=== PATIENT | female | born 1975 | race Hispanic/Latino ===

== ENCOUNTER 2020-04-20 00:37 | Emergency (ER) | payer SELFPAY ==
[2020-04-20] VITALS (13 sets, daily range): BP systolic 98–111; BP diastolic 51–75; PULSE 86–130; RESP 15–28; TEMP 38; O2SAT 98–100
--- NOTE | ~2020-04-20 | CT_ITS ---
EXAMINATION: CT abdomen pelvis wo con DATE: 04/20/2020 01:42 INDICATION: Lower abdomen pain TECHNIQUE: Computed tomography (CT) of the abdomen and pelvis was performed without intravenous contr ast. The dose-length product was 534.82 mGy-cm. Automated exposure control and iterative reconstructi on technique were employed. COMPARISON: None. FINDINGS: Bibasilar dependent atelectasis. Heart size normal. No significant pleural or pericardial e ffusion. No significant vascular abnormality. No lymphadenopathy. Mild left ureterectasis. No obstruc ting stone or mass identified. There are nonobstructing bilateral renal stones. The liver, spleen, pancreas, adrenal glands are unremarkable. Nonobstructive bowel gas pattern. No ac [place] osseous abnormality. No soft tissue abnormality. IMPRESSION: 1. Mild left ureterectasis which may be due to recently passed stone or ascending urinary tract infec tion. 2: Nonobstructing bilateral nephrolithiasis. Reviewed, dictated and finalized at location B. [employer] IMPRESSION: 1. Mild left ureterectasis which may be due to recently passed stone or ascendi ng urinary tract infection. 2: Nonobstructing bilateral nephrolithiasis.
--- NOTE | 2020-04-20 01:24 | ED.ABDPAIN ---
HPI - Abdominal Pain General Chief Complaint: Abdominal Pain Stated Complaint: abd pain, burning when urinating Time Seen by Provider: 04/20/20 01:08 Source: patient Mode of arrival: ambulatory Limitations: no limitations History of Present Illness HPI narrative: Patient is a 44-year-old female complaining of lower abdominal pain accompanied by burning on urination and fever that started today. Patient states that she had nausea earlier but now resolved. Patient denies any chest pain, cough, nasal congestion, shortness of breath, diarrhea or rash. Related Data Allergies Allergy/AdvReac Type Severity Reaction Status Date / Time No Known Allergies Allergy Unverified 10/17/17 15:17 Review of Systems Review of Systems: All systems reviewed & are unremarkable except as noted in HPI and below Constitutional: Constitutional: Denies body ache(s), Denies excessive sweating, Denies fatigue, Denies headache(s), Denies lethargy, Denies malaise, Denies weakness and Denies weight loss Eyes: Eyes: Denies blurry vision, Denies change in vision and Denies loss of vision ENT: Denies dizziness, Denies ear discharge, Denies headache(s), Denies lip swelling, Denies epistaxis, Denies nasal congestion, Denies neck pain, Denies throat swelling and Denies tongue swelling Cardiovascular: Cardiovascular: Denies chest pain, Denies chest pain at rest, Denies chest pain with activity, Denies diaphoresis, Denies rapid heart rate, Denies edema, Denies irregular heart rhythm, Denies lightheadedness, Denies palpitations, Denies dyspnea and Denies dyspnea on exertion Respiratory: Respiratory: Denies chest congestion, Denies cough, Denies hemoptysis, Denies dyspnea and Denies dyspnea on exertion Gastrointestinal: Gastrointestinal: Denies abdominal pain, Denies melena, Denies hematochezia, Denies diarrhea, Denies nausea, Denies vomiting and Denies hematemesis Musculoskeletal: Musculoskeletal: Denies abnormal gait, Denies deformity, Denies joint swelling, Denies limited range of motion, Denies neck pain and Denies numbness Neurologic: Denies Abnormal speech present, Denies abnormal gait, Denies confusion, Denies dizziness, Denies headache(s), Denies focal weakness, Denies loss of vision, Denies numbness, Denies Other visual disturbances, Denies Sensory deficit (Neuro) and Denies weakness Psychiatric: Psychiatric: Denies confusion, Denies depression, Denies auditory hallucinations, Denies homicidal ideation and Denies suicidal ideation Endocrine: Endocrine: Denies cold intolerance, Denies excessive sweating, Denies fatigue, Denies heat intolerance and Denies palpitations Hematologic/Lymphatic: Hematologic/Lymphatic: Denies easy bleeding and Denies easy bruising Allergic/Immunologic: Allergic/Immunologic: Denies lip swelling, Denies throat swelling and Denies tongue swelling Exam Const: General: cooperative, healthy appearing, comfortable, no acute distress, well developed, alert and awake; No confusion Orientation/consciousness: oriented to person, oriented to place, oriented to time, patient oriented x3 and No confusion Limitations: no limitations HENMT: Head: normal to inspection, normocephalic and atraumatic Ears: hearing grossly normal bilaterally, TM normal on the right and TM normal on the left General nose exam: Normal external nose present, Normal nares present and No nasal discharge present Face and sinus: normal facial exam Mouth: Yes Normal oral and palatal mucosa present, Yes lip normal, Yes tongue normal and Yes oropharynx normal Throat: posterior oropharynx normal, tonsils normal and uvula midline Eyes: General: appearance normal, both eyes and all related structures Pupils: Equal, round and reactive pupils present EOM: EOMs intact bilaterally Neck: Neck: normal visual inspection, full ROM, no lymphadenopathy and no meningeal signs Chest: Chest palpation & inspection: normal inspection of the chest Resp: Effort & Inspection: normal respiratory ef
[2020-04-20 01:31] LABS: Basophils Percent Auto 0.1 % (0.2-1.2); Eosinophils Percent Auto 0.1 % (0-4.4); Hematocrit 37.1 % (37.0-47.0); Immature Granulocyte Absolute 0.03 K/mm3 (0.00-0.031); Immature Granulocyte Percent A 0.3 % (0-0.5); Lymphocytes Absolute Auto 0.65 K/mm3 (0.9-3.2); Lymphocytes Percent Auto 7.4 % (18.3-44.2); Mean Corpuscular HGB Conc 32.3 g/dl (32-36); Mean Corpuscular Hemoglobin 28.7 pg (26-34); Mean Corpuscular Volume 88.8 fl (80-100); Mean Platelet Volume 10.8 fl (7.4-10.4); Monocytes Absolute Auto 0.7 K/mm3 (0.1-0.6); Monocytes Percent Auto 8.3 % (2.6-8.5); Neutrophils Absolute Auto 7.4 K/mm3 (1.3-6.7); Neutrophils Percent Auto 83.8 % (45.5-73.1); Platelet Count Result 193 k/mm3 (150-375); Red Blood Count 4.18 M/mm3 (4.2-5.4); Red Cell Distribution Width 19.4 % (11.5-14.5); White Blood Count 8.8 K/mm3 (4.5-10.0)
[2020-04-20 01:42] LABS: Anion Gap 6 mmol/L (8-16); Blood Urea Nitrogen 14 mg/dL (7-17); Calcium 8.7 mg/dL (8.4-10.2); Carbon Dioxide 26 mmol/L (22-30); Chloride 105 mmol/L (98-107); Estimated CRCL calculation 95 ml/min; Estimated Glomerular Filt Rate > 60; Glucose 130 mg/dL (65-105); Potassium 3.6 mmol/L (3.4-5.0); Sodium 137 mmol/L (137-145)
[2020-04-20 01:43] LABS: Add Urine Microscopic? YES; Appearance Urine Cloudy (Clear); Bacteria Urine Trace /hpf; Bilirubin Urine Negative (Negative); Blood Urine 1+ (Negative); Color Urine Yellow (Yellow); Glucose Urine UA Negative (Negative); Ketones Urine Negative (Negative); Leukocyte Esterase Ur 3+ LEU/UL (Negative); Mucus Urine Rare /lpf; Nitrate Urine Negative (Negative); Protein Urine 2+ mg/dL (Negative); RBC Urine 21-50 /hpf (0-2); Specific Grav Ur 1.017 (1.001-1.035); Squamous Epithelial Cell Urine Few /hpf (Few); Urobilinogen Urine Negative mg/dL (<2.0); WBC Urine >75 /hpf
[2020-04-20] MEDS: KETOROLAC 30 MG/ML VIAL (*BKC) IV PUSH (01:47)
[2020-04-20] MEDS: ACETAMINOPHEN 325 MG TABLET 650 MG PO (01:47)
[2020-04-20] MEDS: SODIUM CHLORIDE 0.9% IV 1,000 ML 999 ML IV CONT (01:47)
[2020-04-20] MEDS: ONDANSETRON INJ 4 MG/2 ML VIAL IV PUSH (01:47)
== END 2020-04-20 03:32 | disposition home or self-care (01) ==
PROVIDERS: Emergency Provider Emergency Medicine; PCP Nurse Practitioner Women's Health
DX: N10 Acute pyelonephritis (principal)
CPT/HCPCS: 36415; 74176; 80048; 81001; 81025; 85025; 87077; 87086; 87088; 87186; 96361; 96374; 96375; 99284; A9270; J0696; J1885; J2405; J7030

== ENCOUNTER 2020-10-22 21:11 | Emergency (ER) | payer MEDICAID, SELFPAY ==
--- NOTE | ~2020-10-22 | US_ITS ---
EXAMINATION: US OB <=14 wk fetus w TV DATE: 10/23/2020 01:01 INDICATION: Ectopic . Bleeding and cramping. TECHNIQUE: Real-time transabdominal and transvaginal obstetric ultrasound. FINDINGS: No prior studies for comparison. The uterus measures 11.1 x 6.8 cm. There is an intrauterine gestational sac, with pole identifi ed. The crown rump length measures 0.35 cm, which correlates with a estimated gestational age of 6 w eeks 0 days. No heart motions detected. Yolk sac is present. Ovaries are not visualized. There is a hypoechoic region along the inferior margin of the gestational sac, suspicious for small subchor ionic hemorrhage. IMPRESSION: 1. Intrauterine gestational sac containing a pole which corresponds to a 6 week 0 day gestation . No heart motions are detected which may be due to early gestational age. Recommend follow-up serial quantitative beta-hCG levels and ultrasound as clinically indicated. 2: Possible small subchorionic hemorrhage. Reviewed, dictated and finalized at location B. IMPRESSION: 1. Intrauterine gestational sac containing a pole which corresponds to a 6 week 0 day gestation. No heart motions are detected which may be due to early gestational age. Recommend follow-up serial quantitative beta-hCG levels and ultrasound as clinically indicated. 2: Possible small subchorionic hemorrhage.
[2020-10-22 21:29] VITALS: BP 113/65; PULSE 71; RESP 18; TEMP 36.6; O2SAT 99
[2020-10-22 21:43] LABS: Basophils Percent Auto 0.3 % (0.2-1.2); Eosinophils Absolute Auto 0.1 K/mm3 (0-0.3); Eosinophils Percent Auto 1.4 % (0-4.4); Hematocrit 38.1 % (37.0-47.0); Hemoglobin 12.3 g/dL (12.0-15.0); Immature Granulocyte Absolute 0.01 K/mm3 (0.00-0.031); Immature Granulocyte Percent A 0.2 % (0-0.5); Lymphocytes Absolute Auto 3.15 K/mm3 (0.9-3.2); Lymphocytes Percent Auto 48.5 % (18.3-44.2); Mean Corpuscular HGB Conc 32.3 g/dl (32-36); Mean Corpuscular Hemoglobin 30.4 pg (26-34); Mean Corpuscular Volume 94.1 fl (80-100); Mean Platelet Volume 10.7 fl (7.4-10.4); Monocytes Absolute Auto 0.4 K/mm3 (0.1-0.6); Monocytes Percent Auto 6.8 % (2.6-8.5); Neutrophils Absolute Auto 2.8 K/mm3 (1.3-6.7); Neutrophils Percent Auto 42.8 % (45.5-73.1); Platelet Count Result 210 k/mm3 (150-375); Red Blood Count 4.05 M/mm3 (4.2-5.4); Red Cell Distribution Width 14.2 % (11.5-14.5); White Blood Count 6.5 K/mm3 (4.5-10.0)
--- NOTE | 2020-10-22 23:38 | ED.FEMALEGU ---
HPI - Female Genitourinary General Chief complaint: Vaginal Bleeding <Marian Vargas MD - Last Filed: 10/22/20 23:51> Stated complaint: vaginal bleeding, 10 weeks <Marian Vargas MD - Last Filed: 10/22/20 23:51> Time Seen by Provider: 10/22/20 23:18 <Marian Vargas MD - Last Filed: 10/22/20 23:51> Source: patient and family <Marian Vargas MD - Last Filed: 10/22/20 23:51> Mode of arrival: ambulatory <Marian Vargas MD - Last Filed: 10/22/20 23:51> Limitations: no limitations <Marian Vargas MD - Last Filed: 10/22/20 23:51> History of Present Illness HPI Narrative: Patient is 45 years old female presents with vaginal bleeding that started 3 days ago. Initially was brown, today is fresh red bright blood. Associated with slight diffuse abdominal cramps. Patient is telling me that she is 10 weeks , does not remember her last menstrual period, did not have any pelvic ultrasound yet. Patient is 7, para 5, 1. Patient denies any fever, chills, nausea, vomiting, chest pain or shortness of breath. History of COVID-19 infection April 2020, did not get vaccinated yet. <Marian Vargas MD - Last Filed: 10/22/20 23:51> Related Data Home medications: Home Medications Medication Instructions Recorded Confirmed No Home Medications 10/22/20 10/22/20 <Marian Vargas MD - Last Filed: 10/22/20 23:51> Allergies/Adverse reactions: Allergies Allergy/AdvReac Type Severity Reaction Status Date / Time No Known Allergies Allergy Unverified 10/22/20 23:45 <Marian Vargas MD - Last Filed: 10/22/20 23:51> Review of Systems Review of Systems: Narrative: CONSTITUTIONAL: Denies fever, chills, or sweats. EYES: Denies visual changes, redness, or discharge. ENT: Denies rhinorrhea, congestion, sore throat, or otalgia. CARDIOVASCULAR: Denies chest pain, palpitations, or edema. RESPIRATORY: Denies cough or dyspnea. GASTROINTESTINAL: Denies abdominal pain, nausea, vomiting, or diarrhea. GENITOURINARY: Denies dysuria or hematuria. SKIN: Denies rash or itching. MUSCULOSKELETAL: Denies back pain, joint pain, or myalgia. NEUROLOGIC: Denies headache, numbness, or weakness. PSYCHIATRIC: Denies anxiety or depression. <Marian Vargas MD - Last Filed: 10/22/20 23:51> Exam Narrative: Exam Narrative: General appearance: Well-developed, well-nourished, anxious, in tears, at the bedside Skin: Normal color Chest and respiratory: Airway patent, no respiratory distress, no accessory muscle use Heart: Regular rate/rhythm Abdomen: Soft, nontender, no organomegaly, quiet bowel sounds <Marian Vargas MD - Last Filed: 10/22/20 23:51> : External Female Exam: normal external appearance and normal appearance of the urethra <Marian Vargas MD - Last Filed: 10/22/20 23:51> Speculum Exam - Vagina: normal appearance of the vagina and vaginal bleeding (Slight vaginal bleeding of fresh red bright blood) <Marian Vargas MD - Last Filed: 10/22/20 23:51> Speculum Exam - Cervix: normal appearance of the cervix and Cervical os closed <Marian Vargas MD - Last Filed: 10/22/20 23:51> Bimanual exam- vagina & uterus: normal bimanual exam and enlarged <Marian Vargas MD - Last Filed: 10/22/20 23:51> Course Course Emergency Course: Stable <Marian Vargas MD - Last Filed: 10/22/20 23:51> Care turned over to myself at shift change by Dr. Vargas. Patient seen and evaluated by myself. Agree with initial H&P Discussed with Dr. Alarcon for Dr. Epps presentation work-up agrees with plan for discharge follow-up as an outpatient Discussed with patient results of workup and diagnosis. Discussed need for follow-up with primary care, proper use of medication, and reasons to return to the emergency d
[2020-10-22 23:57] VITALS: BP 108/71; PULSE 61
[2020-10-22 23:59] VITALS: BP 108/71; BP 112/74; PULSE 64; O2SAT 97
[2020-10-23] VITALS: BP 112/74; O2SAT 100
--- NOTE | 2020-10-23 00:07 | PC.NURSE ---
Pt. was unable to complete the third set of orthostatic blood pressures due to fear from her bleeding.
[2020-10-23] MEDS: SODIUM CHLORIDE 0.9% IV 1,000 ML 999 ML IV CONT (00:10)
--- NOTE | 2020-10-23 00:35 | PC.NURSE ---
Pt to US at this time
[2020-10-23 01:05] VITALS: BP 118/72; PULSE 81; RESP 17; O2SAT 100
[2020-10-23 01:09] VITALS: BP 118/72; O2SAT 100
[2020-10-23 02:05] LABS: Basophils Percent Auto 0.3 % (0.2-1.2); Eosinophils Absolute Auto 0.1 K/mm3 (0-0.3); Eosinophils Percent Auto 1.2 % (0-4.4); Hematocrit 34.4 % (37.0-47.0); Hemoglobin 11.3 g/dL (12.0-15.0); Immature Granulocyte Absolute 0.02 K/mm3 (0.00-0.031); Immature Granulocyte Percent A 0.3 % (0-0.5); Lymphocytes Absolute Auto 2.88 K/mm3 (0.9-3.2); Lymphocytes Percent Auto 44.1 % (18.3-44.2); Mean Corpuscular HGB Conc 32.8 g/dl (32-36); Mean Corpuscular Hemoglobin 30.7 pg (26-34); Mean Corpuscular Volume 93.5 fl (80-100); Mean Platelet Volume 10.6 fl (7.4-10.4); Monocytes Absolute Auto 0.5 K/mm3 (0.1-0.6); Monocytes Percent Auto 7.5 % (2.6-8.5); Neutrophils Percent Auto 46.6 % (45.5-73.1); Platelet Count Result 181 k/mm3 (150-375); Red Blood Count 3.68 M/mm3 (4.2-5.4); Red Cell Distribution Width 14.2 % (11.5-14.5); White Blood Count 6.5 K/mm3 (4.5-10.0)
--- NOTE | 2020-10-23 02:23 | PC.NURSE ---
Lab called about delay in blood work, lab states they will get it done shortly.
[2020-10-23 02:27] VITALS: BP 97/67; PULSE 73; RESP 18; O2SAT 100
[2020-10-23 02:29] VITALS: BP 114/82
[2020-10-23 03:34] VITALS: BP 104/64; PULSE 65; RESP 18; O2SAT 99
== END 2020-10-23 03:16 | disposition home or self-care (01) ==
PROVIDERS: Emergency Medicine; Emergency Provider Emergency Medicine; PCP Nurse Practitioner Women's Health
DX: O20.0 Threatened abortion (principal); O09.521 Supervision of elderly multigravida, first trimester; Z86.16 Personal history of COVID-19; Z3A.01 Less than 8 weeks gestation of pregnancy
CPT/HCPCS: 36415; 76801; 76817; 84702; 85025; 85461; 96360; 99284; J7030

== ENCOUNTER 2023-07-16 17:20 | Emergency (ER) | payer BC, SELFPAY ==
[2023-07-16 17:40] VITALS: BP 112/53; PULSE 70; RESP 16; TEMP 36.2; O2SAT 100
[2023-07-16 19:35] VITALS: BP 107/63; PULSE 68; RESP 16; TEMP 36.6; O2SAT 100
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
[2023-07-16] MEDS: ACETAMINOPHEN 500 MG TABLET 1000 MG PO (19:54)
[2023-07-16] MEDS: KETOROLAC 15 MG/ML VIAL (*BKC) IV PUSH (19:56)
[2023-07-16] MEDS: PROCHLORPERAZINE EDISYLATE 10 MG/2 ML VIAL IV PUSH (19:57)
[2023-07-16 20:41] LABS: Influenza A QL RT-PCR Negative (Negative); Influenza B QL RT-PCR Negative (Negative); RSV RNA, RT-PCR Negative (Negative); SARS-CoV-2 RNA PCR Negative (Negative)
[2023-07-16 20:57] VITALS: BP 117/83; PULSE 67; RESP 16; TEMP 36.6; O2SAT 99
== END 2023-07-16 21:01 | disposition home or self-care (01) ==
PROVIDERS: Emergency Provider Student in an Organized Health Care Education/Training Program
DX: R51.9 Headache, unspecified (principal); Z20.822 Contact with and (suspected) exposure to COVID-19
CPT/HCPCS: 87637; 96374; 96375; 99284; A9270; J0780; J1885; J7050

== ENCOUNTER 2023-09-19 17:43 | Emergency (ER) | payer SELFPAY ==
[2023-09-19 17:48] VITALS: BP 111/67; PULSE 77; RESP 20; TEMP 36.5; O2SAT 100
--- NOTE | 2023-09-19 21:09 | ED.GENADULT ---
[facility] - General Adult General Chief complaint: Headache Stated complaint: headache x5 days Time Seen by Provider: 09/19/23 20:48 Source: patient Mode of arrival: ambulatory Limitations: no limitations History of Present Illness [facility] narrative: This is a 48-year-old female who presents to the ED with chief complaint of 5 days of headache. Reports it is worse on the right side. She reports the headache radiates from right temporal scalp lesion down to the right side the neck and shoulder. Reports she has had migraines in the past but never 1 that lasted this long. Reports some intermittent tingling to her extremities but that has since resolved. Reports a little bit of sinus congestion but has not feeling ill otherwise. She has been taking Tylenol 1 g for pain relief with minimal improvement. Endorses nausea but no vomiting. Denies neck stiffness, fevers, chills, chest pain, shortness of breath, focal weakness, speech difficulty, vision change, abdominal pain. Related Data Allergies Allergy/AdvReac Type Severity Reaction Status Date / Time No Known Allergies Allergy Verified 09/19/23 21:13 Review of Systems Review of Systems: All systems as dictated in [facility] Social History Social History (Updated 07/18/23 @ 00:14 by Carin Quach MD) Living arrangements: with family Additional living arrangements comments: and kids Exam Narrative: GENERAL: Well-appearing, well-nourished, and in no acute distress. HEAD: Normocephalic, atraumatic. EYES: PERRLA and EOMI. ENT: Nares clear, no rhinorrhea or epistaxis. Mucous membranes moist. Oropharynx without tonsillar hypertrophy exudate or other lesions. NECK: Supple. No adenopathy or masses. No meningeal signs CHEST: No respiratory distress. Clear to auscultation. No wheezes rales or rhonchi HEART: Regular rate and rhythm. No murmur heard. Normal peripheral pulses. ABDOMEN: Soft, nontender, nondistended, normal active bowel sounds. MSK: Normal range of motion. No edema. SKIN: Warm, dry, no rash. NEURO: Alert and oriented x4. No focal deficits. Cranial nerves 2-12 intact. 5/5 strength and sensation in the upper and lower extremities. Ambulatory without difficulty. Negative pronator drift. Coordination intact. PSYCH: Normal mood and affect. Course Reevaluation(s) Reevaluation #1: Patient is feeling much improved overall after migraine cocktail. She feels ready to go home. Date: 09/19/23 Time: 22:34 Vital Signs Vital signs: Vital Signs Temperature 97.7 F 09/19/23 17:48 Pulse Rate 77 09/19/23 17:48 Respiratory Rate 20 09/19/23 17:48 Blood Pressure 111/67 09/19/23 17:48 Pulse Oximetry 100 09/19/23 17:48 Temperature 97.7 F 09/19/23 17:48 Pulse Rate 69 09/19/23 23:15 Respiratory Rate 18 09/19/23 23:15 Blood Pressure 107/65 09/19/23 23:15 Pulse Oximetry 100 09/19/23 23:15 Medical Decision Making MDM Narrative Medical decision making narrative: This is a 48-year-old female who presents to the ED with chief complaint of migraine headache for the past 5 days. Vitals are normal. Exam is benign. No meningeal signs. Neurologic exam is fully intact. Lab work is unremarkable. She improved greatly with headache cocktail. She feels ready to go home. Symptoms and presentation consistent with migraine. Pt will be discharged in stable condition. Return precautions given and supportive measures discussed. Pt is understanding and agreeable with plan for discharge and follow-up with PCP. Vital Signs Vital Signs: Vital Signs Temperature 97.7 F 09/19/23 17:48 Pulse Rate 77 09/19/23 17:48 Respiratory Rate 20 09/19/23 17:48 Blood Pressure 111/67 09/19/23 17:48 Pulse Oximetry 100 09/19/23 17:48 Temperature 97.7 F 09/19/23 17:48 Pulse Rate 69 09/19/23 23:15 Respiratory Rate 18 09/19/23 23:15 Blood Pressure 107/65 09/19/23 23:15 Pulse Oximetry 100 09/19/23 23:15 Lab Da
[2023-09-19] MEDS: diphenhydrAMINE HCl INJ 50 MG/ML VIAL 25 MG IV PUSH (21:19)
[2023-09-19] MEDS: PROCHLORPERAZINE EDISYLATE 10 MG/2 ML VIAL IV PUSH (21:21)
[2023-09-19] MEDS: KETOROLAC 15 MG/ML VIAL (*BKC) IV PUSH (21:22)
[2023-09-19] MEDS: SODIUM CHLORIDE 0.9% IV 1,000 ML 999 ML IV CONT (21:27)
[2023-09-19 21:30] LABS: Basophils Percent Auto 0.1 % (0.2-1.2); Eosinophils Absolute Auto 0.1 K/mm3 (0-0.3); Eosinophils Percent Auto 1.5 % (0-4.4); Hematocrit 34.5 % (37.0-47.0); Hemoglobin 10.9 g/dL (12.0-15.0); Immature Granulocyte Absolute 0.01 K/mm3 (0.00-0.031); Immature Granulocyte Percent A 0.1 % (0-0.5); Lymphocytes Percent Auto 44.3 % (18.3-44.2); Mean Corpuscular HGB Conc 31.6 g/dl (32-36); Mean Corpuscular Hemoglobin 28.7 pg (26-34); Mean Corpuscular Volume 90.8 fl (80-100); Mean Platelet Volume 10.8 fl (7.4-10.4); Monocytes Absolute Auto 0.5 K/mm3 (0.1-0.6); Monocytes Percent Auto 6.2 % (2.6-8.5); Neutrophils Absolute Auto 3.5 K/mm3 (1.3-6.7); Neutrophils Percent Auto 47.8 % (45.5-73.1); Platelet Count Result 213 k/mm3 (150-375); Red Cell Distribution Width 13.6 % (11.5-14.5); White Blood Count 7.2 K/mm3 (4.5-10.0)
[2023-09-19 21:40] LABS: Alanine Aminotransferase 16 U/L (6-35); Albumin Level 4.2 g/dL (3.5-5.1); Alkaline Phosphatase 67 U/L (38-126); Anion Gap 4 mmol/L (4-12); Aspartate Amino Transferase 24 U/L (14-36); Bilirubin,Total 0.4 mg/dL (0.2-1.3); Blood Urea Nitrogen 16 mg/dL (7-17); Calcium 8.9 mg/dL (8.4-10.2); Carbon Dioxide 25 mmol/L (22-30); Chloride 107 mmol/L (98-107); Estimated CRCL calculation 126 ml/min; Estimated Glomerular Filt Rate > 60; Glucose 97 mg/dL (65-110); Potassium 3.6 mmol/L (3.4-5.0); Sodium 136 mmol/L (137-145)
[2023-09-19 23:15] VITALS: BP 107/65; PULSE 69; RESP 18; O2SAT 100
== END 2023-09-19 23:15 | disposition home or self-care (01) ==
PROVIDERS: Emergency Provider Physician Assistant
DX: G43.909 Migraine, unspecified, not intractable, without status migrainosus (principal)
CPT/HCPCS: 36415; 80053; 85025; 96361; 96374; 96375; 99284; J0780; J1200; J1885; J7030

== ENCOUNTER 2024-07-27 11:42 | Emergency (ER) | payer OTHER, SELFPAY ==
--- NOTE | ~2024-07-27 | CT_ITS ---
CT brain wo con Ordering provider: Jeane Darling PA-C History: 49 years Female with . headache, dizziness . Comparison: None. Technique: CT of the head without contrast. Radiation reduction technique utilized.The dose-length pr oduct was 681 mGy-cm. FINDINGS: BRAIN PARENCHYMA AND CSF SPACES: No midline shift, mass effect or hemorrhage. The brain parenchyma a nd CSF spaces are otherwise normal. VISUALIZED PARANASAL SINUSES: Well aerated. MASTOIDS: Well aerated. BONES: The bones appear intact. SOFT TISSUES: Visualized nasopharynx is normal. Superficial soft tissues are normal. IMPRESSION: No acute intracranial findings. Reviewed, dictated and finalized at location A.
[2024-07-27 11:50] VITALS: BP 105/64; PULSE 65; RESP 16; TEMP 36.6; O2SAT 100
--- NOTE | 2024-07-27 13:08 | ED_ITS ---
HPI - Headache General Chief Complaint: Headache <Jeane Darling PA-C - Last Filed: 07/30/24 10:15> Stated Complaint: headache <Jeane Darling PA-C - Last Filed: 07/30/24 10:15> Time Seen by Provider: 07/27/24 13:08 <Jeane Darling PA-C - Last Filed: 07/30/24 10:15> Focused HPI: This is a 49 year old female that presents to the ER for a headache. Ongoing over the last 2 days. Reports Tylenol does help, but it comes back. Reports today she feels like she can't focus and she feels unsteady on her feet. Reports nausea, vomiting. Reports a fever. Reports migraine history, but she does not take any prescribed medication for this. GENERAL: Well-appearing, well-nourished, and in no acute distress. HEAD: Normocephalic, atraumatic. CHEST: Clear to auscultation. ?No respiratory distress. HEART: Regular rate and rhythm.? NEURO: ?Alert and oriented x3. Patient screened in triage and initial orders placed.? ?Additional care and disposition to be based upon?diagnostic testing and treatment. <Jeane Darling PA-C - Last Filed: 07/30/24 10:15> History of Present Illness HPI Narrative: Agree with the HPI above. Patient states this feels similar to her previous migraines and responds well to IV migraine cocktail. Has not been evaluated for migraines outpatient or seen a neurologist. No trauma or injury. No fever, chills, meningismus symptoms. <Misael Quinones MD - Last Filed: 07/27/24 17:42> Related Data Allergies/Adverse Reactions: Allergies Allergy/AdvReac Type Severity Reaction Status Date / Time No Known Allergies Allergy Verified 07/27/24 14:55 <Jeane Darling PA-C - Last Filed: 07/30/24 10:15> Review of Systems 2 Review of Systems: As reviewed above in HPI <Misael Quinones MD - Last Filed: 07/27/24 17:42> PMFSH Social History Social History: Social History Living arrangements: with family Additional living arrangements comments: and kids <Jeane Darling PA-C - Last Filed: 07/30/24 10:15> Exam 2 Narrative: GENERAL: [Well-appearing, well-nourished, and in no acute distress.] HEAD: [Normocephalic, atraumatic.] EYES: [PERRLA and EOMI.] ENT: Nares clear, no rhinorrhea or epistaxis. Mucous membranes moist. NECK: Supple. CHEST: [Clear to auscultation. No respiratory distress.] HEART: [Regular rate and rhythm]. No murmur heard. [Normal peripheral pulses.] ABDOMEN: [Soft, nondistended], [nontender], [No rigidity or guarding] EXTREMITIES: Normal range of motion. [No edema.] SKIN: Warm, dry, no rash. NEURO: [No focal deficits]. Alert and oriented [x3.] PSYCH: [Normal mood and affect.] <Misael Quinones MD - Last Filed: 07/27/24 17:42> Course Vital Signs Vital signs: Vital Signs Temperature 97.9 F 07/27/24 11:50 Pulse Rate 65 07/27/24 11:50 Respiratory Rate 16 07/27/24 11:50 Blood Pressure 105/64 07/27/24 11:50 Pulse Oximetry 100 07/27/24 11:50 Temperature 97.9 F 07/27/24 11:50 Pulse Rate 82 07/27/24 17:57 Respiratory Rate 18 07/27/24 17:57 Blood Pressure 114/65 07/27/24 17:57 Pulse Oximetry 99 07/27/24 17:57 <Jeane Darling PA-C - Last Filed: 07/30/24 10:15> Vital Signs Temperature 97.9 F 07/27/24 11:50 Pulse Rate 65 07/27/24 11:50 Respiratory Rate 16 07/27/24 11:50 Blood Pressure 105/64 07/27/24 11:50 Pulse Oximetry 100 07/27/24 11:50 Temperature 97.9 F 07/27/24 11:50 Pulse Rate 82 07/27/24 17:57 Respiratory Rate 18 07/27/24 17:57 Blood Pressure 114/65 03/11/25 17:57 Pulse Oximetry 99 07/27/24 17:57 <Misael Quinones MD - Last Filed: 07/27/24 17:42> MDM - Headache MDM Narrative Medical decision making narrative: 49-year-old female with history of migraine headaches presenting for an intermittent migraine for last 10 days. Associated some nausea without vomiting. She states she feels somewhat dizzy but no falls. Has tried Tylenol at home with some mild relief and then her headache rebounds. Has not been evaluated for migraines outside the hospital. Has not seen a neurologist. She has an unremarkable physical examination, normal neurological assessment awake alert oriented with normal vital signs. Presently differential includes migraine headache, tension headache, cluster headache, cephalgia other cause. Low suspicion meningismus given her lack of fever or meningitis type symptoms. Workup ordered including a CBC, CMP, CT of the head and she was given a migraine cocktail including Compazine, diphenhydramine, Decadron, normal saline bolus. Patient frequent re-evaluated and improved after treatment. Workup shows no leukocytosis, anemia that appears around her baseline compared to previous labs. Normal platelet count. Electrolytes within normal limits, normal renal and hepatic function panel. Head CT without any remarkable findings. Patient re-evaluated with improvement her headache. She is stable and safe for discharge home at this time and given Neurology follow-up for her migraines. <Misael Quinones MD - Last Filed: 07/27/24 17:42> Medical Records Attestation: I reviewed the patient's medical records. <Misael Quinones MD - Last Filed: 07/27/24 17:42> Lab Data Attestation: I reviewed the patient's lab results. <Misael Quinones MD - Last Filed: 07/27/24 17:42> Result diagrams: 07/27/24 15:50 07/27/24 15:50 <Jeane Darling PA-C - Last Filed: 07/30/24 10:15> Labs: Lab Results 07/27/24 Range/Units 15:50 WBC 6.3 (4.5-10.0) K/mm3 RBC 4.19 L (4.2-5.4) M/mm3 Hgb 9.5 L (12.0-15.0) g/dL Hct 31.4 L (37.0-47.0) % MCV 74.9 L (80-100) fl MCH 22.7 L (26-34) pg MCHC 30.3 L (32-36) g/dl RDW 18.6 H (11.5-14.5) % Plt Count 332 D (150-375) k/mm3 MPV 10.4 (7.4-10.4) fl Immature Gran % (Auto) 0.2 (0-0.5) % Neut % (Auto) 42.1 L (45.5-73.1) % Lymph % (Auto) 50.0 H (18.3-44.2) % [place] % (Auto) 5.8 (2.6-8.5) % Eos % (Auto) 1.4 (0-4.4) % Baso % (Auto) 0.5 (0.2-1.2) % Lymph # (Auto) 3.13 (0.9-3.2) K/mm3 [place] # (Auto) 0.4 (0.1-0.6) K/mm3 Eos # (Auto) 0.1 (0-0.3) K/mm3 Baso # (Auto) 0.0 (0.0-0.1) K/mm3 Abs Immat Gran (auto) 0.01 (0.00-0.031) K/mm3 Absolute Neuts (auto) 2.6 (1.3-6.7) K/mm3 Absolute Nucleated RBC 0.000 (0.0-0.012) K/mm3 Band Neutrophils % Not Reportable Nucleated RBC % 0.0 (0.0-0.2) % Platelet Estimate Adequate (Adequate) Ovalocytes 1+ Schistocytes None seen Sodium 137 (137-145) mmol/L Potassium 3.8 (3.4-5.0) mmol/L Chloride 104 (98-107) mmol/L Carbon Dioxide 24 (22-30) mmol/L Anion Gap 9 (4-12) mmol/L BUN 15 (7-17) mg/dL Creatinine 0.53 L (0.7-1.0) mg/dL Estim Creat Clear Calc 116 ml/min Estimated GFR > 60 (59 - ) Glucose 101 (65-110) mg/dL Calcium 9.4 (8.4-10.2) mg/dL Total Bilirubin 0.4 (0.2-1.3) mg/dL AST 26 (14-36) U/L ALT 23 (6-35) U/L Alkaline Phosphatase 74 (38-126) U/L Total Protein 8.0 (6.3-8.2) g/dL Albumin 4.7 (3.5-5.1) g/dL Influenza A (RT-PCR) Negative (Negative) Influenza B (RT-PCR) Negative (Negative) RSV (RT-PCR) Negative (Negative) SARS-CoV-2 RNA (RT-PCR) Negative (Negative) <Jeane Darling PA-C - Last Filed: 07/30/24 10:15> Lab Results 07/27/24 Range/Units 15:50 WBC 6.3 (4.5-10.0) K/mm3 RBC 4.19 L (4.2-5.4) M/mm3 Hgb 9.5 L (12.0-15.0) g/dL Hct 31.4 L (37.0-47.0) % MCV 74.9 L (80-100) fl MCH 22.7 L (26-34) pg MCHC 30.3 L (32-36) g/dl RDW 18.6 H (11.5-14.5) % Plt Count 332 D (150-375) k/mm3 MPV 10.4 (7.4-10.4) fl Immature Gran % (Auto) 0.2 (0-0.5) % Neut % (Auto) 42.1 L (45.5-73.1) % Lymph % (Auto) 50.0 H (18.3-44.2) % [place] % (Auto) 5.8 (2.6-8.5) % Eos % (Auto) 1.4 (0-4.4) % Baso % (Auto) 0.5 (0.2-1.2) % Lymph # (Auto) 3.13 (0.9-3.2) K/mm3 [place] # (Auto) 0.4 (0.1-0.6) K/mm3 Eos # (Auto) 0.1 (0-0.3) K/mm3 Baso # (Auto) 0.0 (0.0-0.1) K/mm3 Abs Immat Gran (auto) 0.01 (0.00-0.031) K/mm3 Absolute Neuts (auto) 2.6 (1.3-6.7) K/mm3 Absolute Nucleated RBC 0.000 (0.0-0.012) K/mm3 Band Neutrophils % Not Reportable Nucleated RBC % 0.0 (0.0-0.2) % Platelet Estimate Adequate (Adequate) Ovalocytes 1+ Schistocytes None seen Sodium 137 (137-145) mmol/L Potassium 3.8 (3.4-5.0) mmol/L Chloride 104 (98-107) mmol/L Carbon Dioxide 24 (22-30) mmol/L Anion Gap 9 (4-12) mmol/L BUN 15 (7-17) mg/dL Creatinine 0.53 L (0.7-1.0) mg/dL Estim Creat Clear Calc 116 ml/min Estimated GFR > 60 (59 - ) Glucose 101 (65-110) mg/dL Calcium 9.4 (8.4-10.2) mg/dL Total Bilirubin 0.4 (0.2-1.3) mg/dL AST 26 (14-36) U/L ALT 23 (6-35) U/L Alkaline Phosphatase 74 (38-126) U/L Total Protein 8.0 (6.3-8.2) g/dL Albumin 4.7 (3.5-5.1) g/dL Influenza A (RT-PCR) Negative (Negative) Influenza B (RT-PCR) Negative (Negative) RSV (RT-PCR) Negative (Negative) SARS-CoV-2 RNA (RT-PCR) Negative (Negative) <Misael Quinones MD - Last Filed: 07/27/24 17:42> Imaging Data Attestation: I personally reviewed and interpreted this imaging study as follows: < Misael Quinones MD - Last Filed: 07/27/24 17:42> My impression: Impressions Head CT 07/27/24 13:23 IMPRESSION: No acute intracranial findings. <Misael Quinones MD - Last Filed: 07/27/24 17:42> Critical Care Time Critical Care Time Critical Care Time: No <Jeane Darling PA-C - Last Filed: 07/30/24 10:15> Discharge Plan Discharge Clinical Impression: Migraine Qualifiers: Migraine type: unspecified Status migrainosus presence: without status migrainosus Intractability: not intractable Qualified Code(s): G43.909 - Migraine, unspecified, not intractable, without status migrainosus <Jeane Darling PA-C - Last Filed: 07/30/24 10:15> Patient Disposition: Home, Self-Care <Jeane Darling PA-C - Last Filed: 07/30/24 10:15> Condition: Stable <Jeane Darling PA-C - Last Filed: 07/30/24 10:15> Instructions: Antibiotic Form, Migraine Headache (ED), Acute Headache (ED) <Jeane Darling PA-C - Last Filed: 07/30/24 10:15> Additional Instructions: Your workup is reassuring, head CT normal. Follow-up with regular doctor and will provide you a neurologist you can contact for outpatient follow-up and evaluation. Return with any new or worsening concerns. <Jeane Darling PA-C - Last Filed: 07/30/24 10:15> Patient Language: Korean <Jeane Darling PA-C - Last Filed: 07/30/24 10:15> Prescriptions: No Action acetaminophen 500 mg capsule 1,000 mg PO Q6H PRN (Reason: pain) Qty: 30 0RF ibuprofen 200 mg tablet 600 mg PO Q6H PRN (Reason: pain) Qty: 30 0RF <Jeane Darling PA-C - Last Filed: 07/30/24 10:15> Follow-up/Referrals: Raymond Villanueva MD [Physician] - 1 Week (Recurrent migraines) UNKNOWN,DOCTOR [Primary Care Provider] - <Jeane Darling PA-C - Last Filed: 07/30/24 10:15> Time of Disposition: 17:41 <Jeane Darling PA-C - Last Filed: 07/30/24 10:15> 17:41 <Misael Quinones MD - Last Filed: 03/11/25 17:42>
--- OUTSIDE RECORDS SUMMARY | 2024-07-27 13:19 | XMS_ITS | Data Portability ---
Author Organization [place] [facility], Main Office Address [address] [place] [address] Care Team Providers Care Consultants Intern Name Role Phone AJIT NIXON Primary Care Provider AJIT NIXON Referring Provider Assessment Encounter Date Assessment Date Assessment LastModified by Organization Details LastModified Time 12/03/2022 12/03/2022 This note is dictated and transcribed by [employer]. Tactical/Mobile Watch Officer variances may occur. Despite proofreading, typographical errors may occur. Not available 12/03/2022 09:12:42 03/11/2023 03/11/2023 This note is dictated and transcribed by [employer]. Tactical/Mobile Watch Officer variances may occur. Despite proofreading, typographical errors may occur. Not available 03/12/2023 12:00:50 Plan of Treatment Reminders Order Date Submit Date Provider Last Modified By Organization Details Last Modified Time Details Appointments None recorde d. Lab None recorde d. Referral None recorde d. Procedures None recorde d. Surgeries None recorde d. Imaging US, ankle 023 12/04/19 23 [facility] ([facility]), [address] [place], [address], 14:39:42 Medication Orders None recorde d. Patient TargetsNo targets recorded. Patient InstructionsNo instructions recorded. Reason for Referral None Reported. Results Created Date Observation Date Name Description Value Unit Range Abnormal Flag Note LastModifiedBy Organization Detail LastModifiedTime 07/24/19 22 07/23/2021 CBC W/O DIFFE RENTI AL white blood cells 6.7 x10'3 /uL 4.2-10 .8 Not Available [facility] (Lab) [address] [place], [address], 07/23/2021 18:04:32 07/24/19 22 07/23/2021 CBC W/O DIFFE RENTI AL red blood cells 4.14 x10'6 /uL 3.80-5 .20 Not Available [facility] (Lab) [address] [place], [address], 07/23/2021 18:04:32 07/24/19 22 07/23/2021 CBC W/O DIFFE RENTI AL hemoglobin 11.5 g/dL 12.0-1 5.6 low Not Available [facility] (Lab) [address] [place], [address], 07/23/2021 18:04:32 07/24/19 22 07/23/2021 CBC W/O DIFFE RENTI AL hematocrit 36.8 % 35.7-4 5.7 Not Available [facility] (Lab) [address] [place], [address], 07/23/2021 18:04:32 07/24/19 22 07/23/2021 CBC W/O DIFFE RENTI AL mean red cell volume 88.9 fL 82.0-9 9.0 Not Available [facility] (Lab) [address] [place], [address], 07/23/2021 18:04:32 07/24/19 22 07/23/2021 CBC W/O DIFFE RENTI AL mean red cell hemoglobin 27.8 pg 27.0-3 3.0 Not Available [facility] (Lab) [address] [place], [address], 07/23/2021 18:04:32 07/24/19 22 07/23/2021 CBC W/O DIFFE RENTI AL mean RBC HGB concentratio n 31.3 g/dL 31.0-3 6.0 Not Available [facility] (Lab) [address] [place], [address], 07/23/2021 18:04:32 07/24/19 22 07/23/2021 CBC W/O DIFFE RENTI AL red cell distribution width 14.9 % 11.8-1 5.5 Not Available [facility] (Lab) [address] [place], [address], 07/23/2021 18:04:32 07/24/19 22 07/23/2021 CBC W/O DIFFE RENTI AL platelets 245 x10'3 /uL 150-40 0 Not Available [facility] (Lab) [address] [place], [address], 07/23/2021 18:04:32 07/24/19 22 07/23/2021 CBC W/O DIFFE RENTI AL mean platelet volume 11.0 fL 9.0-12 .4 Not Available [facility] (Lab) [address] [place], [address], 07/23/2021 18:04:32 07/24/19 22 07/23/2021 APTT APTT 27.5 secon ds 22.2-3 1.5 Not Available [facility] (Lab) [address] [place], [address], 07/23/2021 17:57:10 07/24/19 22 07/23/2021 PROTI ME W/INR protime 10.6 secon ds 9.5-11 .5 Not Available [facility] (Lab) [address] [place], [address], 07/23/2021 17:57:05 07/24/19 22 07/23/2021 PROTI ME W/INR INR 1.0 INR INDIC ATION S 2.0 - 3.0 PROPH YLAXI S: VENOU S THROM BOSIS (HIGH RISK SURGE RY) AND SYSTE JADEN EMBOL ISM (TISS UE HEART VALVE S, AMI VALVU LAR HEART DISEA SE AND ATRIA L FIBRI LLATI ON). TREAT MENT: VENOU S THROM BOSIS AND PULMO NARY EMBOL ISM BILEA FLET MECHA NICAL VALVE S IN AORTI C POSIT ION. 2.5 - 3.5 MECHA NICAL PROST HETIC HEART VALVE S (TILT ING DISK VALVE S AND BILEA FLET MECHA NICAL VALVE S IN ADRIANA L POSIT ION). PREVE NTION OF RECUR RENT MYOCA RDIAL INFAR CTION . ANTIP HOSPH OLIPI D SYNDR OME. Not Available [facility] ([facility]) [address] [place], [address], 07/23/2021 17:57:05 07/05/19 22 07/03/2021 imagi ng/di agnos tic resul t No observ ation record ed. [id number] Not Available 07/18/2022 00:42:47 07/05/19 22 07/02/2021 imagi ng/di agnos tic resul t No observ ation record ed. [id number] Not Available 07/18/2022 00:42:47 07/05/19 22 07/03/2021 imagi ng/di agnos tic resul t No observ ation record ed. [id number] Not Available 07/18/2022 00:42:47 07/25/19 22 07/24/2021 , francisca mac, limit ed [facility] [address] [place], [place] [id number] Patien t Name: AILEEN LIN JAZZ Access ion #: [id number] Sex: F : 1974 4 Locati on: RAD Attend ing Physic judson: KISHORE CATHERINE Orderwanda ng Physic judson: KISHORE CATHERINE Exam Date: 07/25/19 22 8:33 AM Exam Name: US BREAST LIMITE D RT Admitt ing Diagno sis(es ): RADIOL OGY REPORT - FINAL EXAM: US BREAST LIMITE D RT HISTOR Y: right breast prebio psy check 46-yea r-old female with right breast nodule . COMPAR TANJA: Mammog sheryl dated 2021, 2021, 2020; right breast ultras ound dated 2021 TECHNI QUE: Focuse d ultras ound evalua tion of the right outer breast was perfor med. FINDIN GS: There is a backgr ound parenc hymal patter n of fibroc ystic change . There is a solid nodule in the right outer breast 9 o'cloc k locati on 4 cm from the nipple measur ing up to 4.[address] dimens ion, circum scribe d margin s, wider than tall on all images , with echoge popeye notch consis tent with intram ammary lymph node. Size of this nodule is stable versus prior Page 1 of 2 [facility] Name: JAZZ MYLES ion #: [id number] Sex: F : 1974 4 Exam Date: 07/25/19 8:33 AM Exam Name: US BREAST LIMITE D RT Admitt ing Diagno sis(es ): ultras ound examin ation. IMPRES KIMBERLEY: BIRADS 3: Assess ment comple te. Probab ly benign findin gs. Short interv al follow -up sugges cierra. Recomm end short interv al follow -up right breast ultras ound in December 2021, which will be 6 months follow ing the ultras ound examin ation perfor med on 2021. I person ally discus sed these findin gs and recomm endati ons with the patien t immedi ately follow ing the examin ation. Create d and electr onical ly signed by: Mart brady MD Signed Date: 07/25/19 2:11 PM (CT) Dictat ed by: Mart brady MD (CT) (CT) Page 2 of 2 [id number] [facility] (Imaging) [address] [place], [address], 07/18/2022 00:42:47 07/25/19 22 07/24/2021 imagi ng/di jereos tic resul t No observ ation record ed. [id number] [facility] [address], [place], [address], 07/18/2022 00:42:47 12/24/19 23 12/19/2022 [facility] [address] [facility] [address], [place] [address] [phone] Patien t Name: JAZZ MYLES Access ion #: [id number] Sex: F : 1974 8 Locati on: RAD Attend ing Physic judson: JUICE SANON Orderi mono Physic judson: JUICE SANON Exam Date: 12/20/19 11:47 AM Exam Name: US ANKLE LT COMPLE TE Admitt ing Diagno sis(es ): RADIOL OGY REPORT - FINAL EXAM: US ANKLE LT COMPLE TE HISTOR Y: left ankle sprain 47-yea r-old female with left ankle sprain 1 month ago, pain latera lly. COMPAR TANJA: Radiog raphs of the foot and ankle dated 2022. TECHNI QUE: Ultras ound evalua tion of the left ankle was perfor med. FINDIN GS: Tendon s: The tibial is anteri or, extens or halluc is longus , perone us longus , and perone us brevis tendon s are intact . There is a small amount of fluid surrou nding the extens or digito rum longus tendon , which is otherw ise intact . The Achill es tendon demons trates normal morpho logy, thickn ess, and echoge nicity . Page 1 of 2 [facility] Patiheraclio t Name: JAZZ MYLES Access ion #: [id number] Sex: F : 1974 8 Exam Date: 12/20/19 11:47 AM Exam Name: US ANKLE LT COMPLE TE Admitt ing Diagno sis(es ): Ligame nts: The anteri or talofi bular ligame nt is mildly thicke gabo and hetero geneou s, and otherw ise intact . The calcan eofibu lar ligame nt is not visual ized sonogr aphica lly. The anteri or tibiof ibular ligame nt is intact . Joint effusi on is visual ized deep to the extens or digito rum longus tendon . IMPRES KIMBERLEY: 1. Chroni c partia l tear of the anteri or talofi bular ligame nt. The calcan eofibu lar ligame nt could not be visual ized sonogr aphica lly and may be chroni andree torn. 2. Mild tenosy noviti s of the extens or digito rum longus tendon . The perone al tendon s appear normal sonogr aphica lly. 3. Ankle effusi on visual ized. Create d and electr onical ly signed by: Mart brady MD Signed Date: 12/24/19 11:10 AM (CT) Dictat ed by: Mart brady MD (CT) (CT) Page 2 of 2 [email or web address] [facility] (Imaging) [address] [place], [address], 12/23/2022 14:43:19 Result Notes None recorded. Problems Name Problem SNOMED Code Status Onset Date Resolution Date Notes Provider Name and Address Organization Details Recorded Time Arthritis 2498948 Active 2022 Linda borrero, [employer] [facility] [employer] 3 08:50:05 Pain in left foot 8629886154448 07 Active 2022 Juice Rodriguez DPM [address] [address], [place], [address] , [facility] [employer] 3 09:10:04 Strain of peroneal tendon 711332757 Active 2022 Juice Rodriguez DPM [address] [address], [place], [address] , [facility] [employer] 3 09:10:22 Sprain of left ankle 7791012711271 9105 Active 2022 Juice Rodriguez DPM [address] [facility], [facility] [[email or web address] [address], [place], [address] , [facility] [employer] 3 09:10:48 Notes:VARICOSITIES Problem Notes None recorded. Procedures Surgical History Date Name Laterality Status Provider Name and Address Organization Details Recorded Time 05/06/2023 Joint Injection-P odiatry completed Juice Rodriguez DPM [address] [facility], [facility] [[email or web address] [address], [place], [address], [facility] [employer] [facility] 05/07/2023 10:00:13 Imaging Results Imaging Date Name Status LastModified by Organiz ation Details LastModified Time 07/03/2021 imaging/diag nostic result completed [id number] Information not available 07/18/2022 00:42:47 07/02/2021 imaging/diag nostic result completed [id number] Information not available 07/18/2022 00:42:47 07/03/2021 imaging/diag nostic result completed [id number] Information not available 07/18/2022 00:42:47 07/24/2021 US, breast, limited completed [id number] [facility] (Imaging) [address] [place], [address], 07/18/2022 00:42:47 07/24/2021 imaging/diag nostic result completed [id number] [facility] [address] [place], [address], 07/18/2022 00:42:47 12/19/2022 US, ankle completed [email or web address] [facility] (Imaging) [address] [place], [address], 12/23/2022 14:43:19 Procedure Notes None recorded. Medical Equipment None Reported. Allergies No known drug allergies Medications Name Sig Start Date Stop Date Status Note LastModified by Organization Details LastModified Time cyclobenzap rine 10 mg tablet TAKE 1 TABLET BY MOUTH EVERY DAY AT BEDTIME FOR 14 DAYS 12/03 completed Not Available Not Available Not Available prednisone 10 mg tablet 12/03 completed Not Available Not Available Not Available cetirizine 10 mg tablet TAKE 1 TABLET BY MOUTH EVERY DAY FOR 14 DAYS NEEDED 12/03 completed Not Available Not Available Not Available ibuprofen 800 mg tablet TAKE 1 TABLET BY MOUTH EVERY DAY WITH FOOD NEEDED FOR HEADACHE 12/03 completed Not Available Not Available Not Available hydrocodone 5 mg-acetamin ophen 325 mg tablet TAKE 1 TABLET BY MOUTH EVERY 6 HOURS NEEDED 12/03 completed Not Available Not Available Not Available meloxicam 15 mg tablet TAKE 1 TABLET BY MOUTH EVERY DAY WITH MEALS FOR 14 DAYS 12/03 completed Not Available Not Available Not Available sumatriptan 50 mg tablet TAKE 1 TABLET BY MOUTH EVERY DAY NEEDED 12/03 completed Not Available Not Available Not Available omeprazole 40 mg capsule,del ayed release TAKE 1 CAPSULE BY MOUTH EVERY DAY DIRECTED active Not Available Not Available No t Available ketorolac 10 mg tablet TAKE 1 TABLET BY MOUTH FOUR TIMES DAILY NEEDED FOR PAIN. active Not Available Not Available No t Available meloxicam 7.5 mg tablet TAKE 1 TABLET BY MOUTH EVERY DAY NEEDED 01/22 completed Not Available Not Available Not Available famotidine 20 mg tablet TAKE 1 TABLET BY MOUTH TWICE DAILY FOR 14 DAYS DIRECTED 12/03 completed Not Available Not Available Not Available erythromyci n 5 mg/gram (0.5 %) eye ointment 12/03 completed Not Available Not Available Not Available orphenadrin e citrate ER 100 mg tablet,exte nded release TAKE 1 TABLET BY MOUTH TWICE DAILY NEEDED FOR PAIN. 01/22 completed Not Available Not Available Not Available progesteron e micronized 200 mg capsule TAKE 1 CAPSULE BY MOUTH TWICE DAILY 12/03 completed Not Available Not Available Not Available diclofenac sodium 75 mg tablet,ludmila yed release TAKE 1 TABLET BY MOUTH TWICE DAILY active Not Available Not Available No t Available bisacodyl 5 mg tablet,ludmila yed release TAKE ALL 6 TABLETS AT 8AM ON 03/06. active Not Available Not Available No t Available ergocalcife rol (vitamin D2) 1,250 mcg (50,000 unit) capsule TAKE 1 CAPSULE BY MOUTH EVERY WEEK DIRECTED 12/03 completed Not Available Not Available Not Available methylpredn isolone 4 mg tablets in a dose pack FOLLOW PACKAGE DIRECTION S 12/03 completed Not Available Not Available Not Available albuterol sulfate HFA 90 mcg/actuati on aerosol inhaler INHALE 2 PUFFS BY MOUTH EVERY 4 HOURS NEEDED 12/03 completed Not Available Not Available Not Available ketoconazol e 2 % topical cream APPLY TOPICALLY TO THE AFFECTED AREA EVERY DAY FOR 6 WEEKS 12/03 completed Not Available Not Available Not Available naproxen 500 mg tablet TAKE 1 TABLET BY MOUTH TWICE DAILY WITH MEALS. 01/22 completed Not Available Not Available Not Available amoxicillin 875 mg-potassiu m clavulanate 125 mg tablet TAKE 1 TABLET BY MOUTH EVERY 12 HOURS FOR 7 DAYS DIRECTED 12/03 completed Not Available Not Available Not Available escitalopra m 10 mg tablet TAKE 1 TABLET BY MOUTH EVERY DAY 12/03 completed Not Available Not Available Not Available nitrofurant oin monohydrate /macrocryst als 100 mg capsule TAKE 1 CAPSULE BY MOUTH EVERY 12 HOURS FOR 5 DAYS DIRECTED 12/03 completed Not Available Not Available Not Available calcium 600 mg (as carbonate)- vitamin D3 10 mcg (400 unit) tablet TAKE 1 TABLET BY MOUTH TWICE DAILY 12/03 completed Not Available Not Available Not Available peg 3350-electr olytes 236 gram-22.74 gram-6.74 gram-5.86 gram solution MIX AND DRINK 1/2 OF IT AT 5PM ON 03/06 AND THE OTHER 1/2 AT 5AM ON 03/07. active Not Available Not Available No t Available FeroSul 325 mg (65 mg iron) tablet TAKE 1 TABLET BY MOUTH TWICE DAILY DIRECTED active Not Available Not Available No t Available Vitals Date Recorded Body mass index (BMI) Body height Heart rate Respiratory rate Body temperature Body weight Systolic blood pressure Diastolic blood pressure Provider Name and Address Organization Details Last Updated DateTime 2 28.1 kg/m2 167.64 cm 88 /min 14 /min 97.3 [degF] 50191.0 7 g 120 mm[Hg] 76 mm[Hg] Not Available [facility] [employer] 3 00:37:17 Date Recorded Body height Body mass index (BMI) Body weight Provider Name and Address Organization Details Last Updated DateTime 12/03/2022 167.64 cm 28.4 kg/m2 14464.26 g Linda Sterling [facility] [employer] [facility] 12/03/2022 08:47:20 Date Recorded Heart rate Respiratory rate Oxygen saturation Oxygen saturation in Arterial blood by Pulse oximetry Systolic blood pressure Diastolic blood pressure Provider Name and Address Organization Details Last Updated DateTime 3 76 /min 14 /min 99 % 99 % 112 mm[Hg] 75 mm[Hg] Ajit Kelley [facility] [employer] [facility] 3 08:54:17 Date Recorded Body height Body mass index (BMI) Body weight Body temperature Heart rate Respiratory rate Oxygen saturation Oxygen saturation in Arterial blood by Pulse oximetry Systolic blood pressure Diastolic blood pressure Provider Name and Address Organization Details Last Updated DateTime 3 167.64 cm 28.4 kg/m2 40940.2 6 g 97.3 [degF] 67 /min 14 /min 99 % 99 % 112 mm[Hg] 80 mm[Hg] So Aaron NE [employer] [facility] [employer] [facility] 3 17:22:58 Date Recorded Body height Body mass index (BMI) Body weight Heart rate Respiratory rate Oxygen saturation Oxygen saturation in Arterial blood by Pulse oximetry Systolic blood pressure Diastolic blood pressure Provider Name and Address Organization Details Last Updated DateTime 3 167.64 cm 28.4 kg/m2 57658.2 6 g 71 /min 14 /min 99 % 99 % 116 mm[Hg] 75 mm[Hg] Ajit Kelley [employer] [facility] [employer] [facility] 3 17:23:50 Date Recorded Body height Heart rate Respiratory rate Oxygen saturation Oxygen saturation in Arterial blood by Pulse oximetry Systolic blood pressure Diastolic blood pressure Provider Name and Address Organization Details Last Updated DateTime 3 167.64 cm 77 /min 14 /min 99 % 99 % 97 mm[Hg] 67 mm[Hg] Ajit Kelley [employer] [facility] [employer] [facility] 3 17:35:22 Social History Question Answer Notes LastModified by Organizat ion Details LastModified Time Tobacco Smoking Status Never Smoker Not Available [facility] 07/18/2022 00:35:06 What Is Your Level Of Alcohol Consumption? None Information not available 12/03/2022 Have You Recently Traveled Abroad? No [id number] Information not available 07/18/2022 Sex: Unknown Functional Status None recorded. Mental Status None recorded. Family History Relationship Description Onset Age of this Age Resolved Age Notes LastModified by Organization Details LastModified Time Father No current problems or disability [id number] Not available 07/18/2022 00:35:41 Mother No current problems or disability [id number] Not available 07/18/2022 00:35:41 Unspecified Relation Diabetes mellitus [employer] Not available 12/03/2022 08:52:37 Unspecified Relation Arthritis UNCLES [email or web address] Not available 023 08:52:50 Medical History Condition Response BLINDNESS N BLADDER PROBLEMS N KIDNEY STONES N MRSA N SLEEP APNEA N ALLERGIES/HAYFEVER N OTHER # 1 N LUNG DISEASE/DISORDER N HISTORY OF DRUG ABUSE N INSOMNIA N RADIATION / CHEMOTHERAPY N COPD N HIGH CHOLESTEROL / HYPERLIPIDEMIA N Other # 2 N EDEMA N CAROTID BLOCKAGE N SHINGLES N DEPRESSION (INCLUDING POST ) N BACK / NECK PROBLEMS N BOWEL PROBLEMS N HAVE YOU BEEN HOSPITALIZED OR SEEN IN [facility] IN THE PAST YEAR ? N MIGRAINES N STROKE/TIA N THYROID DISEASE N BENIGN PROSTATIC HYPERPLASIA N HYPOTENSION N PARAPELGIA N OBESITY N GERD/NAUSEA N HISTORY WITH COMPLICATIONS WITH ANESTHES IA ? N ANEURYSM N FIBROMYALGIA N OSTEOPOROSIS N URINARY/BLADDER/KIDNEY PROBLEMS N CORONARY ARTERY DISEASE (CAD) N Do you have Advance directive? N ARTHRITIS Y Do you have a healthcare POA? N USE OF BLOOD THINNERS N NO SIGNIFICANT PAST MEDICAL HISTORY N DIABETES, TYPE N HEARTBURN / REFLUX N Do you have a living will? N BLOOD CLOTS N ASTHMA N HEPATITIS / LIVER DISEASE N PULMONARY DISEASE N USE OF NSAIDS N GOUT N ALZHEIMER'S DISEASE N HERPES N DEMENTIA N HEADACHES/MIGRAINES N SEIZURES/EPILEPSY N CHF N VASCULAR DISEASE N PACEMAKER N Blood Disorder N DIZZINESS N HEART DISEASE/HEART PROBLEMS N NEUROPATHY N AIDS/HIV N KIDNEY DISEASE N CHEMOTHERAPY / RADIATION N LIVER DISEASE N MENTAL DISORDER/ILLNESS N HYPERTENSION N CARDIAC ARRHYTHMIA N CANCER: SPECIFY N TOURETTE'S N ANXIETY DISORDER N BLOOD TRANSFUSION N ANEMIA/BLOOD DISORDER N AUTOIMMUNE DISEASE N DEAF/HEARING IMPAIRED N TUBERCULOSIS N GLAUCOMA N Gynecological HistoryNo gynecological history recorded. Obstetrics History GPAL:G 0 P 0 0 0 0 Past Encounters Encounter ID Performer Location Encounter Start Date Encounter Closed Date Diagnosis/Indication Diagnosis SNOMED-CT Code Diagnosis ICD10 Code Diagnosis Note [id number] [facility] General Surgery [address] [place] [address] 07/12/2021 00:00:00 07/12/2021 12:11:49 [id number] Juice Rodriguez DPM [facility] Podiat[place] [address] [facility], [facility] [[email or web address] [address] [place] [address] 12/03/2022 08:44:35 12/03/2022 09:18:53 Sprain of left ankle 4673276942 9233555 S93.402A as above Strain of peroneal tendon 612121051 S86.312A rice therapyobt ain ultrasound for possible tear of tendonno strenuous activities Rx Cam bootfollow -up 1 month Pain in left foot 361678 8986 24709 M79.672 x-rays reviewed negativeco ntinue supportive shoe gearrice therapyfol low-up in 1 month [id number] Juice Rodriguez DPM [facility] Podiatry [place] [address] [facility], [facility] [[email or web address] [address] [place] [address] 01/23/2023 17:19:13 01/27/2023 14:28:52 Sprain of left ankle 7485230322 6578425 S93.402A as above Strain of peroneal tendon 792979435 S86.312A rice therapyRx physical therapyobt ain ultrasound for possible tear of tendonno strenuous activities Rx Cam boot- Continuefo llow-up after physical therapy [id number] Juice Rodriguez DPM [facility] Podiat[facility] [place] [address] [facility], [address] [address] 03/11/2023 17:21:13 03/12/2023 13:53:41 Strain of peroneal tendon 298528404 S86.312A rice therapyRx physical therapy finishobta in ultrasound for possible tear of tendonno strenuous activities Rx Cam boot- Continuefo llow-up after physical therapy Sprain of left ankle 566 9662332 5742744 S93.402A as above [id number] Juice Rodriguez DPM [facility] [place] [address] [facility], [address] [place] [address] 05/06/2023 17:33:35 05/07/2023 11:54:36 Strain of peroneal tendon 187363273 S86.312A ResolvedCo ntinue supportive shoe gear and stretching to prevent recurrence Sprain of left ankle 773 4683175 8576559 S93.402A ATFL painSteroi d injection todayRecom mend over-the-c ounter soft ankle brace with activities Follow-up in 1 month if continues to be problemati cMonitor for signs of infection at present seek medical attention immediatel y Health Concerns Section Related Observation LastModified by Organization Detai ls LastModified Time None Recorded Concern Status LastModified by Organization Details LastModified Time None Recorded Advance Directives Directive None Recorded Payers Encounter Date Sequence Insurance Name Policy Number Policy Fournier Covered Member ID Fournier Member ID Guarantor Name 12/03/2022 1 [facility] (MEDICAID REPLACEMENT - HMO) [id number] Jazz Price [id number] Jazz Albert 01/23/2023 1 [facility] (MEDICAID REPLACEMENT - HMO) [id number] Jazz Price [id number] Jazz Albert 03/11/2023 1 [facility] (MEDICAID REPLACEMENT - HMO) [id number] Jazz Price [id number] Jazz Albert 05/06/2023 1 [facility] (MEDICAID REPLACEMENT - HMO) [id number] Jazz Albert [id number] Jazz Francequez Notes Date Note Type Note Provider Name and Address Organization Details Recorded Time 12/03/2022 text/html . Patient is a 47-year-old female who presents to the office with complaints of left ankle pain. Patient states that 2 weeks ago she injured her left foot and ankle when she fell down stairs. Patient states the injury occurred on 08/17/2022. Patient states that she had bruising along the lateral aspect of her ankle and she has had some tenderness with weight-bearing. Patient denies any clicking or popping of the ankle with weight-bearing. Patient states she can comfortably walk 2-4 blocks. Patient states that her pain level is a 5/10 and constant nature. Patient has been taking anti-inflammatorie s which has helped as well as resting. Patient denies any other pedal complaints. X-rays at [facility] were negative for any acute fractures on . Juice Rodriguez DPM [address], [address], [place], [address], [employer] 12/03/2022 09:14:02 01/23/2023 text/html . Patient is a 47-year-old female who returns the office for follow-up on left ankle sprain and tendinitis. Patient states that she is doing better. Patient states she is still having some discomfort. Patient states the discomfort is mostly when she is walking standing. Patient was given a Cam boot which she does not present in today and is in normal shoe gear. Patient denies any other pedal complaints. Juice Rodriguez DPM [address], [place], [address], [employer] 01/27/2023 09:07:28 03/11/2023 text/html . Patient is a 47-year-old female who returns the office for follow-up on tendinitis of the left foot. Patient states she has been in physical therapy for few visits and states that she is overall 50% improved. Patient states she is no longer having any significant pain with weight-bearing. Patient states she will finish physical therapy. Patient was urged to continue no strenuous activities and wear supportive shoe gear. [address], [place], [address], [employer] 03/12/2023 12:01:01 05/06/2023 text/html . Patient is a 48-year-old female who returns the office after undergoing physical therapy. Patient states she is no longer have any pain along her peroneal tendon. Patient states that she only has mild tenderness at the ATFL area. Patient denies any ankle weakness with walking. Patient denies any other complaints. Juice Rodriguez DPM [address] [facility] [[email or web address] [address], [place], [address], [place] [facility] 05/07/2023 10:01:26 OBGyn Episode No OBEpisode recorded.
--- OUTSIDE RECORDS SUMMARY | 2024-07-27 13:19 | XMS_ITS | Clinical Summary ---
Author Organization [facility] Address [address] [place] [id number] Care Team Providers Care Substitute School Nurse Name Role Phone Rusty Garcia MD Unavailable Sherri Jane PA-C Primary Care Provider + Allergies No known active allergies Medications No known medications Active Problems Problem Noted Date Diagnosed Date Varicose veins of both lower extremities with pa in 01/30/2017 Social History Tobacco Use Types Packs/Day Years Used Date Smoking Tobacco: Never Smokeless Tobacco: Never Tobacco Cessation:Counseling Given: Not Answered Alcohol Use Standard Drinks/Week Comments No 0 (1 standard drink = 0.6 oz pur e alcohol) Comments No Sex and Gender Information Value Date Recorded Sex Assigned at Not on file Legal Sex Female 4:11 PM CDT Gender Identity Not on file Sexual Orientation Not on file Last Filed Vital Signs Vital Sign Reading Time Taken Comments Blood Pressure 121/61 04/13/2023 9:25 PM IMPORT MANAGER Pulse 70 04/13/2023 9:25 PM IMPORT MANAGER Temperature 36.3 C (97.4 F) 04/13/2023 9:25 PM IMPORT MANAGER Respiratory Rate 16 04/13/2023 9:25 PM IMPORT MANAGER Oxygen Saturation 98% 04/13/2023 9:25 PM IMPORT MANAGER Inhaled Oxygen Concentration - - Weight 79.8 kg (176 lb) 04/13/2023 9:25 PM IMPORT MANAGER Height 167.6 cm (5' 6 ) 04/13/2023 9:25 PM IMPORT MANAGER Body Mass Index 28.41 04/13/2023 9:25 PM IMPORT MANAGER Plan of Treatment Health Maintenance Due Date Last Done Comments Cervical Cancer Screening Pa p Smear (Age 30 to 64) Every 3 Years 1976 Colorectal Cancer Screening Colonoscopy (10 Years) 1976 Annual Physical 1979 Hepatitis C 1994 DTaP, Tdap and Td Vaccines ( 1 - Tdap) 1995 Hepatitis B Vaccines (1 of 3 - 19+ 3-dose series) 1995 Cervical Cancer Screening Pa p with HPV Testing (Age 30 to 64) Every 5 Years 2006 Cervical Cancer Screening with HPV 2006 Mammogram Screening 2016 COVID-19 Vaccine ( - 2023-2 5 season) 2024 Influenza Adult (#1) 2024 Meningococcal B Vaccine Aged Out No l onger eligible based on patient's age to complete this topic Meningococcal Vaccine Aged Out No hafsa sondra eligible based on patient's age to complete this topic Pneumococcal Vaccine: Pediat rics (0 to 5 Years) and At-Risk Patients (6 to 64 Years) Aged Out No longer eligible b ased on patient's age to complete this topic RSV Immunizations Under 20 Months Aged Out No longer eligible based on patient's age to complete this topic Insurance [employer] [facility] C/O PROVIDER SERVICES AILYN MARSH [id number] Care Teams Substitute School Nurse Relationship Specialty Start Date End Date Sherri Jane PA-C [address] [place] [phone] PCP - General PHYSICIAN TARPER 04/13/23 Rusty Garcia MD [address] [address] Referring Physician VASCULAR SURGERY 12/17/16
--- OUTSIDE RECORDS SUMMARY | 2024-07-27 13:20 | XMS_ITS | Referral Summary ---
Author Organization [facility] Address [address] [place] [address] Care Team Providers Care Seed Collector Name Role Phone Sherri Jane PA-C Primary Care Provider + Sherri Jane PA-C Unavailable [phone] Source Comments [facility],non-owned Affiliates and Associated Physician Practices is amultiple site organization consisting of ambulatory clinics and hospital sitesin [place], [place], [place] and [place]. This disclosure is being madepursuant to the Care Everywhere program and may not contain all information available regarding this patient. Last updated 18.[facility] Allergies No known active allergies Medications * Be aware that medications may not be up to date on this document. Alwaysverify current medications with the patient. Medication Sig Dispensed Refills Start Date End Date Status vitamin D, ergocalciferol, (DRISDOL) 1.25 MG (94433 UT) capsule Take 50,000 Units by mouth every 30 days Active Support HoseIndications:Stevenson s insufficiency Pharmacy to measure patient for correct size. Compression Pressure: 20-30mmHg knee high graduated(1 pair) 1 Each 6 12/01/2020 Active Active Problems Patient Care Coordination No te Formatting of this note migh t be different from the original. 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 09/11/2020 Symptomatic varicose veins of both lower extremi ties 01/30/2017 Advanced maternal age in multigravida 05/28/2016 Resolved Problems Problem Noted Date Diagnosed Date Resolved Date Encounter for anatomic survey 05/28/2016 10/27/2020 Elderly multigravida with an tepartum condition or complication 11/26/2013 10/27/2020 Social History Tobacco Use Types Packs/Day Years Used Date Smoking Tobacco: Never Smokeless Tobacco: Never Sex and Gender Information Value Date Recorded Sex Assigned at Not on file Gender Identity Not on file Sexual Orientation Not on file Last Filed Vital Signs Vital Sign Reading Time Taken Comments Blood Pressure 102/67 09/11/2020 2:04 PM CDT Pulse 80 09/11/2020 2:04 PM CDT Temperature 36.6 C (97.9 F) 09/11/2020 2:04 PM CDT Respiratory Rate 16 09/11/2020 2:04 PM CDT Oxygen Saturation - - Inhaled Oxygen Concentration - - Weight 78.5 kg (173 lb) 09/11/2020 2:04 PM CDT Height 167.6 cm (5' 6 ) 09/11/2020 2:04 PM CDT Body Mass Index 27.92 09/11/2020 2:04 PM CDT Plan of Treatment Not on file Care Teams Seed Collector Relationship Specialty Start Date End Date Sherri Jane PA-C [address] [place] [phone] PCP - General 11/28/20 Sherri Jane PA-C [address] [place] [phone] 11/28/20
--- OUTSIDE RECORDS SUMMARY | 2024-07-27 13:20 | XMS_ITS | Patient Health Summary ---
Author Organization [facility] Address [address] [place] [address] Care Team Providers Care Co Pilot Name Role Phone Sherri Jane PA-C Primary Care Provider + Sherri Jane PA-C Unavailable [phone] Note from [facility],non-owned Affiliates and Associated Physician Practices is amultiple site organization consisting of ambulatory clinics and hospital sitesin [place], [place], [place] and [place]. This disclosure is being madepursuant to the Care Everywhere program and may not contain all information available regarding this patient. Last updated 18.[facility] Allergies No known active allergies Medications * Be aware that medications may not be up to date on this document. Alwaysverify current medications with the patient. * vitamin D, ergocalciferol, (DRISDOL) 1.25 MG (76559 UT) capsule Take 50,000 Units by mouth every 30 days * Support Hose(Started 12/01/2020) Pharmacy to measure patient for correct size. Compression Pressure: 20-30mmHg knee high graduated(1pair) 6 refills by 12/01/2021 Active Problems Problem Noted Date Diagnosed Date Prediabetes 10/27/2020 [...] Mass Index 27.92 09/11/2020 2:04 PM CDT Procedures * VAS BILATERAL VENOUS REFLUX(Performed 11/27/2020) Performed for Symptomatic varicose veins of both lower extremities, Uninsured * SONOGRAM - COMPLETE(Performed 08/21/2016) * SONOGRAM - COMPLETE(Performed 07/09/2016) * SONOGRAM - COMPLETE(Performed 05/28/2016) * ANEUPLOIDY SCREENING(Performed 05/28/2016) * IMAGING/RADIOLOGY/XRAY RESULTS ORDER(Performed 09/14/2014) * SONOGRAM - COMPLETE(Performed 11/26/2013) Results * VAS BILATERAL VENOUS REFLUX (11/27/2020 1:44 PM CDT) Anatomical Region Laterality Modality Upper Extremity, Lower Extremity Intravascular Ultrasound 11/27/2020 1:18 PM CDT Narrative Procedure Note Faraz Santoyo MD - 11/28/2020 Eliza Morales Franck NINFA-AUTOMOBILE UPHOLSTERER VASCULAR LAB OR DERABLES * SONOGRAM - COMPLETE (08/21/2016 1:59 PM CDT) Only the most recent of4 resultswithin the time period is included. Anatomical Region Laterality Modality Other 08/21/2016 1:59 PM CDT Narrative 08/21/2016 11:18 PM CDT [facility] PHONE: FAX: Pat. Name: JAZZ RAGLAND. No: [id number] Study Date: 08/21/2016 1:59pm , Age: 13 1975, 41 Pregnancies: 5, Para 4 Height: 67 in Weight: 154 lb LMP: Unknown GA by 1st: 26w1d GA by US: 27w1d GA Selected: 26w1d (From First S) ALESIA: 11/26/2016 Referring MD: Gio Epps MD Political Consultant: Rachel Fitzpatrick RDMS/LANDON BMI: 24.12 Hist/Ind: Complete anatomic survey AMA History of macrosomia Low Risk NIPT MEASUREMENTS & AGE GROWTH EVALUATION Measurement GA Range Srce %for GA Ratios ----- ---- ------- BPD 6.7 cm 27w0d ([id number]) Hadl BPD 68% FL/BPD 0.78 (0.71 - 0.87) HC 24.9 cm 27w1d (84n2v-26q4k) Hadl HC 70% FL/AC 0.23 (0.20 - 0.24) AC 22.4 cm 26w6d (73v9x-72t6w) Hadl AC 63% HC/AC 1.11 (1.00 - 1.19) FL 5.2 cm 27w6d (39g1n-16i4s) Hadl FL 86% CI 0.76 (0.70 - 0.86) HL 4.6 cm 27w0d (99l3r-20e3r) Mikael HL 65% GA for sonogram 27w1d (43n5j-20z7w) Weight Estimate: based on (BPD,HC,AC,FL) Avg Weight: 1040 gm (888-1192) Hadloc : 2lbs, 4oz Normal: 933 gm (775-1092) Hadlock Wt% 77% for 26w1d Heart Rate: 138 bpm Amniotic Fluid Index: 17.0cm (09.7-22.3) Q1: 6.6cm Q2: 0.7cm Q3: 2.0cm Q4: 7.8cm CLINICAL SUMMARY Study Number: 2 A single fetus is identified in cephalic presentation. The measurements today are consistent with appropriate growth for the ALESIA provided. The ALESIA selected is based on a prior ultrasound examination. The amniotic fluid volume is within normal limits. The placenta is anterior. No major malformations are seen. The patient was advised that ultrasound does not allow detection of all structural or chromosomal abnormalities. IMPRESSION: Single live IUP at 26w1d Appropriate growth Normal AFV No malformations are seen within the limitations of ultrasound RECOMMEND: Follow up ultrasound as clinically indicated Thank you for allowing us the opportunity to care for your patient Chip Marino MD <Electronic Signature> 08/21/2016 11:18pm Alan Epps MD [facility] ORDERABLES * PANORAMA TEST (PO REF LAB) (05/28/2016) Comment Genetics normal female NIPT BLOOD SPECIMEN / Unknown Historical Provider LAB - CHEMISTRY O RDERABLES * IMAGING/RADIOLOGY/XRAY RESULTS ORDER (09/14/2014 10:03 PM CDT) Anatomical Region Laterality Modality Other Narrative 09/14/2014 10:03 PM CDT Ordered by an unspecified provider. Scanned Document IMAGING Care Teams Co Pilot Relationship Specialty Start Date End Date Sherri Jane PA-C [address] [place] [address] PCP - General 11/28/20 Sherri Jane PA-C [address] [place] [address] 11/28/20
--- OUTSIDE RECORDS SUMMARY | 2024-07-27 13:20 | XMS_ITS | Clinical Summary ---
Author Organization [facility] Address [address] [place] [address] Care Team Providers Care Supervisor Fertilizer Name Role Phone Sherri Jane PA-C Primary Care Provider + Sherri Jane PA-C Unavailable [phone] Source Comments [facility],non-owned Affiliates and Associated Physician Practices is amultiple site organization consisting of ambulatory clinics and hospital sitesin [place], [place], [place] and [place]. This disclosure is being madepursuant to the Care Everywhere program and may not contain all information available regarding this patient. Last updated 18.[facility] Allergies No known active allergies Medications * Be aware that medications may not be up to date on this document. Alwaysverify current medications with the patient. Medication Sig Dispensed Refills Start Date End Date Status vitamin D, ergocalciferol, (DRISDOL) 1.25 MG (71629 UT) capsule Take 50,000 Units by mouth every 30 days Active Support HoseIndications:Stevenson s insufficiency Pharmacy to measure patient for correct size. Compression Pressure: 20-30mmHg knee high graduated(1 pair) 1 Each 6 12/01/2020 Active Active Problems Patient Care Coordination No te Formatting of this note migh t be different from the original. [facility] 05/2016 Problem Noted Date Diagnosed Date Prediabetes [...] an tepartum condition or complication 11/26/2013 10/27/2020 Family History Medical History Relation Name Comments None Known Father None Known Mother Relation Name Status Comments Father Mother Social History Tobacco Use Types Packs/Day Years [...] 09/11/2020 2:04 PM CDT Plan of Treatment Health Maintenance Due Date Last Done Comments COLOGUARD (AGES 45-75) - COL ON CA SCREENING 1976 COLON MONITORING 1976 COLONOSCOPY - COLON CA SCREENING 1976 CT COLONOGRAPHY - COLON CA SCREENING 1976 Colorectal Cancer Screening 1976 FIT - COLON CA SCREENING 1976 FLEX SIG - COLON CA SCREENING 1976 LIPID TESTING 1976 MAMMOGRAM 1976 PAP SMEAR 1976 HIV SCREENING 1991 HEPATITIS C SCREENING 04/25/1994 DTAP/TDAP/TD VACCINES (1 - Tdap) 1995 HEPATITIS B VACCINE (1 of 3 - 19+ 3-dose series) 1995 SCREENING FOR DIABETES 09/11/2020 COVID-19 VACCINE (1 - 2023-2 5 season) 2024 INFLUENZA VACCINE (#1) 2024 DEPRESSION SCREENING 05/19/2024 ZOSTER VACCINE (1 of 2) 2026 HIB VACCINE Aged Out No longer eligi ble based on patient's age to complete this topic HPV VACCINE Aged Out No longer eligi ble based on patient's age to complete this topic MENINGOCOCCAL (Group B) VACCINE Aged Out No longer eligible based on patient's age to complete this topic MENINGOCOCCAL VACCINE Aged Out No hafsa sondra eligible based on patient's age to complete this topic PNEUMOCOCCAL VACCINE Aged Out No long er eligible based on patient's age to complete this topic Care Teams Supervisor Fertilizer Relationship Specialty Start Date End Date Sherri Jane PA-C [address] [place] [address] PCP - General 11/28/20 Sherri Jane PA-C [address] [place] [phone] 11/28/20
--- OUTSIDE RECORDS SUMMARY | 2024-07-27 13:20 | XMS_ITS | Data Portability ---
Author Organization [facility] MOYTereso Johnson Address [address] [place] [address] Care Team Providers Care Payroll Administrator Name Role Phone AJIT NIXON Primary Care Provider MAX EDWARDS Ball Assembler [phone] Assessment Encounter Date Assessment Date Assessment LastModified by Organization Details LastModified Time 05/31/2024 05/31/[address] Willett. Was told to follow up in seven years. I will get results. [email or web address] Not available 05/31/2024 17:49:33 Plan of Treatment Reminders Order Date Submit Date Provider Last Modified By Organization Details Last Modified Time Details Appointments ANY 30 2024 09:30A Norma Dexter MD Not available Not available Not available Lab lipid panel, serum 2024 025 [facility], [address] [place] [address], [address], [place], [address], 06/02/2024 06:20:14 influenza virus A + B + SARS-CoV- 2 (COVID19) Ag panel, rapid IA, upper respirato ry specimen 2023 024 [facility] In-Office Order, Internal Use Only DO Not Attach Compendium DO Not Attach Compendium, Do Not Delete/merge, [id number] 03/24/2024 18:50:15 EDUARDO (antinucl ear antibodie s) screen, ifa, serum 2023 024 [facility], [address] [facility], [address], [place], [address], 11/27/2023 19:08:56 ESR (erythroc yte sedimenta tion rate), blood 2023 024 [facility], [address] [facility] [address], [address], [place], [address], 11/27/2023 19:08:57 rf (rheumato id factor), serum 2023 024 [facility], [address] [facility] [address], [address], [place], [address], 11/27/2023 19:08:58 Referral physical therapist referral - [facility] 2024 025 [facility], [address] [place], [address], 07/12/2024 04:27:00 physical therapist referral - neck pain, pain radiating into scalp, evaluate and treat 2023 024 [facility], [address] [place], [address], 12/11/2023 09:06:05 Procedures None recorded. Surgeries None recorded. Imaging XR, thoracic spine 2023 024 [facility] (Radiology), [address] [place], [address], 02/24/2024 13:44:19 XR, ankle [address] [facility], [address] [place] [address] [place] [address], [address], 11/10/2023 20:39:57 XR, hand - Pain middle finger [address] [facility], [address] [place] [address] [address], [place], [address], 11/10/2023 20:39:38 US, pelvis, transabdo kim + transvagi nal - may do vaginally if necessary , follow up of left ovarian ultrasoun d 2023 024 [facility], [facility] [address], [place], [address], 07/06/2024 11:17:38 Medication Orders methocarb christine 500 mg tablet [address] [id number], [address], [place], [place], [id number], 05/31/2024 17:50:39 erythromy bri 5 mg/gram (0.5 %) eye ointment 2023 024 [id number], [address], [place], [place], [id number], 05/31/2024 19:20:13 tramadol 50 mg tablet 2023 025 [id number], [address], [place], [place], [id number], 05/31/2024 19:20:51 Naprosyn 500 mg tablet 2023 024 [facility] #[id number], [address], [place], [place], [id number], 05/31/2024 19:20:26 Patient TargetsNo targets recorded. Patient InstructionsNo instructions recorded. Reason for Referral Physical Therapist Referral for Headache neck pain, pain radiating into scalp, evaluate and treat Referring Physician: [facility], Encounter Date: 11/10/2023 Physical Therapist Referral for Chronic back pain greater than three months duration [facility] Referring Physician: Family Sobeida Lynch, Encounter Date: 05/31/2024 Results Created Date Observation Date Name Description Value Unit Range Abnormal Flag Note LastModifiedBy Organization Detail LastModifiedTime 10/15/19 24 10/16/2023 TSH RFX ON ABNOR MAL TO FREE T4 TSH 0.977 uIU/m L 0.450- 4.500 Not Available [facility] ([facility]) [address] [facility], [place], [address], 10/16/2023 13:12:46 11/26/19 24 11/27/2023 URINA LYSIS , ROUTI NE specific gravity 1.020 1.005- 1.030 Not Available [facility] ([facility]) [address] [facility], [place], [address], 11/27/2023 06:20:21 11/26/19 24 11/27/2023 URINA LYSIS , ROUTI NE pH 8.0 5.0-7. 5 above high normal Not Available [facility] ([facility]) [address] [place], [address], 11/27/2023 06:20:21 11/26/19 24 11/27/2023 URINA LYSIS , ROUTI NE urine-color YELLOW yellow Not Available [facility] ([facility]) [address] [place], [address], 11/27/2023 06:20:21 11/26/19 24 11/27/2023 URINA LYSIS , ROUTI NE appearance CLEAR clear Not Available [facility] ([facility]) [address] [place], [address], 11/27/2023 06:20:21 11/26/19 24 11/27/2023 URINA LYSIS , ROUTI NE WBC esterase NEGATI VE negati ve Not Available [facility] ([facility]) [address] [place], [address], 11/27/2023 06:20:21 11/26/19 24 11/27/2023 URINA LYSIS , ROUTI NE protein NEGATI VE negati ve/tra ce Not Available [facility] ([facility]) [address] [place], [address], 11/27/2023 06:20:21 11/26/19 24 11/27/2023 URINA LYSIS , ROUTI NE glucose NEGATI VE negati ve Not Available [facility] ([facility]) [address] [facility], [place], [address], 11/27/2023 06:20:21 11/26/19 24 11/27/2023 URINA LYSIS , ROUTI NE ketones NEGATI VE negati ve Not Available [facility] ([facility]) [address] [place], [address], 11/27/2023 06:20:21 11/26/19 24 11/27/2023 URINA LYSIS , ROUTI NE occult blood NEGATI VE negati ve Not Available [facility] ([facility]) [address] [place], [address], 11/27/2023 06:20:21 11/26/19 24 11/27/2023 URINA LYSIS , ROUTI NE bilirubin NEGATI VE negati ve Not Available [facility] ([facility]) [address] [place], [address], 11/27/2023 06:20:21 11/26/19 24 11/27/2023 URINA LYSIS , ROUTI NE urobilinogen ,semi-qn 0.2 mg/dL 0.2-1. 0 Not Available [facility] ([facility]) [address] [place], [address], 11/27/2023 06:20:21 11/26/19 24 11/27/2023 URINA LYSIS , ROUTI NE nitrite, urine NEGATI VE negati ve Not Available [facility] ([facility]) [address] [place], [address], 11/27/2023 06:20:21 11/26/19 24 11/27/2023 URINA LYSIS , ROUTI NE microscopic examination COMMEN T Micro scopi c not indic ated and not perfo rmed. Not Available [facility] ([facility]) [address] [facility], [place], [address], 11/27/2023 06:20:21 11/26/19 24 11/27/2023 EDUARDO BY IFA RFX TITER /SURAJ LISA EDUARDO by ifa rfx titer/patter n NEGATI VE Negat son <1:80 Borde rline 1:80 Posit son >1:80 ICAP nomen clatu re: AC-0 For more infor carlos n about Hep-2 cell patte rns use ANApa ttern s.org , the offic ial hillary te for the Inter natio nal Conse nsus on Antin uclea r Antib clark (EDUARDO) Patte rns ([facility] ). Not Available [facility] ([facility]) [address] [facility], [place], [address], 11/27/2023 19:08:56 11/26/19 24 11/27/2023 SEDIM ENTAT ION RATE- WESTE RGREN sedimentatio n rate-westerg nataly 6 mm/HR 0-32 Not Available [facility] ([facility]) [address] [facility], [place], [address], 11/27/2023 19:08:57 11/26/19 24 11/27/2023 RHEUM ATOID FACTO R (RF) rheumatoid factor (rf) <10.0 IU/mL <14.0 Not Available [facility] ([facility]) [address] [facility], [place], [address], 11/27/2023 19:08:58 11/26/19 24 11/28/2023 URINE CULTU REKAJAL urine culture, routine FINAL REPORT abnormal Not Available [facility] ([facility]) [address] [facility], [place], [address], 11/29/2023 06:22:30 11/26/19 24 11/28/2023 URINE CULTU RE, ROUTI NE result 1 KLEBSI GRAY PNEUMO NIAE abnormal 50,00 0-100 ,000 colon y formi ng units per mL Cefaz jaycee <=4 ug/mL Cefaz jaycee with an JADEN <=16 predi cts susce ptibi lity to the oral agent s cefac lyndsay, cefdi dianelys, cefpo doxim e, cefpr ozil, cefur oxime , cepha lexin , and lorac arbef when used for thera py of uncom plica cierra urina ry tract infec tions due to E. coli, Klebs iella pneum oniae , and Prote us mirab ilis. Not Available [facility] ([facility]) [address] [facility], [place], [address], 11/29/2023 06:22:30 11/26/19 24 11/28/2023 URINE CULTU RE, ROUTI NE antimicrobia l susceptibili ty COMMEN T S = Susce ptibl e; I = Inter media te; R = Resis tant P = Posit son; N = Negat son MICS are expre ssed in micro grams per mL Antib iotic RSLT# 1 RSLT# 2 RSLT# 3 RSLT# 4 Amoxi cilli n/Cla vulan ic Acid S Ampic illin R Cefep adelso S Ceftr iaxon e S Cefur oxime S Cipro floxa bri S Ertap enem S Genta micin S Imipe nem S Levof loxac in S Merop enem S Nitro furan toin S Piper acill in/Ta zobac erazo S Tetra cycli ne S Tobra mycin S Trime thopr im/Wyman lfa S Not Available [facility] ([facility]) [address] [facility], [place], [address], 11/29/2023 06:22:30 03/24/20 24 03/24/2024 influ shen virus A + B + SARS- CoV-2 (COVI D19) Ag panel , rapid IA, upper respi rator y speci men Flu A negati ve Not Available In-Office Order Internal Use Only DO Not Attach Compendium DO Not Attach Compendium, Do Not Delete/merge, [id number] 03/24/2024 17:07:53 03/24/20 24 03/24/2024 influ shen virus A + B + SARS- CoV-2 (COVI D19) Ag panel , rapid IA, upper respi rator y speci men Flu B negati ve Not Available In-Office Order Internal Use Only DO Not Attach Compendium DO Not Attach Compendium, Do Not Delete/merge, [id number] 03/24/2024 17:07:53 03/24/20 24 03/24/2024 influ shen virus A + B + SARS- CoV-2 (COVI D19) Ag panel , rapid IA, upper respi rator y speci men Rapid SARS CoV 2 Ag, QL IA, respiratory specimen negati ve Not Available In-Office Order Internal Use Only DO Not Attach Compendium DO Not Attach Compendium, Do Not Delete/merge, [id number] 03/24/2024 17:07:53 06/01/19 25 06/02/2024 LIPID PANEL cholesterol, total 158 mg/dL 100-19 9 Not Available [facility] ([facility]) [address] [facility], [place], [address], 06/02/2024 06:20:14 06/01/19 25 06/02/2024 LIPID PANEL triglyceride s 56 mg/dL 0-149 Not Available [facility] ([facility]) [address] [facility], [place], [address], 06/02/2024 06:20:14 06/01/19 25 06/02/2024 LIPID PANEL HDL cholesterol 60 mg/dL >39 Not Available [facility] ([facility]) [address] [place], [address], 06/02/2024 06:20:14 06/01/19 25 06/02/2024 LIPID PANEL VLDL cholesterol christos 11 mg/dL 5-40 Not Available [facility] ([facility]) [address] [facility], [place], [address], 06/02/2024 06:20:14 06/01/19 25 06/02/2024 LIPID PANEL LDL chol calc ([facility]) 87 mg/dL 0-99 Not Available [facility] ([facility]) [address], [place], [address], 06/02/2024 06:20:14 11/07/19 24 11/07/2023 US, pelvi s, compl ete No observ ation record ed. [facility] [address] [place], [address], 12/18/2023 10:31:16 11/07/19 24 11/07/2023 XR, lumbo sacra l spine No observ ation record ed. [facility] [address], [place], [address], 12/01/2023 14:24:45 11/10/19 24 11/10/2023 XR, hand No observ ation record ed. [facility] [address] [place], [address], 12/01/2023 14:24:22 11/10/19 24 11/10/2023 XR, ankle No observ ation record ed. [facility] [address] [place], [address], 01/23/2024 13:32:21 01/21/20 24 01/21/2024 CT, cervi christos spine , w/o contr ast No observ ation record ed. [facility] [address] [place], [address], 01/21/2024 14:45:16 01/21/20 24 01/21/2024 CT, cervi christos spine , w/o contr ast No observ ation record ed. [facility] [address] [place], [address], 01/21/2024 14:44:55 02/24/20 24 02/24/2024 XR, thora cic spine No observ ation record ed. [facility] [address], [place], [address], 03/10/2024 12:49:31 Result Notes None recorded. 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 Not Available [facility] 3 05:57:49 Helicoba cter pylori gastroin testinal tract infectio n 289359684 Active 2019 Not Available [facility] 3 05:57:48 Microcyt ic anemia 449661583 Completed 201901/27/2020 AILYN CASTANON Attn: Accounting ,[address] [place], [address] , [facility] - [facility] 0 12:32:33 Iron deficien cy anemia 48973460 Active 2019 Not Available [facility] 3 05:57:49 SARS-CoV -2 Active 2020 + 04/2020 Not Available [facility] 3 05:57:49 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 2020 Thoracic and lumbar spine Not Available [facility] 3 05:57:49 Vitamin D deficien cy 30145640 Active 2020 Not Available [facility] 3 05:57:48 Abnormal progeste meghna 630969613 Active 2020 Not Available [facility] 3 05:57:48 Advanced maternal age 004343489 Active 2020 Not Available [facility] 3 05:57:49 Pregnanc y 99240745 Completed 202011/03/2020 Alan Epps [place] [facility] 1 11:50:33 Advanced maternal age 362104880 Completed 2020 Deanna PrestonOSEI [place] [facility] 3 09:54:13 Abnormal progeste meghna 406072845 Completed 2020 Deanna Preston [place] [facility] 3 09:54:13 SARS-CoV -2 Completed 2020 + 04/2020 Deanna PrestonOSEI [place] [facility] 3 09:54:12 Prediabe ruben 650639444 Completed 2019 [place] [facility] 3 09:54:12 HPV - Human papillom avirus test positive Completed Deanna Mohan OSEI [place] - [facility] 3 09:54:12 Iron deficien cy anemia 14146655 Completed 2019 Deanna [place]OSEI [place] [facility] 3 09:54:13 Helicoba cter pylori gastroin testinal tract infectio n 204184679 Completed 2019 Deanna PrestonOSEI [place] [facility] 3 09:54:12 Degenera tion of interver tebral disc 01394626 Completed 2020 Thoracic and lumbar spine Deanna PrestonOSEI [place] [facility] 3 09:54:13 Past pregnanc y history of miscarri age 499311632 Completed 2020 Deanna PrestonOSEI [place] [facility] 3 09:54:13 Past pregnanc y history of miscarri age 551590018 Active 2020 Not Available [facility] 3 05:57:48 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 short interval f/u R breast US 12/2021 Not Available [facility] 3 05:57:48 Acquired pes planus 369447638 Active 2022 Not Available [facility] 3 05:57:48 Fibrocys tic disease of breast 48237132 Active Not Available [facility] 3 05:57:48 Pregnanc y 62631073 Completed 201501/07/2017 Alan ArnoldSupriya [place] [facility] 1 11:50:33 Advanced maternal age 066952389 Completed Deanna Preston [place] [facility] 7 13:13:06 Abnormal cervical Papanico laou smear 674193939 Completed Deanna [place] [facility] 7 13:13:06 HPV - Human papillom avirus test positive Completed Deanna Preston [place] [facility] 7 13:13:06 Advanced maternal age 899789337 Completed 07/11/2020 Alan ArnoldSupriya [place] [facility] 1 13:15:40 HPV - Human papillom avirus test positive Active Not Available [facility] 3 05:57:48 Varicose veins of lower extremit y 24784698 Active 2016 Not Available [facility] 3 05:57:49 Problem Notes None recorded. Procedures Surgical History Date Name Laterality Status Provider Name and Address Organization Details Recorded Time 04/21/20 23 Right Arthrocentesis Major Joint completed Rusty Aguilera MD [address] [facility], [place], [address], [place] - [facility] 04/21/2023 15:29:50 06/18/19 23 Date of Last Pap Smear completed Deanna Preston MA [place] - [facility] 06/17/2022 13:01:16 07/03/19 22 Date of Last Mammogram completed Deanna Preston MA [place] - [facility] 06/17/2022 13:01:11 11/08/19 18 Cryosurgery Warts/Skin Tags completed PRETTY EMERSON Attn: Accounting,[address] [facility], [place], [address], [place] - [facility] 11/07/2017 14:26:10 03/04/20 17 IUD Removal completed Alan Epps [facility] 03/04/2017 15:25:11 01/08/20 17 IUD Insertion completed Alan [facility] 01/07/2017 13:54:55 Imaging Results Imaging Date Name Status LastModified by Organiz ation Details LastModified Time 11/07/2023 US, pelvis, complete completed [facility] [address] [place], [address], 12/18/2023 10:31:16 11/07/2023 XR, lumbosacral spine completed [facility] [address], [place], [address], 12/01/2023 14:24:45 11/10/2023 XR, hand completed [facility] [address] [place], [address], 12/01/2023 14:24:22 11/10/2023 XR, ankle completed [facility] [address] [place], [address], 01/23/2024 13:32:21 01/21/2024 CT, cervical spine, w/o contrast completed [facility] [address] [place], [address], 01/21/2024 14:45:16 01/21/2024 CT, cervical spine, w/o contrast completed [facility] [address] [place], [address], 01/21/2024 14:44:55 02/24/2024 XR, thoracic spine completed [facility] [address] [place], [address], 03/10/2024 12:49:31 Procedure Notes None recorded. Medical Equipment None Reported. Allergies No known drug allergies Medications Name Sig Start Date Stop Date Status Note LastModified by Organization Details LastModified Time multivita min tablet Take 1 tablet every day by oral route. 08/03 completed Not Available Not Available Not Available cyclobenz aprine 10 mg tablet Take 1 tablet every day by oral route at bedtime for 14 days. 09/27 completed Not Available Not Available Not Available methocarb christine 500 mg tablet TAKE 1 TABLET BY MOUTH AT BEDTIME NEEDED active Not Available Not Available No t Available metformin 500 mg tablet Take 1 tablet every day by oral route. 11/04 completed Not Available Not Available Not Available bupropion HCl SR 150 mg tablet,12 hr sustained -release TAKE ONE TABLET BY MOUTH TWICE DAILY 07/24 completed Not Available Not Available Not Available prednison e 10 mg tablet Take 4 tablets by mouth x 3 days, take 3 tablets by x 3 days, take 2 tablets by mouth x 3 days, take 1 tablet by mouth x 3 days 03/05 completed Not Available Not Available Not Available diphenhyd ramine 50 mg capsule Take 1 capsule every day by oral route at bedtime. 02/06 completed Not Available Not Available Not Available evening primrose oil 500 mg capsule active Not Available Not Available Not Available Prenatabs Rx 29 mg iron-1 mg tablet TAKE ONE TABLET BY MOUTH ONCE DAILY 02/06 completed Not Available Not Available Not Available cetirizin e 10 mg tablet TAKE 1 TABLET BY MOUTH EVERY DAY FOR 14 DAYS NEEDED 03/06 completed Not Available Not Available Not Available ibuprofen 800 mg tablet TAKE 1 TABLET BY MOUTH EVERY DAY WITH FOOD NEEDED FOR HEADACHE 06/04 completed Not Available Not Available Not Available ofloxacin 0.3 % eye drops 05/31 completed Not Available Not Available Not Available fluconazo le 150 mg tablet TAKE 1 TABLET BY MOUTH EVERY 72 HOURS FOR 6 DAYS DIRECTED 05/24 completed Not Available Not Available Not Available clarithro mycin 500 mg tablet Take 1 tablet every 12 hours by oral route as directed for 14 days. 03/09 completed Not Available Not Available Not Available hydrocodo ne 5 mg-acetam inophen 325 mg tablet TAKE 1 TABLET BY MOUTH EVERY 6 HOURS NEEDED 11/23 completed Not Available Not Available Not Available Celestone Soluspan 6 mg/mL suspensio n for injection Take 3 mL by injectio n route. 05/31 completed Not Available Not Available Not Available meloxicam 15 mg tablet TAKE 1 TABLET BY MOUTH EVERY DAY WITH MEALS FOR 14 DAYS 06/07 completed Not Available Not Available Not Available Prometriu m 100 mg capsule Take 1 capsule twice a day by oral route. 07/24 completed Not Available Not Available Not Available Anucort-H C 25 mg supposito ry UNWRAP AND INSERT 1 SUPPOSIT ORY RECTALLY TWICE DAILY FOR 7 DAYS NEEDED 05/31 completed Not Available Not Available Not Available sumatript an 50 mg tablet TAKE 1 TABLET BY MOUTH EVERY DAY NEEDED 10/25 completed Not Available Not Available Not Available Lucie Low Dose Aspirin 81 mg tablet,de layed release Take 1 tablet twice a day by oral route. 11/23 completed Not Available Not Available Not Available Loprox (as olamine) 0.77 % topical cream APPLY TO THE AFFECTED AND SURROUND ING AREAS OF SKIN BY TOPICAL ROUTE 2 TIMES PER DAY IN THE MORNING AND EVENING 09/15 completed Not Available Not Available Not Available ciproflox acin 500 mg tablet TK 1 T PO Q 12 H FOR 7 DAYS UTD 05/24 completed Not Available Not Available Not Available omeprazol e 40 mg capsule,d elayed release TAKE 1 CAPSULE BY MOUTH EVERY DAY DIRECTED 08/11 completed Not Available Not Available Not Available tramadol 50 mg tablet TAKE 1 TABLET BY MOUTH THREE TIMES DAILY NEEDED FOR PAIN 05/31 completed Not Available Not Available Not Available acetamino phen 500 mg tablet TAKE 2 TABLET BY MOUTH EVERY 6 HOURS NEEDED FOR PAIN 05/31 completed Not Available Not Available Not Available zolmitrip su 5 mg tablet Take 1 tablet by oral route as needed. 08/03 completed Not Available Not Available Not Available amoxicill in 500 mg tablet Take 2 tablets twice a day by oral route as directed for 14 days. 03/09 completed Not Available Not Available Not Available ketorolac 10 mg tablet TAKE 1 TABLET BY MOUTH FOUR TIMES DAILY NEEDED FOR PAIN. 08/11 completed Not Available Not Available Not Available Vitamin tablet Take 1 tablet every day by oral route as directed for 90 days. 11/23 completed Not Available Not Available Not Available ciclopiro x 8 % topical solution APPLY TO THE AFFECTED AREA(S) BY TOPICAL ROUTE ONCE DAILY PREFERAB LY AT BEDTIME OR 8 HOURS BEFORE WASHING 03/18 completed Not Available Not Available Not Available meloxicam 7.5 mg tablet TAKE 1 TABLET BY MOUTH EVERY DAY NEEDED active Not Available Not Available No t Available oxycodone -acetamin ophen 5 mg-325 mg tablet 02/06 completed Not Available Not Available Not Available famotidin e 20 mg tablet TAKE 1 TABLET BY MOUTH DAILY 05/31 completed Not Available Not Available Not Available dicyclomi ne 20 mg tablet TAKE 1 TABLET BY MOUTH THREE TIMES DAILY 05/31 completed Not Available Not Available Not Available cephalexi n 500 mg capsule TAKE 1 CAPSULE BY MOUTH FOUR TIMES DAILY 03/24 completed Not Available Not Available Not Available erythromy bri 5 mg/gram (0.5 %) eye ointment apply ribbon of ointment to lower lid three times a day for one week and gently massage 05/31 completed Not Available Not Available Not Available cyanocoba elie (vit B-12) 1,000 mcg/mL injection solution Inject 1 mL every month by subcutan eous route. 11/23 completed Not Available Not Available Not Available nitrofura ntoin macrocrys tyler 100 mg capsule TAKE 1 CAPSULE BY MOUTH TWICE DAILY 02/23 completed Not Available Not Available Not Available nystatin 100,000 unit/gram topical cream APPLY EXTERNAL LY TO THE AFFECTED AREA TWICE DAILY FOR 7 DAYS 05/24 completed Not Available Not Available Not Available misoprost ol 200 mcg tablet Take 4 tablets by oral route. 11/23 completed Not Available Not Available Not Available ibuprofen 400 mg tablet Take 1 tablet every 4-6 hours by oral route. 09/15 completed for headache s with food Not Available Not Available Not Available orphenadr ine citrate ER 100 mg tablet,ex tended release TAKE 1 TABLET BY MOUTH TWICE DAILY NEEDED FOR PAIN. 12/03 completed Not Available Not Available Not Available progester one micronize d 200 mg capsule Take 1 capsule twice a day by oral route. 11/02 completed Not Available Not Available Not Available docusate sodium 100 mg capsule TAKE 1 CAPSULE BY MOUTH TWICE DAILY NEEDED 05/31 completed Not Available Not Available Not Available omeprazol e 20 mg capsule,d elayed release Take 1 capsule twice a day by oral route as directed for 14 days. 03/10 completed Not Available Not Available Not Available diclofena c sodium 75 mg tablet,de layed release TAKE 1 TABLET BY MOUTH TWICE DAILY 10/14 completed Not Available Not Available Not Available folic acid 1 mg tablet Take 2 tablets twice a day by oral route as directed . 06/07 completed Not Available Not Available Not Available bisacodyl 5 mg tablet,de layed release TAKE 6 TABLETS BY MOUTH AT 8 AM ON 01/26 completed Not Available Not Available Not Available ergocalci ferol (vitamin D2) 1,250 mcg (50,000 unit) capsule TAKE 1 CAPSULE BY MOUTH EVERY WEEK DIRECTED 03/26 completed Not Available Not Available Not Available Imitrex 100 mg tablet Take 1 tablet by oral route as needed. 08/03 completed Not Available Not Available Not Available hydrocort isone 0.5 % topical ointment APPLY A THIN LAYER TO THE AFFECTED AREA(S) BY TOPICAL ROUTE 2 TIMES PER DAY 10/01 completed Not Available Not Available Not Available ibuprofen 600 mg tablet TAKE 1 TABLET BY MOUTH EVERY 8 HOURS FOR 7 DAYS NEEDED FOR PAIN 05/31 completed Not Available Not Available Not Available methylpre dnisolone 4 mg tablets in a dose pack FOLLOW PACKAGE DIRECTIO NS 02/16 completed Not Available Not Available Not Available albuterol sulfate HFA 90 mcg/actua tion aerosol inhaler INHALE 2 PUFFS BY MOUTH EVERY 4 HOURS NEEDED 10/25 completed Not Available Not Available Not Available ketoconaz ole 2 % topical cream APPLY TOPICALL Y TO THE AFFECTED AREA EVERY DAY FOR 6 WEEKS 08/11 completed Not Available Not Available Not Available ondansetr on 4 mg disintegr ating tablet DISSOLVE 1 TABLET ON THE TONGUE EVERY 8 HOURS FOR 7 DAYS NEEDED FOR NAUSEA OR VOMITING 05/31 completed Not Available Not Available Not Available clotrimaz ole 1 % topical cream APPLY TO THE AFFECTED AREA ON HEEL TWICE DAILY 05/31 completed Not Available Not Available Not Available ParaGard T 380A 380 square mm intrauter ine device Take 1 device by intraute rine route. 09/15 completed Not Available Not Available Not Available naproxen 500 mg tablet TAKE 1 TABLET BY MOUTH TWICE DAILY WITH FOOD 05/31 completed Not Available Not Available Not Available amoxicill in 875 mg-potass ium clavulana te 125 mg tablet TAKE 1 TABLET BY MOUTH EVERY 12 HOURS FOR 7 DAYS DIRECTED 03/05 completed Not Available Not Available Not Available Bactrim DS 800 mg-160 mg tablet Take 1 tablet every 12 hours by oral route as directed for 7 days. 04/21 completed Not Available Not Available Not Available escitalop imelda 10 mg tablet TAKE 1 TABLET BY MOUTH EVERY DAY 06/07 completed Not Available Not Available Not Available cyclobenz aprine 5 mg tablet TAKE 1 TO 2 TABLETS BY MOUTH AT BEDTIME FOR 10 DAYS 05/31 completed Not Available Not Available Not Available OraMagicR x mouthwash Take 15 mL as needed by mucous route. 10/01 completed Not Available Not Available Not Available nitrofura ntoin monohydra te/macroc rystals 100 mg capsule TAKE 1 CAPSULE BY MOUTH EVERY 12 HOURS FOR 5 DAYS DIRECTED 03/26 completed Not Available Not Available Not Available 07/24 completed Not Available Not Available Not Available Seasoniqu e 0.15 mg-30 mcg (84)/10 mcg(7) tablets,3 month dose pack Take 1 tablet every day by oral route. 09/15 completed Not Available Not Available Not Available calcium 600 mg (as carbonate )-vitamin D3 10 mcg (400 unit) tablet TAKE 1 TABLET BY MOUTH TWICE DAILY 05/31 completed Not Available Not Available Not Available [place] Oil 1,000 mg capsule Take 1 capsule every day by oral route at bedtime for 90 days. 05/31 completed Not Available Not Available Not Available peg 3350-elec trolytes 236 gram-22.7 4 gram-6.74 gram-5.86 gram solution MIX AND DRINK 1/2 OF IT AT 5PM ON 03/06 AND THE OTHER 1/2 AT 5AM ON 03/07. 05/31 completed Not Available Not Available Not Available FeroSul 325 mg (65 mg iron) tablet TAKE 1 TABLET BY MOUTH TWICE DAILY DIRECTED 05/31 completed Not Available Not Available Not Available Calcium with Vitamin D3 600 mg (carbonat e)-10 mcg (400 unit) capsule Take 1 capsule twice a day by oral route. 11/23 completed Not Available Not Available Not Available vitamin E (dl, acetate) 180 mg (400 unit) capsule Take 1 capsule twice a day by oral route as directed for 90 days. 05/31 completed Not Available Not Available Not Available cholecalc iferol (vitamin D3) 10 mcg/mL (400 unit/mL) oral drops 02/06 completed Not Available Not Available Not Available Gavilyte- C 240 gram-22.7 2 gram-6.72 gram-5.84 gram oral solution MIX AND DRINK 1/2 BY MOUTH AT 5 PM AND DRINK OTHER 1/2 AT 5 AM 05/31 completed Not Available Not Available Not Available Viibryd 20 mg tablet Take 1 tablet every day by oral route. 02/07/ 2017 03/08 /2017 completed Not Available Not Available Not Available calcium 600 mg (as carbonate )-vitamin D3 20 mcg (800 unit) tablet Take 1 tablet twice a day by oral route for 30 days. 02/06 completed Not Available Not Available Not Available Classic 28 mg iron-800 mcg tablet 02/06 completed Not Available Not Available Not Available Flonase Allergy Relief 50 mcg/actua tion nasal spray,fredi pension [place] 1 spray every day by intranas al route as directed for 7 days. 10/25 completed Not Available Not Available Not Available Vol-Plus 27 mg iron-1 mg tablet 03/18 completed Not Available Not Available Not Available Vitals Date Recorded Body height Body mass index (BMI) Body weight Oxygen saturation Oxygen saturation in Arterial blood by Pulse oximetry Heart rate Body temperature Systolic blood pressure Diastolic blood pressure Provider Name and Address Organization Details Last Updated DateTime 4 167.64 cm 29.4 kg/m2 80375.8 1 g 98 % 98 % 79 /min 93.8 [degF] 104 mm[Hg] 64 mm[Hg] Amanda Nieves [facility] 4 14:33:58 Date Recorded Body height Body mass index (BMI) Body weight Oxygen saturation Oxygen saturation in Arterial blood by Pulse oximetry Heart rate Systolic blood pressure Diastolic blood pressure Provider Name and Address Organization Details Last Updated DateTime 4 167.64 cm 29.4 kg/m2 49422.8 1 g 99 % 99 % 75 /min 120 mm[Hg] 78 mm[Hg] Khushboo Suarez MA [facility] - [facility] 4 12:01:21 Date Recorded Body height Body mass index (BMI) Body weight Oxygen saturation Oxygen saturation in Arterial blood by Pulse oximetry Heart rate Systolic blood pressure Diastolic blood pressure Provider Name and Address Organization Details Last Updated DateTime 4 167.64 cm 29.1 kg/m2 37600.6 3 g 100 % 100 % 71 /min 118 mm[Hg] 70 mm[Hg] Khushboo Suarez MA [place] - [facility] 4 16:28:49 Date Recorded Body height Body mass index (BMI) Body weight Oxygen saturation Oxygen saturation in Arterial blood by Pulse oximetry Heart rate Systolic blood pressure Diastolic blood pressure Provider Name and Address Organization Details Last Updated DateTime 4 167.64 cm 29.2 kg/m2 34154.2 2 g 98 % 98 % 73 /min 120 mm[Hg] 70 mm[Hg] Khushboo Suarez MA [facility] 4 09:30:01 Date Recorded Body height Body mass index (BMI) Body weight Oxygen saturation Oxygen saturation in Arterial blood by Pulse oximetry Heart rate Systolic blood pressure Diastolic blood pressure Provider Name and Address Organization Details Last Updated DateTime 5 167.64 cm 28.6 kg/m2 45060.8 5 g 98 % 98 % 73 /min 118 mm[Hg] 70 mm[Hg] Khushboo Suarez MA [facility] 5 16:57:38 Social History Question Answer Notes LastModified by Organizat ion Details LastModified Time Tobacco Smoking Status Never Smoker Deanna Preston MA null, [facility] 04/11/2014 15:13:11 Do You Have An Advance Directive? Yes Information not available 02/19/2016 What Is Your Level Of Alcohol Consumption? None Information not available 02/19/2016 If You Are , What Was Your Level Of Alcohol Consumption Prior To ? None [email or web address] Information not available 04/16/2016 Is Anesthesia Consult Planned? No [email or web address] Information not available 04/16/2016 Plan No [email or web address] Information no t available 04/16/2016 Is Blood Transfusion Acceptable In An Emergency? Yes Information not available 02/19/2016 What Is Your Level Of Caffeine Consumption? Moderate Information not available 02/19/2016 Live With Cats/exposure To Cat Litter No [email or web address] Information not available 04/16/2016 How Much Tobacco Do You Chew? None Information not available 02/19/2016 In The 14 Days Before Symptom Onset, Have You Had Close Contact With A Laboratory-confir med COVID-19 While That Case Was Ill? No Information not available 03/26/2021 In The 14 Days Before Symptom Onset, Have You Had Close Contact With A Person Who Is Under Investigation For COVID-19 While That Person Was Ill? No Information not available 03/26/2021 Have You Been To An Area Known To Be High Risk For COVID-19? No Information not available 03/26/2021 Are You Currently Employed? Yes Information not available 02/19/2016 What Type Of Diet Are You Following? REGULAR Information not available 02/19/2016 Do You Or Have You Ever Used E-cigarettes Or Vape? Never Used Electronic Cigarettes Information not available 06/15/2019 Education 12 GED [email or web address] Information no t available 02/06/2017 What Is The Highest Grade Or Level Of School You Have Completed Or The Highest Degree You Have Received? 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 No [email or web address] Information no t available 04/16/2016 Frequent Air Travel No [email or web address] Information not available 04/16/2016 Live Alone Or With Others? With Others Information not available 02/19/2016 Marital Status Single [email or web address] Informatio n not available 04/16/2016 What Was The Date Of Your Most Recent Tobacco Screening? 05/31/2024 Information not available 05/31/2024 How Many Children Do You Have? 5 Information not available 02/06/2017 Are There Any Occupational Health Risks Where You Work? None Information not available 04/16/2016 Performs Monthly Self-breast Exam? Yes Information no t available 02/19/2016 Do You Have Any Pets? No Information not available 09/26/2020 Do You Use Protection During Sex? Always Information not available 02/19/2016 What Is Your Relationship Status? Information not available 02/19/2016 Do You Use Your Seat Belt Or Car Seat Routinely? Yes Information not available 09/26/2020 Seat Belts Used Routinely Yes Information not available 02/19/2016 Are You Sexually Active? No Information not available 02/19/2016 Do You Have Smoke And Carbon Monoxide Detectors In Your Home? Yes [email or web address] Information not available 04/16/2016 Are You Passively Exposed To Smoke? No [email or web address] Information no t available 04/16/2016 Do You Or Have You Ever Used Smokeless Tobacco? Never Used Smokeless Tobacco Information not available 06/15/2019 How Much Tobacco Do You Smoke? No Information not available 02/19/2016 Smoking Pre- No [email or web address] Information not available 04/16/2016 General Stress Level Medium Information not available 02/19/2016 Do You Use Any Illicit Or Recreational Drugs? No Information not available 09/26/2020 Do You Use Sunscreen Routinely? Yes Information not available 02/19/2016 Supplements None [email or web address] Information n ot available 04/16/2016 Has Tobacco Cessation Counseling Been Provided? Yes [email or web address] Information not available 2023 On What Date Was Tobacco Cessation Counseling Provided? 05/31/2024 Information not available 05/31/2024 How Many Years Have You Smoked Tobacco? 0 Information not available 02/19/2016 Do You Or Have You Ever Used Any Other Forms Of Tobacco Or Nicotine? No Information not available 01/29/2022 Sex: Female Functional Status Question Answer Note LastModified by Organization D etails LastModified Time What is your exercise level? Moderate Information not available 02/19/2016 Mental Status None recorded. Family History Nothing Reported. Medical History Condition Response Heart Problems N Other N Breast Cancer N Thyroid Problems N Kidney or Bladder Problems N GI Problems N Lung Disease N Depression N Acne N Breast Problem N Eating Disorder N Anemia N Anesthesia Complications N Headaches/Migraines Y Anxiety Disorder N Diabetes N Ovarian Cancer N Blood Transfusions N Arthritis N Polyps N Infertility N Acid Reflux (GERD) N Cancer N Stroke N Abuse/Domestic Violence N Asthma N Endometriosis N High Cholesterol N Hepatitis N Heart Disease N Fibromyalgia N Pre-Eclampsia N Hypertension N Osteoporosis N Kidney Disease N Gynecological History Statement/Question Response Abnormal Pap Y Date of Last Mammogram 07/03/2021 Date of LMP 04/06/2023 On BCP's at Conception? N STIs/STDs N HPV Vaccine N Duration of Flow (days) 3 Age at Menarche 15 Current Control Method None Age at First Child 21 Frequency of Cycle (Q days) 30 Sexually Active? Y Menses Monthly Y Date of Last Pap Smear 06/18/2022 Sexual Problems? N LMP Approximate Desired Control Method Unknown Obstetrics History GPAL:G 7 P 5 0 2 5 Type Value Multiple Births 0 Full Term 5 Induced 0 Spontaneous 2 Premature 0 Living 5 Ectopics 0 Total 7 Immunizations Vaccine Type Date Status Note Provider Nam e and Address Organization Details Recorded Time Tdap 7 completed Not Available [facility] 06/05/2019 02:40:22 Influenza, split virus, quadrivalent, preservative 7 completed Not Available [facility] 06/05/2019 02:34:24 Past Encounters Encounter ID Performer Location Encounter Start Date Encounter Closed Date Diagnosis/Indication Diagnosis SNOMED-CT Code Diagnosis ICD10 Code Diagnosis Note [id number] Alan Perez HC (AERIAL TRAM OPERATOR) [address] [place] [address] 75717-430 0 04/11/2014 14:34:07 04/11/2014 15:45:03 - on history [id number] OSEI Umana (AERIAL TRAM OPERATOR) [address] [place] [address] 98023-668 0 04/20/2014 09:59:29 04/20/2014 13:43:58 - on history [id number] Alan Perez (AERIAL TRAM OPERATOR) [address] [place] [address] 52131-132 0 04/27/2014 12:17:41 04/27/2014 13:14:09 Normal [id number] Chris (AERIAL TRAM OPERATOR) [address] [place] [address] 76152-403 0 07/04/2014 15:57:59 07/04/2014 17:23:10 care [id number] OSEI Umana (AERIAL TRAM OPERATOR) [address] [place] [address] [id number] 0 02/19/2016 15:14:56 02/20/2016 10:29:29 Gynecologic examination 56666684 Z01.420 [id number] Alan Perez (AERIAL TRAM OPERATOR) [address] [place] [address] [id number] 0 04/16/2016 10:16:07 04/17/2016 15:22:32 Routine care 581534062 Z34.91 Advanced m aternal age 357661360 O09.521 Threatened miscarriage in first trimester 22237041 O20.0 [id number] NISHI Ho (AERIAL TRAM OPERATOR) [address] [place] [address] [id number] 0 05/03/2016 15:32:13 05/03/2016 16:33:48 26139845 Z33.1 [id number] Alan Perez (AERIAL TRAM OPERATOR) [address] [place] [address] [id number] 0 05/28/2016 10:22:54 05/30/2016 13:12:17 Routine care 443213854 Z34.91 Advanced m aternal age 260440775 O09.521 Pt offered genetic amniocente sis/counse ling at [facility] has US today 05/28/16 [id number] Alan Perez (AERIAL TRAM OPERATOR) [address] [place] [address] 72543-781 0 06/25/2016 16:36:42 06/25/2016 17:44:43 Routine care 876530841 Z34.91 Depressive disorder 3548 9007 F32.9 [id number] Alan Perez (AERIAL TRAM OPERATOR) [address] [place] [address] [id number] 0 07/24/2016 16:13:41 07/25/2016 15:46:11 Routine care 958996271 Z34.91 Advanced m aternal age 875179337 O09.521 Pt offered genetic amniocente sis/counse ling at [facility] has US today 05/28/16 HPV - Fannie n papillomavirus test positive 785445917 R87.619 Eruption 101972535 R21 Oral lesion 0656634239 107 K13.70 [id number] Alan Perez (AERIAL TRAM OPERATOR) [address] [place] [address] [id number] 0 08/21/2016 12:02:55 08/23/2016 14:23:29 Routine care 854841478 Z34.91 Diabetes m ellitus screening 858693904 Z13.1 Z13.9 Advanced m aternal age 436835760 O09.521 Ultrasound today at [facility] [id number] Alan Perez (AERIAL TRAM OPERATOR) [address] [place] [address] [id number] 0 09/18/2016 16:19:40 09/18/2016 17:30:39 Routine care 936681074 Z34.91 Advanced m aternal age 487540910 O09.521 Ultrasound today at [facility] HPV - Fannie n papillomavirus test positive 980030384 R87.074 [id number] Alan Perez HC (AERIAL TRAM OPERATOR) [address] [place] [address] [id number] 0 10/01/2016 16:25:12 10/02/2016 15:00:15 Routine care 542855385 Z34.91 Advanced m aternal age 146425766 O09.521 Ultrasound today at [facility] HPV - Fannie n papillomavirus test positive 324182484 R87.833 [id number] Alan Perez (AERIAL TRAM OPERATOR) [address] [place] [address] [id number] 0 10/15/2016 16:37:23 10/15/2016 17:14:30 Routine care 894767175 Z34.91 Advanced m aternal age 556838118 O09.521 Ultrasound today at [facility] Family zachary nning surveillance 686387316 Z30.09 [id number] Alan Perez (AERIAL TRAM OPERATOR) [address] [place] [address] [id number] 0 11/04/2016 12:17:38 11/04/2016 16:20:14 Routine care 077869378 Z34.91 Advanced m aternal age 447960905 O09.521 Ultrasound today at [facility] [id number] Alan Perez (AERIAL TRAM OPERATOR) [address] [place] [address] [id number] 0 11/11/2016 15:49:47 11/12/2016 16:14:09 Routine care 786653154 Z34.91 Advanced m aternal age 411932205 O09.521 HPV - Fannie n papillomavirus test positive 672830794 R87.619 Varicose v eins of lower extremity 29972819 I83.069 [id number] Alan Perez (AERIAL TRAM OPERATOR) [address] [place] [address] [id number] 0 11/18/2016 15:48:50 11/18/2016 16:51:00 Routine care 082179579 Z34.91 Advanced m aternal age 433152616 O09.083 [id number] OSEI Miguel (AERIAL TRAM OPERATOR) [address] [place] [address] [id number] 0 11/25/2016 15:49:47 11/25/2016 17:20:04 HPV - Human papillomavirus test positive 156437556 R87.619 safe sex counsellin g Advanced m aternal age 135581570 O09.523 Secondary to advanced maternal age, Morrow score of 7 and 39 w 6 days - counselled patient regarding IOL and risks of prolonging above 39th week like risk of still --etc . Patient verbalized understand ing. Patient for Induction of labor this evening. Advised nothing to eat or drink for 8 hours before induction. Routine an tenatal care 748519040 Z34.93 [id number] Alan Perez (AERIAL TRAM OPERATOR) [address] [place] [address] [id number] 0 01/07/2017 11:33:11 01/07/2017 14:00:21 care 173879455 Z39.2 Exposure t o sexually transmissible disorder 743414582 Z20.2 Varicose v eins of lower extremity 17318723 I83.893 Sciatica 79572274 M54.30 Insertion of intrauterine contraceptive device 62640507 Z30.430 Screening mammography 24 577545 Z12.31 [id number] OSEI Umana (AERIAL TRAM OPERATOR) [address] [place] [address] [id number] 0 01/13/2017 11:40:29 01/13/2017 13:53:56 Family planning surveillance 667951674 Z30.09 Surveillan ce of intrauterine device contraception done 4940811043 20486 Z30.40 Confirmed presence of ParaGard IUD intrauteri ne. [id number] [facility] [address] [address] 02/06/2017 15:16:46 02/10/2017 21:29:45 Tinea pedis 9856078 B35.3 Pain in left knee 545616 3754 35957 M25.562 get physical therapy as ordered by OB--since no medical card now will have to pay out of pocket--[facility] to find out cost os take order to another PT facility Obesity 883834338 E66.9 weight loss recommende d daily exercise diet management [id number] Alan Perez HC (AERIAL TRAM OPERATOR) [address] [place] [address] [id number] 0 03/04/2017 11:34:40 03/05/2017 17:56:10 Family planning surveillance 756596494 Z30.09 Administra tion of influenza vaccine 73586712 Z23 Removal of intrauterine device 20919355 Z30.356 [id number] Alan Perez (AERIAL TRAM OPERATOR) [address] [place] [address] [id number] 0 09/15/2017 10:28:31 09/15/2017 12:26:39 Routine care 111271371 Z34.91 Advanced m aternal age 575687702 O09.113 [id number] Alan Perez (AERIAL TRAM OPERATOR) [address] [place] [address] [id number] 0 10/15/2017 11:37:05 10/16/2017 12:46:33 Complete miscarriage 306358129 O03.9 [id number] PRETTY EMERSON [facility] [address] [place] [address] [id number] 4 11/07/2017 11:16:29 11/11/2017 13:11:42 Onychomycosis 156956809 B35.1 try ciclopirox dailydiscu ssed must use for 2-3 monthsuse clotrimazo le cream BID x 10 daysf/u prn Verruca plantaris 022814 08 B07.0 cryotherap y performed on 3 warts on R handpt tolerated welldiscus sed otc wart treatments if does not workf/u 2 weeks if they do not fall off [id number] Alan Perez (AERIAL TRAM OPERATOR) [address] [place] [address] [id number] 0 03/18/2018 12:21:45 03/18/2018 14:19:52 Gynecologic examination 16110209 Z01.419 Exposure t o sexually transmissible disorder 055108916 Z20.2 [facility] 366455264 Z30.09 Irritable bowel syndrome 67758843 K58.9 [id number] Alan Perez (AERIAL TRAM OPERATOR) [address] [place] [address] 66329-916 0 08/18/2018 14:42:29 08/19/2018 14:54:04 Fibrocystic disease of breast 29863100 N60.19 Screening mammography 24 686091 Z12.31 HPV - Fannie n papillomavirus test positive 220041867 R87.619 Rheumatoid arthritis 698 57540 M06.9 [id number] Alan Perez (AERIAL TRAM OPERATOR) [address] [place] [address] [id number] 0 06/15/2019 13:55:18 06/16/2019 12:46:52 Migraine 63796352 G43.909 Hormone abnormality 8445 2003 R89.1 [id number] AILYN CASTANON (Adult Med) [address] [place] [address] 73171-527 0 08/04/2019 08:22:53 08/05/2019 09:07:40 Prediabetes 358085865 R73.03 HgbA1c 5.7 on 06/15/19- Discussed risks/bene fits of continuing metformin vs. starting lifestyle modificati ons. Pt elects to stop Metformin at this time. - Patient advised to try lifestyle changes at home for the next 3-6 months including cutting out sugary foods/carb ohydrates/ sugary drinks, increase exercise, and weight loss. Will continue to monitor, if number continues to rise, patient will be started on oral antiglycem ic agents.- RTC in 3 months to recheck HgbA1c- Handouts provided for further care instructjamie lehman. Migraine 36141329 G43.90 9 Hx of migraines once per month.- Will rx ibuprofen to be taken as needed when pain occurs.- As pt only has one migraine per month, will not start prophylact ic medication at this time. However, advised pt to let us know if her migraines increase in frequency. - Also recommende d OTC Excedrin to try when headaches occur (but advised not to take this medication with the ibuprofen) . Loss of hair 240698781 L 65.9 Reports more hair loss in shower drain than normal x 3 months.No areas of alopecia noted on exam.Admit s to still having regular menstrual cyclesTSH normal 05/2019- Provided pt recommenda tions including Biotin, Viviscal, and Rogaine for women, which she can seed cone picker OTC. [id number] AILYN CASTANON (Adult Med) [address] [place] [address] [id number] 0 11/05/2019 08:56:16 11/08/2019 12:48:46 Prediabetes 972989546 R73.03 HgbA1c 5.7 on 06/15/19At last visit, discussed risks/bene fits of continuing metformin vs. starting lifestyle modificati ons. Pt wanted to stop Metformin at that time and try lifestyle modificati onsShe wants to get HgbA1c test repeated - order sent to lab, come to office for testing Loss of hair [id number] L 65.9 Reports more hair loss in shower drain than normal x 3 months.No areas of alopecia noted on exam.Admit s to still having regular menstrual cyclesTS normal 05/2019- Provided pt recommenda tions including Biotin, Viviscal, and Rogaine for women, which she can seed cone picker OTC. Low back pain [id number] M54.5 Complainin g of my entire spine hurts x 1 month.The pain and stiffness is worse in the morning. Admits to getting a new tempur-ped ic bed about 1 month ago. Pain improves with heating pad and warm shower.No prior imaging of back. Denies prior back pain. Denies strenuous job, unusual activity, or heavy lifting. - encouraged her to try a different bed in the house for at least 3-4 days in a row and see if her back pain improves, may be due to the new mattress- advised her to take ibuprofen for pain and stiffness, continue with the heat and stretching - will order xray of thoracic and lumbar spine to look for other causes such as arthritis [id number] AILYN CASTANON (Adult Med) [address] [place] [address] 01/19/2020 09:47:03 01/19/2020 10:36:18 [id number] AILYN CASTANON (Adult Med) [address] [place] [address]49[address] 0 01/20/2020 09:05:00 01/27/2020 09:59:42 Gastroesophageal reflux disease without esophagitis [id number] K21.9 Complainin g of left sided chest pain, throat pain, and burning sensation in her chest after she eats food x 3 weeks.The pain in her chest is sharp and will last 3-4 hours at a time, the pain usually resolves on its own, has not tried anything to help with the pain. Admits to history of acid reflux 2-3 years ago, states these current symptoms feel a bit different. Denies chest pain with exertion. Denies URI symptoms including odynophagi a, nasal congestion , rhinorrhea , and cough. Denies SOB, CENTENO, and heart palpitatio ns.- will order CBC and CMP to rule out infection and liver/GB issues- will start short course of PPI to see if this helps her symptoms- provided her with supportive care regarding GERD- return to office in 1 month if symptoms continue Blurring o f visual image [id number] H53.8 Complainin g of intermitte nt blurry vision x 2 months ago.She has glasses, used to never wear them, admits she has been wearing them more because they help with the blurry vision. There is no pattern the vision changes though, will sometimes have blurry vision while wearing the glasses.Hx of prediabete s.Denies pain and floaters in her vision.- will send referral to ophthalmnemesio schmitt for eye exam Varicose v eins of lower extremity 33123683 I83.893 Hx of varicose veins in bilateral legs, they are causing her pain and making her legs feel heavy- will place order for referral for vascular surgery [id number] AILYN CASTANON (Adult Med) [address] [place] [address] 03/09/2020 07:49:13 03/10/2020 09:09:24 Fibrocystic disease of breast 17875513 N60.19 Patient has a history of fibrocysti c breasts. She reports right breast pain for the past two weeks with associated nipple tenderness and arm pain.Sympt oms worsen with menses.US on 11/04 showed cystic lesion of right breast with suspicion for abscess.Sh caitlyn denies skin changes.- Advised her to keep taking Ibuprofen as needed and to apply warm compresses - Educated patient to avoid caffeine as this can worsen symptoms - Educated on signs of infection such as fever, chills, erythema. If patient notices these symptoms she will call back for further treatment, including antibiotic s. Helicobact er pylori gastrointestinal tract infection 135123198 B96.81 + Hpylori breath test on 01/21/20. Patient treated with clarithrom ycin triple antibiotic therapy.No longer taking omeprazole .Denies abdominal pain today.- Will place order for repeat breath test to ensure successful treatment Iron defic iency anemia 20388752 D50.9 Patient has a history of iron deficiency anemia. Labs were last obtained on 01/25/20. She is still taking an iron supplement . She is due for repeat labs.- Will obtain labs to recheck for anemia and iron deficiency Screening for malignant neoplasm of breast 351745010 Z12.39 Patient presents with right breast pain for two weeks and also reports some left breast discomfort as well. She has a history of fibrocysti c breasts. Last mammogram on 09/01/18 was normal.- Will place order for mammogram screening as patient is due. She will schedule an appointmen t when it is convenient for her. [facility] 013745822 Z00.00 Patient presents with right breast pain. She is due for mammogram. - PHQ 06/27 was negative today (0 out of 27) - Order placed for mammogram [id number] AILYN CASTANON (Adult Med) [address] [place] [address] 04/21/2020 08:08:42 04/24/2020 10:58:31 Acute pyelonephritis 71066703 N10 She developed left middle back pain with radiation to left upper quadrant abdominal pain located underneath the ribs 2 days ago, her pain was accompanie d by fatigue, headache, weakness, fever, dysuria, and urinary frequency. [facility] showed left ureterecta sis and bilateral non-obstru cting kidney stonesUA showed evidence of UTI, culture showed growth of E.Coli which is resistant to Bactrim yet patient was discharged home on Bactrim for UTIShe started taking the bactrim yesterday and has seen no improvemen t since taking medication . She is still having all of her symptoms including high fever (Max 104 deg F), severe back pain, dysuria, urinary frequency, and malaise.- will switch medication to Cipro 500 mg BID x 7 days, urine culture showed E.Coli was susceptibl e to Cipro. Stop the Bactrim.- take tylenol PRN to help reduce fever- encouraged her to drink lots of water and use heating pad to help with pain- if symptoms do not improve over the weekend or they get worse, return to the ED Kidney stone 67779872 N2 0.0 CT of the abdomen in the ER showed left ureterecta sis and bilateral non-obstru cting kidney stones- discussed diagnosed of nephrolith iasis with patient since she was unaware- encouraged her to push the fluids including water to help pass the stones- advised her to watch for decreased urinary output, hesitancy, hematuria, and worsening back pain [id number] AILYN CASTANON (Adult Med) [address] [place] [address] 06/16/2020 08:59:09 06/20/2020 07:15:57 Low back pain 967008602 M54.5 Hx of low back pain, admits to worsening symptoms now with R leg paresthesi as x 1 monthThe pain and stiffness is worse in the morning. Admits to getting a new tempur-ped bed 6 months ago. Pain improves with heating pad and warm shower.Nev er completed imaging ordered at visit 6-7 months agoDenies prior back pain. Denies strenuous job, unusual activity, or heavy lifting. - encouraged her to get xrays completed- will start on meloxicam to help with possible arthritis pain plus short course of steroids to decrease possible inflammati on causing nerve pain- continue with the heat and stretching Pain of ri ght temporomandibular joint [id number] 1885127 M26.621 Complainin g of intermitte nt R TMJ pain over the past few months.She is unsure if she grinds her teeth at night or clenches them during the day. Notes more pain with colder weather. Has not tried anything for the pain.Denie s pain with chewing. Denies injury.- discussed possible disorder of TMJ, will start steroids and anti-infla mmatory to see if this helps- consider wearing nightguard while sleeping Abdominal pain 09108377 R10.9 Complainin g of bilateral lower abdominal painStates If I sleep more than 6 hours, my abdominal pain will wake me up from sleep and will not go away until I stand for about 10 minutes and I feel like I have a big rock in my stomach .T his abdominal pain occurs every morning.De nies urinary frequency, dysuria, abnormal vaginal discharge, constipati on, and diarrhea.- due to patient being somewhat of a poor historian and unable to evaluate symptoms, I encouraged her to make a f/u visit with me in the office so I can examine her- consider interstiti al cystitis, discuss urinary symptoms more at f/u Sciatica [id number] M54.31 Complainin g of intermitte nt episodes of R posterior leg (mostly R calf) numbness and tingling x 1 month. Accompanie d by worsening low back pain.The symptoms used to only occur at night when she would get home from work but now the episodes are occuring throughout the entire day. Episodes of numbness and tingling will last x 3-5 minutes at a time and occur multiple times per day, usually more so when standing but can occur while sitting.Ad mits to bilateral LE swelling which usually occurs after a long day of work.Denie s injury or trauma to the back, R knee, and R leg.Denies R calf swelling, pain, and erythema to the skin.- encouraged her to get xrays completed - will start on meloxicam to help with possible arthritis pain plus short course of steroids to decrease possible inflammati on causing nerve pain - continue with the heat and stretching [id number] AILYN CASTANON (Adult Med) [address] [place] [address] 07/17/2020 14:52:39 07/18/2020 09:55:42 Degeneration of intervertebral disc 80557266 M51.9 Xrays showed scattered DDD to the thoracic and lumbar spine from last visitNow complainin g of similar neck pain with what sounds like tension-he adachesOn PE: cervical spine TTP- discussed likely DDD to cervical spine since scattered DDD noted in thoracic and lumbar spine- continue with tylenol arthritis PRN for pain, avoid meloxicam due to SE in the past- will send referral for PT to help with neck pain and muscle stiffness Tension-type headache 39 4253265 G44.209 Complainin g of continued back pain throughout her entire spine from her neck to her lower back.Admit s to tight neck muscles and a new pressure in her head which feels like a rubber band around her head. Admits to numbness/t ingling to her eyebrows bilaterall y.Admits to change in vision, having issues reading and seeing things at a distant but states she saw ophthalmol oskar last month and all was normal.On PE: trapezius muscles stiff and TTP bilaterall y- start muscle relaxer at night x 14 days, aware of SE of drowsiness - provided her with supportive care informatio n and exercises to start at home- PT referral sent for neck pain and stiffness Loss of hair 547433130 L 65.9 Complainin g of increased fatigue and hair loss since COVID 04/2020.Co mplained of more hair loss at prior visitNo areas of alopecia noted on exam.Admit s to still having regular menstrual cyclesTSH normal 05/2019- Provided pt recommenda tions including Biotin, Viviscal, and Rogaine for women, which she can seed cone picker OTC.- will recheck thyroid levels, may be SE from COVID Generalize d aches and pains 60634977 R52 At last few visits, complainin g of multiple type of new bone and muscle pain throughout her body including neck, middle back, lower back, headaches, jaw pain, shoulder pain so can't carry purse, and sciaticaDe nies recent increase in stress, depression and anxiety- will order some labs to ensure no underlying issue, if normal, consider fibromyalg ia diagnosis and treatment 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85 Rheumatoid arthritis 698 22798 M06.9 Advanced m aternal age 321178280 O09.519 Past pregn darwin history of miscarriage 685926524 Z87.59 [id number] AILYN KOHLER (AERIAL TRAM OPERATOR) [address] [place] [address] 0 10/10/2020 08:25:07 10/14/2020 19:33:35 Routine care 086943399 Z34.91 ACOG at 9 weeks. Test results reviewed. Advised to continue progestero ne and pelvic rest until first tri US. Contact office if bleeding resumes/in creases. OB educationa l packet reviewed and will be provided to patient at next visit. Advanced m aternal age 543198914 O09.511 Referred to [facility]. 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 Continue folic acid and ASA. Will administer B12 at next visit. Prediabetes 003629010 R7 3.03 A1c 5.7 Limit carbohydra ruben and sugary drinks. Early GCT. [id number] Alan Perez [facility] (AERIAL TRAM OPERATOR) [address] [place] [address] 0 10/30/2020 10:17:45 11/02/2020 09:40:48 Routine care 087804280 Z34.91 Advanced m aternal age 832408244 O09.519 Heterozygo us methylenetetrahydrofo late reductase mutation [id number] 94277 E72.12 Compound heterozygo sity for the C677T and G2863Z variants Past pregn darwin history of miscarriage 134764664 Z87.59 Prediabetes 022393360 R7 3.03 Subchorionic hematoma 60 9167206 O41.8X99 Abnormal progesterone 13 6108163 R94.7 Increase progestero ne 200 mg capsule to QID [id number] Alan Perez (AERIAL TRAM OPERATOR) [address] [place] [address] 0 11/02/2020 10:25:06 11/06/2020 07:13:05 Missed miscarriage 04464823 O02.1 Advanced m aternal age 095412796 O09.519 Heterozygo us methylenetetrahydrofo late reductase mutation 1368536347 56254 E72.12 Compound heterozygo sity for the C677T and T9664Q variants [id number] Alan Supriya Perez (AERIAL TRAM OPERATOR) [address] [place] [address]8056[address] 0 11/07/2020 11:04:34 11/13/2020 08:20:14 Complete miscarriage 365408192 O03.9 depression 58 170430 F53.0 [id number] AILYN CASTANON (Adult Med) [address] [place] [address]85-104 0 11/23/2020 11:26:14 11/24/2020 14:43:41 Acute otitis media 7498795 H66.93 Patient started on augmentin x 4 days ago for bilateral acute otitis media. Notes ear pain has resolved.O n exam today, TMs are still erythemato us and fluid is noted in the middle ear.- Finish course of augmentin- Medrol Edwardo prescribed to be taken with the last few days of augmentin to finish clearing infection- c/w allergy medication Pain of ri ght temporomandibular joint [id number] 2834689 M26.621 Complainin g of intermitte nt R TMJ pain over the past few months.She is unsure if she grinds her teeth at night or clenches them during the day. Notes more pain with colder weather. Has not tried anything for the pain.Denie s pain with chewing. Denies injury.- discussed possible disorder of TMJ, will start steroids and anti-infla mmatory to see if this helps- consider wearing nightguard while sleeping Migraine 13383431 G43.90 9 History of migraines, notes she gets them very infrequent ly but usually has to go to the hospital for treatment of them when she does have themCompla ining today of headache x 2 days. Describes headache as dull, wrapping around her head. Has tried ibuprofen 800mg with only temporary relief of symptoms.A dmits to nausea, photophobi a, and phonophobi a.Denies vision disturbanc es but states her eyes fatigue easily.DDx : possible multi-fact orial with tension, migraine, and sinus issues- c/w allergy medication - discussed supportive care for tension headaches- Will prescribe sumatripta n to be taken as needed for migraine, take at first onset of headache [id number] AILYN CASTANON (Adult Med) [address] [place] [address] 02/16/2021 15:10:57 02/16/2021 15:56:42 Acute right otitis media 126126517 H66.91 On exam today: R TMs erythemato us, fluid is noted behind TMs bilaterall y- start augmentin and steroids x 7 days- c/w allergy medication PRN Allergic disposition 609 502963 T78.40XA Admits to intermitte nt symptoms of clear rhinorrhea , congestion , and scratchy throat- will start oral allergy medication , take daily during season changes Temporal headache 235260 06 R51.9 Complainin g of intermitte nt R temporal headache x 2 weeks. The pain starts in her R temporal area and radiates to her R cheek and lower jaw. She notes the R temporal area is tender to touch.She went to see her dentist because she thought it was her teeth causing the issue, her dentist reported no issues. Has tried ibuprofen 800mg with only temporary relief of symptoms.S he had similar pain a few months ago, was treated with augmentin, flonase, and steroids for ear infection and rhinosinus itis, the R sided temporal pain went away after taking the medication .Notes her usual migraines are very different in nature. Admits to nausea, photophobi a, and phonophobi a during migraines. 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 Second episode occurred 10 years later, I was told it was due to my stress at the time Notes the facial paralysis completely resolved after about 1-2 months for each episodeDen ies current issues with facial paralysis [id number] AILYN CASTANON (Adult Med) [address] [place] [address] 03/05/2021 14:32:30 03/08/2021 12:29:36 Hordeolum externum of upper eyelid of right eye 6650835994 87279 H00.011 Still complainin g of small pimple to the R upper eyelid that has not improved with supportive care including time to heal and warm compress- topical antibiotic sent to pharmacy Impaired g lucose tolerance 5900375 R73.03 Requesting to have HgbA1c rechecked again today Temporal headache 162563 06 R51.9 At last visit, was complainin g of intermitte nt R temporal headache x 2 weeks.She completed the steroids and oral antibiotic s plus still taking oral anti-hista mine medication and notes her right sided temporal pain and headaches have improved greatly.Ad mits to a small infrequent residual pain intermitte ntly but overall improved since last visit. She completed MRI of brain on Friday.Not es her usual migraines are very different in nature.- discussed MRI results with patient, overall normal but evidence of small hyperinten se signal so will refer to neurology to discuss abnormal findings with patient- will continue to monitor symptoms, return to office if symptoms return [id number] AILYN CASTANON (Adult Med) [address] [place] [address] 03/26/2021 08:53:12 03/27/2021 09:55:12 Pain of breast 13098892 N64.4 Last week, developed a painful lump on the R breast x 3 days. The lump and pain developed suddenly and then resolved on its own suddenly. Patient states the skin of the breast was normal, no visual lump noticeable during the time.Today , no longer complainin g of pain or lump. Denies family history of breast cancer.Fuad mogram 06/2020 was normalOn PE: normal CBE- discussed options including getting breast US vs observatio n for now, she would like to continue with observatio n and notes she will reach out if symptoms return- due for annual mammogram 06/2021 [address] act infectious disease 87854885 N39.0 Last week patient called office with complaint of dysuria x 3 days, was concerned for UTINo patient appointmen ts available, sent prescripti on for macrobid to cover for UTIShe took the medication as prescribed and the dysuria resolved- no further action needed- discussed ways to help prevent UTIs in the future Neuropathy 989685714 G62 .9 Complainin g of intermitte nt lateral and posterior calf numbness/t ingling bilaterall y over the last few months. The paresthesi as occur randomly, can occur at rest and also with activity. Has not tried anything at home.Admit s to sitting with her legs crossed majority of the time.Vladimir s low back pain, paresthesi as down the entire leg, issues with foot dropPossib le peroneal nerve entrapment - start anti-infla mmatory x 14 days, ice the area 2-3x/day, and try to avoid crossing legs when sitting- will continue to monitor, if symptoms do not get better with supportive care, please make f/u appointmen t [id number] AILYN CASTANON (Adult Med) [address] [place] [address] 06/07/2021 14:47:30 06/08/2021 10:03:23 Pain of breast 27771848 N64.4 At last visit, was complainin g of only R breast pain but today complainin g of bilateral breast pain x 1-2 months. The pain right now is located on the lateral aspect of both breasts, states the area is very sensitive. Pain is worse during menses but still present when not on menses.Use d to take supplement s from Dr. Epps which greatly helped but has been without them for the past year.Vladimir corado family history of breast cancer. Mammogram 06/2020 was normal.Den ies recent vaccinatio n. Denies nipple discharge or mass.On PE: normal CBE- due for repeat mammogram next month, diagnostic ordered due to pain- restart supplement s- discussed fibrocysti c breast disease in more detail with patient so she understood the chronic pain that comes along with her menstrual cycles Dyspnea on exertion 6084 5006 R06.09 After being diagnosed with pre-diabet es she has been trying to exercise more, states she used to be able to go a full hour with working out and now can only go 15 minutes before she feels very short of breath and develops a chest pain that goes across her entire chest.Note s these symptoms started after having COVID, remembers having SOB during COVID.Virgil es fever, chills, nausea, vomiting, cough, and wheezing.- try albuterol inhaler while working out- chest xray and PFTs to rule out lung issues Migraine 96588319 G43.90 9 Requesting refill on the IBU and also has not heard from Neurology yet since referral was placed- will look into referral for patient and refill med [id number] AILYN CASTANON (Adult Med) [facility] [place] [place] [address] 10/25/2021 14:46:25 10/26/2021 09:21:52 Tendinitis of right rotator cuff [id number] 9400129 M67.813 For three weeks patient has experience d right shoulder pain. She says she has pain whenever she tries to lift her right arm over her head and whenever she tries to lift objects with her right arm. No known injury. No repetitive motion during the day. - on exam patient has limited range of motion of right shoulder both passive and active due to pain, and TTP over right AC joint and trapezius muscle on right side- Will refer patient to physical therapy for possible RTC tendinitis , and start naproxen 500 mg BID for 2 3 weeks- provided patient with rotator cuff injury informatio n and exercises Atypical chest pain 1025 64385 R07.89 Woke up and felt a sharp chest pain between her breasts 3 weeks ago. Describes the pain as sharp, like someone is poking her with a needle. The chest pain usually lasts a couple minutes and goes away randomly. Does not radiate anywhere and not worse with exercise. The pain typically occurs in the morning and gets better throughout the day. She says around the same time she first noticed a chest pain her right shoulder began to hurt. She denies personal or family history of cardiac issues, shortness of breath, fever, syncope, palpitatio ns, or trauma to her right shoulder or chest. - on exam patient has the same sharp chest pain whenever she takes a big deep breath, no chest wall tenderness - advised patient it does not sound cardiac in nature at this time- Will monitor over the next one two weeks to see if symptoms improve, patient is agreeable with plan [id number] AILYN CASTANON (Adult Med) [facility] [place] [place] [address] 01/29/2022 15:16:08 01/30/2022 11:16:32 Atypical chest pain 834918470 R07.89 Pt reporting sharp chest pain between her breasts x 3 months. Describes the pain as sharp, like someone is poking her with a needle. The chest pain usually lasts a couple minutes and goes away randomly. Pain is worse in the morning, with inspiratio n and with movement of her arms. Does not radiate anywhere and is not worse with exercise. Confirms occasional sensation of palpitatio ns. She denies personal or family history of cardiac issues, shortness of breath, fever, syncope, or trauma to her right shoulder or chest.- EKG ordered due to persistenc e of atypical chest pain- Trial of H2 antagonist to see if this improves sx- RTC if sx do not improve Mammography abnormal 168 796760 R92.8 R breast asymmetry at the 9 o'clock position seen on screening mammogram. R breast biopsy done 07/24/21 noting a nodule that was likely benign; recommende d f/u breast US 01/07-Orde r for repeat US Vertigo [id number] R42 Pt reporting 2 weeks of intermitte nt dizziness, nausea, and headaches that last about 20 minutes and are exacerbate d by sudden changes in head movements. Sx originally occurred daily, and over the last week have been every other day. Ibuprofen improves sxPt took test at home that was negativeDe nies tinnitus, otalgia, hearing loss, changes in vision, nasal congestion , rhinorrhea , sneezing-C etirizine rx as below-Vert igo and BPPV informatio n provided to pt-RTC if sx do not improve Paresthesi a of lower extremity 503013885 R20.2 Pt reporting intermitte nt right calf numbness x 3 months. States numbness is localized to her right calf and does not radiate. Sx are worse in the evening. Pt states area is not painful, just numb. Pt reports she spends most of her work day on her feet and moving around. Confirms intermitte nt knee pain. Pt admits that whenever she is sitting, she does sit with her right leg crossed over her left legDenies injury to area, feeling off balance, difficulty ambulating -Right knee X-Ray ordered to r/o bony pathology- Pt encouraged to trial sitting without her legs crossed to see if this improves her sx (r/o peroneal nerve pathology) [id number] AILYN CASTANON (Adult Med) [address] [place] [phone] 03/06/2022 12:19:27 03/07/2022 10:39:35 Atypical chest pain [id number] R07.89 Pt reporting sharp chest pain between her breasts x 3 months. Describes the pain as sharp, like someone is poking her with a needle. The chest pain usually lasts a couple minutes and goes away randomly. Pain is worse in the morning, with inspiratio n and with movement of her arms. Admits to radiation towards her middle back. Confirms occasional sensation of palpitatio ns. She denies personal or family history of cardiac issues, shortness of breath, fever, syncope, or trauma to her right shoulder or chest.- EKG normal from last visit- Trial of H2 antagonist successful ; c/w famotidine 1 tab PO 2x daily- continued light pain may be due to DDD of thoracic spine, possible nerve irritation , plan to just monitor for now since symptoms have improved Mammography abnormal 168 878405 R92.8 R breast asymmetry at the 9 o'clock position seen on screening mammogram. R breast biopsy done 07/24/21 noting a nodule that was likely benign; recommende d f/u breast US 01/07-repe at US normal; pt may now began regular mammo screening 07/2022 Vertigo [id number] R42 Sxs have resolved, pt has no complaints of vertigo. Cetirizine course successful . Paresthesi a of lower extremity 694090569 R20.2 Pt reporting intermitte nt right calf numbness x 4 months, states sxs have improved.N umbness is localized to her right calf and does not radiate, no pain. Sx worse in the evening. Pt reports she spends most of her work day on her feet and moving around. Confirms intermitte nt knee pain.Vladimir s injury to area, feeling off balance, difficulty ambulating -Right knee X-Ray ordered at previous visit to r/o bony pathology, results normal-Pt reports improvemen t w/ sitting without her legs crossed (potential peroneal nerve pathology) , pt reports improvemen t when not crossing legs. Osteoarthritis 808945196 M19.90 -Discontin ue Naproxen, given SE of fatigue-St art Meloxicam prn instead-In fo regarding osteoarthr itis provided to pt in office today-Per pt request for vitamins, calcium & vit D prescribed today Renewal of prescription 513062809 Z76.0 Requesting IBU 800 mg to take PRN for headaches, understand s that IBU and meloxicam are similar and she can not take them both at max doses on a regular basis [id number] AILYN CASTANON (Adult Med) [address] [place] [address] 06/04/2022 14:23:03 06/06/2022 09:57:59 Overweight 340893258 E66.3 Advised decreased portion sizes, good food choices, limited eating out or fast food and eliminate soda and juice from diet. Advised physical activity daily and offered encouragem ent to continue with positive changes made so far. Tendinitis of right rotator cuff [id number] 7997417 M67.813 She recently completed 6 weeks of PT for her R shoulder pain, PT helped improve her ROM but still getting anterior and superior shoulder pain. She noticed the superior part of her shoulder is painful and swollen in the mornings when she wakes up.Denies known injury to the shoulder or overuse activity.- due to continued pain despite PT, will order MRI for further evaluation - hold off on scheduling until we know it is approved Atypical chest pain 1025 75707 R07.89 Still having left intermitte nt chest pain, the pain occurs randomly and can last x 15-20 minutes before it resolves on its own. The chest pain is sharp in nature. Can be worse w/ movement and deep breathsFam otidine has helped with the intermitte nt epigastric and esophageal pain but not the left sided chest pain.Admit s to palpitatio ns and mild SOB (unable to get air out of lungs) during her chest pain. - EKG normal from last visit- cardiology referral sent due to continued intermitte nt chest pain, cardiac work-up warranted at this time- if negative continued light pain may be due to DDD of thoracic spine, possible nerve irritation , plan to just monitor for now since symptoms have improved Screening mammography 24 441365 Z12.31 Prior breast biopsy was on the R breast, due to screening mammogram next month again.Prov ided patient with mammogram order, she understand s she needs to call and schedule appointmen t Gastroesop hageal reflux disease without esophagitis 668034833 K21.9 Complainin g of left sided chest pain, throat pain, and burning sensation in her chest after she eats food. Famotidine helped with GERD type symptoms but not the left sided chest pain- c/w H2 thad PRN- c/w supportive care [id number] AILYN KOHLER (AERIAL TRAM OPERATOR) [address] [place] [address] 06/18/2022 09:24:20 06/20/2022 13:43:18 Gynecologic examination 44659563 Z01.419 Normal gynecologi c exam today.Cerv ical cancer screening: Last Pap 03/18/2018 NILM/HPV neg, updated todayBreas t cancer screening: Last mammogram Jun 2021 BIRADS 3, repeat mammogram scheduled this monthSTI screening: declinesCo ntraceptio n: declinesDi et/exercis e: Counseled regarding importance of physical activity, healthy diet and appropriat e calcium intake.RTC in 1yr and prn Pain in pelvis 16743333 R10.2 Daily bilateral pelvic pain t5zlezer with heavier periods but no menorrhagi a or BTB, PE WNL. Follow up TVUS. Will follow up with results. [id number] AILYN CASTANON (Adult Med) [address] [place] [phone] 09/04/2022 14:31:24 09/05/2022 09:49:26 Overweight 238630765 E66.3 Advised decreased portion sizes, good food choices, limited eating out or fast food and eliminate soda and juice from diet. Advised physical activity daily and offered encouragem ent to continue with positive changes made so far. Tendinitis of right rotator cuff [id number] 3947872 M67.813 Right shoulder is still causing her pain, the pain did improve with PT but still bothers her on a daily basis. The pain is no longer on the lateral aspect of shoulder but now posterior aspect of R shoulder. She never heard from ortho specialist from last visit.- ortho referral given again today- MRI was denied by insurance Pain in both feet 968021 1522 9639381 M79.671 Complainin g of pain in bilateral feet, pain and burning at bottom of feet, pain in her toes bilaterall y, pain at her heels, and dry skin to bottom of feetLikely multi-fact orial, tinea pedis vs plantar fasciitis vs pes planus vs neuropathy coming from back/SI joint- podiatry referral given due to possible multiple causes and chronic foot pain Tinea pedis 6357828 B35. 3 Complainin g of very dry skin on the bottom on her feet bilaterall y, my feet feel like they are burning sometimes - rash on feet consistent with tinea pedis- start topical cream daily x 6 weeks at night- provided informatio n Piriformis syndrome 1291 62685 G57.01 Admits to numbness and tingling radiating down the back of her R leg, the pain starts on the R side of her buttocks. Denies injury to lumber spine. Denies injury to feet bilaterall y.ON PE: + R SI joint pain- discussed possible SI joint pain vs piriformis syndrome causing her symptoms- provided exercises at home, NSAIDS, stretching , weight loss, etc. Plantar fasciitis 476460 003 M72.2 Also has pain on bilateral heels in the morning time, states walking can be painful at first.- informatio n on PF given- rec. ice and massage to the area plus exercises twice daily, rec. wearing good shoes around the house Acquired pes planus 203409 M21.40 Complainin g of pain to bilateral feetOn PE: flat feet noted bilaterall y on exam while standing- provided her informatio n- seed cone picker OTC arch supports to try first, start in small amounts and slowy increase use- podiatry referral given Varicose v eins of lower extremity 75272288 I83.893 Hx of varicose veins in bilateral legs, they are causing her pain and making her legs feel heavy- will place order for referral for vascular surgery Depression screening 171 569674 Z13.31 PHQ 2/9 was negative in office today (0 out of 27) [id number] AILYN CASTANON (Adult Med) [facility] [place] [place] [address] 12/03/2022 12:27:22 12/04/2022 14:09:05 Sprain of left ankle [id number] 7147312 S93.402D Twisted ankle going down stairs 11/16/2022, Xray was negative and diagnosed with sprain. Saw ortho earlier this morning (12/03/2022 ) and was given boot. Told to wear for a month and return for f/u. Will also be completing US soon to r/o tear. -PE: mild swelling, ATFL TTP-contin ue f/u with ortho, return with problems Anemia 472859910 D64.9 Anemia of 8.7 found at [facility] 10/22/2022. Was told due to her periods, but states only has 2 heavy days where she goes through 4 pads a day and has had transvagin al US without abnormal findings. Presents 12/03/2022 with significan t fatigue. -recheck labs today, potentiall y start iron supplement s-will treat peptic ulcer and refer to GI. Do not believe secondary to menstrual cycles. Peptic ulcer 89287656 K2 7.9 History of symptoms resembling GERD as well as testing positive for H. Pylori. Denies alcohol or NSAID abuse. Anemia of 8.7 found at [facility] 10/22/2022 and was told from her periods.Co mplaining of chest pain and intermitte nt RUQ and epigastric pain - concern for possible PUD -presents 12/03/2022 with significan t fatigue, pain with swallowing , epigastric tenderness .-will treat for assumed peptic ulcer and refer to GI for potential EGD.- avoid NSAIDS Varicose v eins of lower extremity 00067845 I83.893 Hx of varicose veins in bilateral legs, they are causing her pain and making her legs feel heavy- will place order for referral for vascular surgery Overweight 791323379 E66 .3 Advised decreased portion sizes, good food choices, limited eating out or fast food and eliminate soda and juice from diet. Advised physical activity daily and offered encouragem ent to continue with positive changes made so far. [id number] AILYN CASTANON (Adult Med) [address] [place] [address] 12/11/2022 14:19:47 12/12/2022 15:31:25 Sprain of left ankle [id number] 3639352 S93.402D Twisted ankle going down stairs 11/16/2022, Xray was negative and diagnosed with sprain. Saw ortho 12/03/2022 and was given boot. Told to wear for a month and return for f/u. Will also be completing US tomorrow, 12/12/22 to r/o tear. -continue f/u with ortho, return with problems Peptic ulcer 53111408 K2 7.9 History of symptoms resembling GERD as well as testing positive for H. Pylori. Denies alcohol or NSAID abuse. Anemia of 8.7 found at [facility] 10/22/2022 and was told from her periods. Presented 12/03/2022 with significan t fatigue, pain with swallowing , epigastric tenderness . Began omeprazole and given GI referral. - abdominal tenderness and with swallowing still present but much improved, continue omeprazole - avoid NSAIDS, wait to hear from GI for EGD-return in 6 weeks to assess improvemen t Anemia 530778702 D64.9 Anemia of 8.7 found at [facility] 10/22/2022. Was told due to her periods, but states only has 2 heavy days where she goes through 4 pads a day and has had transvagin al US without abnormal findings. Presents 12/03/2022 with significan t fatigue, Hgb found to be 9.1 and iron 21, began iron supplement s -will treat peptic ulcer and refer to GI. Do not believe secondary to menstrual cycles.-fa tigue much improved, continue iron supplement s and RTC in 6 weeks to recheck Overweight 456025190 E66 .3 Advised decreased portion sizes, good food choices, limited eating out or fast food and eliminate soda and juice from diet. Advised physical activity daily and offered encouragem ent to continue with positive changes made so far. Depression screening 171 603629 Z13.31 PHQ 2/9 was negative in office today (0 out of 27) [id number] AILYN CASTANON (Adult Med) [address] [place] [address] 01/28/2023 15:10:26 02/04/2023 09:31:19 Sprain of left ankle [id number] 7409849 S93.402D Twisted ankle going down stairs 11/16/2022, Xray was negative and diagnosed with sprain. Saw ortho 12/03/2022 and was given boot. No longer in boot. Ultrasound with ortho for ankle showed a chronic partial tear of the ATFL, currently working with physical therapy per Ortho. Only has mild pain when standing for long periods of time. - c/w ortho and PT Peptic ulcer 48847139 K2 7.9 History of symptoms resembling GERD as well as testing positive for H. Pylori. Denies alcohol or NSAID abuse. Anemia of 8.7 found at [facility] 10/22/2022 and was told from her periods. Presented 12/03/2022 with significan t fatigue, pain with swallowing , epigastric tenderness . Began omeprazole and given GI referral. Symptoms resolved after 1.5 months on medication s. - labs ordered today, c/w medication for now- avoid NSAIDS- keep GI appointmen t for today Anemia 586609403 D64.9 Anemia of 8.7 found at [facility] 10/22/2022.P resents 12/03/2022 with significan t fatigue, Hgb found to be 9.1 and iron 21, began iron supplement sCurrently taking iron BID, symptoms greatly improved with use of iron and PPI- recheck levels today Overweight 058510892 E66 .3 Advised decreased portion sizes, good food choices, limited eating out or fast food and eliminate soda and juice from diet. Advised physical activity daily and offered encouragem ent to continue with positive changes made so far. Strain of neck muscle 36 3817703 S16.1XXA Right posterior shoulder causing her pain x 3 weeks with no known cause, states this pain is different than her prior right shoulder pain. Has good ROM of shoulder and denies weakness. Notes pain is worse at night when trying to sleep or when carrying something heavy.On PE: right shoulder joint overall normal, right trapezius muscle stiff and tender to palpation- Modify your activity for 3-6 weeks.1. Massage area of pain, can use topical medication s like IcyHot2. Avoid heavy lifting3. Use positions that promote comfort4. Gradually resume activities as tolerated, which include gradually increasing low-stress aerobic exercise.5 . Ice for 20-30 minutes several times a day for the first 48 hours after pain started.6. Apply heat for 20-30 minutes several times a day 48 hours after the pain started.7. Healing can take up to 6 weeks8. Strengthen ing exercises once back pain is gone. [id number] Rusty Aguilera [facility] [address] [place] [address] 04/21/2023 14:21:43 04/24/2023 15:19:36 Impingement syndrome of right shoulder region 6041864408 60430 M75.41 Tendinitis of long head of biceps brachii of right shoulder 535499667 M75.21 Adhesive c apsulitis of right shoulder 1807993517 46321 M75.01 [id number] AILYN KOHLER (AERIAL TRAM OPERATOR) [address] [place] [address] 2023 14:01:01 05/07/2023 13:08:47 Functional cyst of ovary 213320370 N83.291 CT from ED reviewed: Dominant right ovarian follicular cyst. Will follow up with TVUS to further assess. Torsion precaution s discussed. [id number] MD Chris Lynch (Adult Med) [address] [place] [address] 08/12/2023 15:52:32 08/13/2023 18:08:44 Abnormality of nail of toe 277683969 L60.8 Will get toenail clipping for fungal culture and stain. Will check chem panel for LFTs in case toe nail clipping is positive. Would like to treat with anti-funga l medication if toenail clipping is positive. Discussed side effect of medication including hepatotoxi city. Patient will try antifungal cream on dry areas of heel. Anemia 174846472 D64.9 Patient has completed a course of iron. Will repeat CBC. Is trying to schedule EGD and colonoscop y. Was having a hard time getting through to gastroente rologist. Spoke to their office today and they said it looked like she canceled the original procedure and she just needs to call to reschedule . I gave her the office phone number and advised her to call. Abdominal pain 94634962 R10.9 Was at ER and told had possible kidney stones. Will get records. Will check urine. Exam today is not clearly consistent with kidney stones. Saw Gastro enterologi st within the last couple of months and was scheduled for EGD and colonoscop y. Enocourage d her to get that done. Will follow up in the next two to three months. Will let her know UA result and if there is blood will proceed with evaluation for possible kidney stone. Skin finding 269371907 R 23.9 Has new skin lesions. Proceed with dermatolog y referral. [id number] [facility] [address] [place] [phone] 10/15/2023 15:59:06 10/20/2023 16:14:54 Overweight 554717946 E66.3 Low back pain 374312386 M54.50 Edema of l ower extremity 810363874 R60.0 Cyst of ovary 56167736 N 83.209 Temporoman dibular joint disorder 26671032 M26.642 [id number] MD Chris Lynch (Adult Med) [address] [place] [address] 11/10/2023 13:31:37 11/17/2023 13:39:23 Multiple joint pain 21433347 M25.50 Joint pains in hand and ankle. Will order xrays. Blood work to check for auto-immun e disease. Cyst of ovary 70925027 N 83.209 Ultrasound showed a follicular cyst on left ovary. Patient is no longer experienci ng pelvic pain. I discussed this with patient and explained to her that these cysts are physiologi c, but we do need to make sure it resolves. She will repeat the ultrasound in six weeks prior to her follow up in eight weeks. She should seek immediate medical attention if she has pain or new symptoms. Headache 15411429 R51.9 Pain is reproduced when palpate over scalp. This would be consistent with muscle pain. Patient is likely experienci ng muscle tension headaches. Will do a trial of physical therapy. [id number] MD Chris Lynch (Adult Med) [address] [place] [address] 02/24/2024 11:37:07 03/17/2024 11:39:06 Follicular cyst of ovary 2267248 N83.00 Had ultrasound at ER. She said they did not see anything abnormal. Will get results. If cyst has resolved no further evaluation necessary. Thoracic back pain 47029 8004 M54.6 Pain in the area of the thoracic spine that is worse when she is trying to sleep at night. No precipitat ing factor. Will get x-ray. Tendinitis of right foot 6610567862 8541305 M77.9 Flexor tendonitis on exam. Will treat with rest, ice, anti-infla mmatory, and exercises. If symptoms do not resolve will let me know. Will let me know if she has any stomach pain. Abdominal pain 84268492 R10.9 Was seen in ER in early January. GI symptoms have resolved. Has had colonoscop y. Was told needs repeat in seven years. Will observe for recurrence of symptoms. [id number] [facility] [address] [place] [address] 03/24/2024 16:14:05 03/25/2024 10:34:00 Headache 08418162 R51.9 Acute onset of headaches, arthralgia s, and fatigue. I suspect this may be due to a virus. COVID and Influenza negative. No neurologic deficits on exam. Advised patient to rest and drink fluids. Cannot tolerate NSAID due to stomach pain. Will try Tramadol. I advised her to seek medical attention if symptoms become work or not improving in the next few days. Will follow up in one week. [id number] Nakita Dexter MD [facility] (Adult [facility]) [address] [place] [phone] 03/30/2024 09:21:24 03/31/2024 14:33:09 Hordeolum externum of right eyelid 6435274267 19987 H00.013 Stye right upper eyelid appears worse but that may be because coming to the surface. Explained this to patient. Will continue to apply heat. Will switch from drops to ointment along with massage which will likely be more effective to allow lesion to drain. If it has not resolved by the end of the week she will let me know. Discussed the importance of good hygeine to avoid spread of infection. Viral syndrome 492229823 B34.9 Headaches not as severe and less frequent. Over all feeling better. Can continue Tramadol TID prn for headache. If not resolved by the end of the week let me know. [id number] MD Chris Lynch (Adult Med) [address] [place] [address] 05/31/2024 16:27:45 06/04/2024 15:30:48 Chronic back pain greater than three months duration 9355589166 02 G89.29 Diffuse back pain. No neurologic signs or symptoms. X-ray done in the last six months normal. Will try physical therapy. Recommende d heat. Will try a muscle relaxer at night. Follow up in three months. Seek immediate medical attention if has any neurologic changes. Hyperlipid emia screening 388940035 Z13.220 Will return for fasting lipids. Health Concerns Section Related Observation LastModified by Organization Detai ls LastModified Time None Recorded Concern Status LastModified by Organization Details LastModified Time None Recorded Advance Directives Directive Y: Payers Encounter Date Sequence Insurance Name Policy Number Policy Fournier Covered Member ID Fournier Member ID Guarantor Name 11/10/2023 1 [facility] ([facility] [id number] Iva Price [id number] Iva Price 02/24/2024 1 [facility] [id number] Iva Price [id number] Iva Price 03/24/2024 1 [facility] [id number] Iva Price [id number] Iva Price 03/30/2024 1 [facility] [id number] Iva Price [id number] 1 Iva Price 05/31/2024 1 [facility] [id number] Iva Price [id number] Iva Price Notes Date Note Type Note Provider Name and Address Organization Details Recorded Time 11/10/2023 text/html here for follow up, had pelvic ultrasound done, originally saw Tracie in April 2023 for right sided pelvic pain, had ultrasound done and they were unable to see ovaries, was told to have repeat ultrasound done after a few months, this is her repeat ultrasound, no longer has right sided pain, now having only intermittent pinching pain on the right side which she describes as normal menstrual pains, no other pelvic pains, headache better, now gets occasional shocks in head, shocks go up her neck and the back of her head, go up to the to of her head,up neck, the medicine I gave her made her sleepy, pain is worse when move head all the way to right side, also having right ankle pain, pain in right middle finger and notices a bump Nakita Dexter MD Attn: Accounting[address] [place], [address], [facility] 11/10/2023 18:25:09 02/24/2024 text/html went to the emergency room, had pain in lower stomach, said had little stones, treated for infection, feels much better, had colonoscopy and recommended follow up in seven years, back pain, has had back pain for two months, said there is some arthritis, now worse, bigger area that is hurting, walking during the day not as bad, after two hours has to get up, in the morning when steps down has pain on the top of the foot, no injury, middle of back, hurts when moves arm, repeated ultrasound at [facility], numbness in the back of the right calf, Nakita Dexter MD Attn: Accounting[address] [place], [address], [facility] 03/10/2024 19:00:08 03/24/2024 text/html Last st ye right eye and headache, went to urgent care, treated her for the stye but not the headache, still has headache, headache is all over head, goes into upper back, tension, headache comes and goes, has been taking Tylenol, helping a little bit, feels tired, gets up for an hour and exhausted, pain in hips, nausea, no diarrhea, no cough, no runny nose, no sore throat, Meloxicam made her feel weird, Naprosyn upset stomach, Nakita Dexter MD Attn: Accounting,[address] [place], [address], [facility] 03/24/2024 18:51:10 03/30/2024 text/html follow up, headache is better, last took medicine for headache yesterday during the day, takes two during the day, yesterday only needed one, sometimes eye hurts, stye has gotten worse, has been using eye drops she was given by urgent care, also has been putting heat on it, feels like something heavy in neck, headache started about a week ago, stye started two days after the headache, also had body aches and slight nausea, Nakita Dexter MD Attn: Accounting[address] [facility], [place], [address], [facility] 03/30/2024 09:50:18 05/31/2024 text/html continues with diffuse back pain, cannot sleep six hours in a row, three or four hours and wakes because of pain, has had this pain for a year, no injury, when lays on side center of body hurts, no radiating pains, no loss of bowel or bladder control, no numbness, not taking any pain medicine, had colonoscopy and was told to repeat it in seven years, eye lesion resolved Nakita Dexter MD Attn: Accounting[address] [place], [address], [facility] 05/31/2024 19:22:00 OBGyn Episode Ob Episode Information Episode Created Date Number of Fetuses Patient Bloodtype Patient rh Status Prepregnancy Weight lbs Domestic Partner Domestic Partner Phone Father Name Electrical Test Technician Status 09/27/19 21 1 O Positive 174 Carlos Enrique CLOSED Fetus Data First Name Last Name Admitted to NICU Weight (g) Sex Living Outcome Pediatric Complications Fetus ID Race Codes Race Delivery Type , Spontane ous [id number] Problems Problem Notes no epidural, unsure circDr Herbie, both breast and bottle, bilat salpingectomy Problem Name Start Date End Date Resolution Snomed Code Note Missed miscarriage 1 79740358 Prediabetes 0 475738810 Abnormal progesterone 1 238203350 Degeneration of intervertebral disc 1 83493718 Thoracic and lumbar spine 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 SARS-CoV-2 1 595611893 + 04/2020 Helicobacter pylori gastrointestinal tract infection 0 906542489 Past history of miscarriage 1 384612249 Advanced maternal age 1 771990036 HPV - Human papillomavirus test positive 026749071 Iron deficiency anemia 0 46020355 Esau Calculation Initial Esau Date Initial Exam Date Initial Exam Provider Initial Ultrasound Date Last Menstrual Period Date Ultra Sound Weeks Gestation 06/16/2021 09/26/2020 [facility] 10/22/2020 08/08/2020 6 Eighteen To Twenty Week Esau Update Ultra Sound Date Fundal Height At Umbil Quickening Date Ultra Sound Latest Weeks Gestation Final Esau Confirmed By Final Esau Confirmed Date Final Esau Date Ultra Sound Latest Days Gestation 0 [facility] 10/30/2020 022 0 Pre- Flowsheet Flowsheet Date 10/10/2020 Morrow Score Blood Edema Fundus Height Fundus Units Glucose Ketones Leukocytes Nitrite Labor Signs Protein Cervic Dilation Cervic Effacement Cervic Station Type Weight in lbs Pre/Post Dialysis Refused BP Diastolic BP Location Tested BP Systolic BP Type Fetus Heart Rate Present Fetus Movement Comments ACOG at 9 weeks. Test result s reviewed. OB educational packet reviewed and will be provided to patient at next visit. Flowsheet Date 10/30/2020 Morrow Score Blood Edema Fundus Height Fundus Units Glucose Ketones Leukocytes Nitrite Labor Signs Protein Cervic Dilation Cervic Effacement Cervic Station Type Weight in lbs Pre/Post Dialysis Refused Stated 174.85329880769 BP Diastolic BP Location Tested BP Systolic BP Type 74 118 sitting Fetus Heart Rate Present Fetus Movement Comments MTHFR, repeat ultrasound, dr mathew progesterone, increased progesterone to QID Flowsheet Date 11/02/2020 Morrow Score Blood Edema Fundus Height Fundus Units Glucose Ketones Leukocytes Nitrite Labor Signs Protein Cervic Dilation Cervic Effacement Cervic Station Type Weight in lbs Pre/Post Dialysis Refused 0.0 Not Performed BP Diastolic BP Location Tested BP Systolic BP Type Fetus Heart Rate Present Fetus Movement Comments spontaneous miscarriage conf irmed in [facility] Emergency room sent out with Cytotec for completion of miscarriage retained products if no completion may need D&C Menstrual History Last Menstrual Date Menses Monthly On Bcp Conception Prior Menses Frequency Hcg Plus Date Menarche Onset Age 0308/08/2020 true 14 Genetic Screening And Infection History Question Response Note Patient's Age Will Be 35 Years Or Older At Estim ated Date of Delivery true Thalassemia (Niuean, Latvian, Mediterranean, Or Background): MCV < 80 false Neural Tube Defect (Meningomyelocele, Spina Bifi da, Or Anencephaly) false Congenital Heart Defect false Down Syndrome false Merrick-Sachs (eg, Pentecostalism, Cajun, Wolof-North Star) f alse Chelsey Disease false Sickle Cell Disease Or Trait () false Hemophilia Or Other Blood Disorders false Muscular Dystrophy false Cystic Fibrosis false Rosalino's Chorea false Mental Retardation/Autism false If Yes, Was Person Tested For Fragile X? false Other Inherited Genetic Or Chromosomal Disorder false Maternal Metabolic Disorder (eg, Type 1 Diabetes , PKU) false Patient Or Baby's Father Had A Child With Defects Not Listed Above false Recurrent Loss, Or A Stillbirth true SAB Medications (including Suppl ements, Vitamins, Herbs, OTC Drugs), Illicit/Recreational Drugs, Alcohol false If Yes, Agent(s) And Strength/Dosage false Any Other Genetic History false Live With Someone With TB Or Exposed To TB false Patient Or Partner Has History Of Genital Herpes false Rash Or Viral Illness Since Last Menstrual Perio d false History Of STD, Gonorrhea, Chlamydia, HPV, Syphi lis false Other Infection History false History of HIV false History of Hepatitis false Prior GBS-infected child false Delivery Information Delivery Date Delivery Type Labor Anesthesia Weeks Gestation Incision Type Labor Labor Length Hrs Delivered By Post Complications Tubal Sterilization Discharge Date Comments 1 9.5 Discharge Information Feeding Method Contraceptive Method Maternal HG B and HCT Levels Ob Episode Information Episode Created Date Number of Fetuses Patient Bloodtype Patient rh Status Prepregnancy Weight lbs Domestic Partner Domestic Partner Phone Father Name Electrical Test Technician Status 07/04/19 15 1 CLOSED Fetus Data First Name Last Name Admitted to NICU Weight (g) Sex Living Outcome Pediatric Complications Fetus ID Race Codes Race Delivery Type Carlos Enrique corado false 4422.52 2 M Full Term [id number] Levy Elida can Emily n Vaginal Esau Calculation Initial Esau Date Initial Exam Date Initial Exam Provider Initial Ultrasound Date Last Menstrual Period Date Ultra Sound Weeks Gestation 07/04/2014 0 Eighteen To Twenty Week Esau Update Ultra Sound Date Fundal Height At Umbil Quickening Date Ultra Sound Latest Weeks Gestation Final Esau Confirmed By Final Esau Confirmed Date Final Esau Date Ultra Sound Latest Days Gestation 0 0 Pre- Flowsheet Flowsheet Date 07/04/2014 Morrow Score Blood Edema Fundus Height Fundus Units Glucose Ketones Leukocytes Nitrite Labor Signs Protein Cervic Dilation Cervic Effacement Cervic Station Type Weight in lbs Pre/Post Dialysis Refused 160.324648955984 BP Diastolic BP Location Tested BP Systolic BP Type 58 R arm 100 sitting Fetus Heart Rate Present Fetus Movement Comments Menstrual History Last Menstrual Date Menses Monthly On Bcp Conception Prior Menses Frequency Hcg Plus Date Menarche Onset Age Delivery Information Delivery Date Delivery Type Labor Anesthesia Weeks Gestation Incision Type Labor Labor Length Hrs Delivered By Post Complications Tubal Sterilization Discharge Date Comments 4 [facility] 38 false 4 Jas Kong MD None false 05/01/2014 Discharge Information Feeding Method Contraceptive Method Maternal HG B and HCT Levels Bottle none 03/17 Ob Episode Information Episode Created Date Number of Fetuses Patient Bloodtype Patient rh Status Prepregnancy Weight lbs Domestic Partner Domestic Partner Phone Father Name Electrical Test Technician Status 07/06/19 15 1 DELETED Fetus Data First Name Last Name Admitted to NICU Weight (g) Sex Living Outcome Pediatric Complications Fetus ID Race Codes Race Delivery Type Carlos Enrique anguiano false 4422.52 2 M true Full Term [address] declin ed Patie nt Decli gabo Vaginal Problems Problem Notes Problem Name Start Date End Date Resolution Snomed Code Not e Fibrocystic disease of breast 56229177 Esau Calculation Initial Esau Date Initial Exam Date Initial Exam Provider Initial Ultrasound Date Last Menstrual Period Date Ultra Sound Weeks Gestation 02/19/2016 0 Eighteen To Twenty Week Esau Update Ultra Sound Date Fundal Height At Umbil Quickening Date Ultra Sound Latest Weeks Gestation Final Esau Confirmed By Final Esau Confirmed Date Final Esau Date Ultra Sound Latest Days Gestation 0 0 Menstrual History Last Menstrual Date Menses Monthly On Bcp Conception Prior Menses Frequency Hcg Plus Date Menarche Onset Age Delivery Information Delivery Date Delivery Type Labor Anesthesia Weeks Gestation Incision Type Labor Labor Length Hrs Delivered By Post Complications Tubal Sterilization Discharge Date Comments Sponta neous None [address] jas okng None false 05/01/2014 Discharge Information Feeding Method Contraceptive Method Maternal HG B and HCT Levels Bottle none Ob Episode Information Episode Created Date Number of Fetuses Patient Bloodtype Patient rh Status Prepregnancy Weight lbs Domestic Partner Domestic Partner Phone Father Name Electrical Test Technician Status 02/19/20 16 1 CLOSED Fetus Data First Name Last Name Admitted to NICU Weight (g) Sex Living Outcome Pediatric Complications Fetus ID Race Codes Race Delivery Type 4082.32 8 M Full Term 09757 Vaginal Esau Calculation Initial Esau Date Initial Exam Date Initial Exam Provider Initial Ultrasound Date Last Menstrual Period Date Ultra Sound Weeks Gestation 0 Eighteen To Twenty Week Esau Update Ultra Sound Date Fundal Height At Umbil Quickening Date Ultra Sound Latest Weeks Gestation Final Esau Confirmed By Final Esau Confirmed Date Final Esau Date Ultra Sound Latest Days Gestation 0 0 Menstrual History Last Menstrual Date Menses Monthly On Bcp Conception Prior Menses Frequency Hcg Plus Date Menarche Onset Age Delivery Information Delivery Date Delivery Type Labor Anesthesia Weeks Gestation Incision Type Labor Labor Length Hrs Delivered By Post Complications Tubal Sterilization Discharge Date Comments 9 None false 6 Discharge Information Feeding Method Contraceptive Method Maternal HG B and HCT Levels Ob Episode Information Episode Created Date Number of Fetuses Patient Bloodtype Patient rh Status Prepregnancy Weight lbs Domestic Partner Domestic Partner Phone Father Name Electrical Test Technician Status 02/19/20 16 1 CLOSED Fetus Data First Name Last Name Admitted to NICU Weight (g) Sex Living Outcome Pediatric Complications Fetus ID Race Codes Race Delivery Type 4082.32 8 F Full Term 67138 Vaginal Esau Calculation Initial Esau Date Initial Exam Date Initial Exam Provider Initial Ultrasound Date Last Menstrual Period Date Ultra Sound Weeks Gestation 0 Eighteen To Twenty Week Esau Update Ultra Sound Date Fundal Height At Umbil Quickening Date Ultra Sound Latest Weeks Gestation Final Esau Confirmed By Final Esau Confirmed Date Final Esau Date Ultra Sound Latest Days Gestation 0 0 Menstrual History Last Menstrual Date Menses Monthly On Bcp Conception Prior Menses Frequency Hcg Plus Date Menarche Onset Age Delivery Information Delivery Date Delivery Type Labor Anesthesia Weeks Gestation Incision Type Labor Labor Length Hrs Delivered By Post Complications Tubal Sterilization Discharge Date Comments 4 None 40 false 4 Discharge Information Feeding Method Contraceptive Method Maternal HG B and HCT Levels Ob Episode Information Episode Created Date Number of Fetuses Patient Bloodtype Patient rh Status Prepregnancy Weight lbs Domestic Partner Domestic Partner Phone Father Name Electrical Test Technician Status 02/19/20 16 1 CLOSED Fetus Data First Name Last Name Admitted to NICU Weight (g) Sex Living Outcome Pediatric Complications Fetus ID Race Codes Race Delivery Type 3628.73 6 F Full Term 31060 Vaginal Esau Calculation Initial Esau Date Initial Exam Date Initial Exam Provider Initial Ultrasound Date Last Menstrual Period Date Ultra Sound Weeks Gestation 0 Eighteen To Twenty Week Esau Update Ultra Sound Date Fundal Height At Umbil Quickening Date Ultra Sound Latest Weeks Gestation Final Esau Confirmed By Final Esau Confirmed Date Final Esau Date Ultra Sound Latest Days Gestation 0 0 Menstrual History Last Menstrual Date Menses Monthly On Bcp Conception Prior Menses Frequency Hcg Plus Date Menarche Onset Age Delivery Information Delivery Date Delivery Type Labor Anesthesia Weeks Gestation Incision Type Labor Labor Length Hrs Delivered By Post Complications Tubal Sterilization Discharge Date Comments 8 None false 4 Discharge Information Feeding Method Contraceptive Method Maternal HG B and HCT Levels Ob Episode Information Episode Created Date Number of Fetuses Patient Bloodtype Patient rh Status Prepregnancy Weight lbs Domestic Partner Domestic Partner Phone Father Name Electrical Test Technician Status 04/16/20 16 1 O Positive 161 parsley CLOSED Fetus Data First Name Last Name Admitted to NICU Weight (g) Sex Living Outcome Pediatric Complications Fetus ID Race Codes Race Delivery Type Dilayl a Madi s false 4224.07 56 F true [place] [id number] [id number] White Vaginal Problems Problem Notes baby girl per ultrasound, na me is going to be Dilayla Oliver, breast feeding, tubal ligation. pt is unsure of tubal ligation Electrical Test Technician is to be decided. possibly [facility] doctor. Papers signed today 09/18/2016. information given to patient about post sterilization in Hebrew. Vaginal NCB. As of 10/01/2016 pt is unsure about getting tubal ligation. Kareem FRANZ 09/18/2016 mds, 11/11/16 pt still UNSURE OF PPBTL,cb-rma PATIENT STATED TO [facility] STAFF THAT SHE DOES NOT WANT TO GET HER TUBES TIED POST . NO TUBAL LIGATION. 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 265343946 Advanced maternal age 621572505 Esau Calculation Initial Esau Date Initial Exam Date Initial Exam Provider Initial Ultrasound Date Last Menstrual Period Date Ultra Sound Weeks Gestation 11/26/2016 04/16/2016 sheree 04/17/2016 02/25/2016 8 Eighteen To Twenty Week Esau Update Ultra Sound Date Fundal Height At Umbil Quickening Date Ultra Sound Latest Weeks Gestation Final Esau Confirmed By Final Esau Confirmed Date Final Esau Date Ultra Sound Latest Days Gestation 04/17/20 16 8 [email or web address] 05/28/2016 11/27/19 17 0 Pre- Flowsheet Flowsheet Date 04/16/2016 Morrow Score Blood Edema Fundus Height Fundus Units Glucose Ketones Leukocytes Nitrite Labor Signs Protein Cervic Dilation Cervic Effacement Cervic Station neg none 7 cm none negative neg Type Weight in lbs Pre/Post Dialysis Refused 161.642276734259 BP Diastolic BP Location Tested BP Systolic BP Type 62 100 sitting Fetus Heart Rate Present A Absent Fetus Movement A No Comments nob us now labs/cultures now Flowsheet Date 05/03/2016 Morrow Score Blood Edema Fundus Height Fundus Units Glucose Ketones Leukocytes Nitrite Labor Signs Protein Cervic Dilation Cervic Effacement Cervic Station Type Weight in lbs Pre/Post Dialysis Refused BP Diastolic BP Location Tested BP Systolic BP Type Fetus Heart Rate Present Fetus Movement Comments Flowsheet Date 05/28/2016 Morrow Score Blood Edema Fundus Height Fundus Units Glucose Ketones Leukocytes Nitrite Labor Signs Protein Cervic Dilation Cervic Effacement Cervic Station neg none 14 wks negative none Type Weight in lbs Pre/Post Dialysis Refused 165.743323495141 BP Diastolic BP Location Tested BP Systolic BP Type 64 106 sitting Fetus Heart Rate Present A 145 Present Fetus Movement A No Comments Flowsheet Date 06/25/2016 Morrow Score Blood Edema Fundus Height Fundus Units Glucose Ketones Leukocytes Nitrite Labor Signs Protein Cervic Dilation Cervic Effacement Cervic Station neg none 18 wks none negative none neg Type Weight in lbs Pre/Post Dialysis Refused 170.498918990608 BP Diastolic BP Location Tested BP Systolic BP Type 56 104 sitting Fetus Heart Rate Present A 144 Present Fetus Movement A Yes Comments afp, us, depression meds Flowsheet Date 07/24/2016 Morrow Score Blood Edema Fundus Height Fundus Units Glucose Ketones Leukocytes Nitrite Labor Signs Protein Cervic Dilation Cervic Effacement Cervic Station neg none 21.5 cm none negative none neg Type Weight in lbs Pre/Post Dialysis Refused 173.528370739433 BP Diastolic BP Location Tested BP Systolic BP Type 54 106 sitting Fetus Heart Rate Present A 149 Present Fetus Movement A Yes Comments Rash on lower legs and oral sores Flowsheet Date 08/21/2016 Morrow Score Blood Edema Fundus Height Fundus Units Glucose Ketones Leukocytes Nitrite Labor Signs Protein Cervic Dilation Cervic Effacement Cervic Station neg none 24 cm none trace none trace Type Weight in lbs Pre/Post Dialysis Refused 174.00539165902 BP Diastolic BP Location Tested BP Systolic BP Type 60 110 sitting Fetus Heart Rate Present A 147 Present Fetus Movement A Yes Comments ultrasound at [facility] today Flowsheet Date 09/18/2016 Morrow Score Blood Edema Fundus Height Fundus Units Glucose Ketones Leukocytes Nitrite Labor Signs Protein Cervic Dilation Cervic Effacement Cervic Station neg none 30 cm none negative none neg Type Weight in lbs Pre/Post Dialysis Refused 177.799372497073 BP Diastolic BP Location Tested BP Systolic BP Type 58 114 sitting Fetus Heart Rate Present A 144 Present Fetus Movement A Yes Comments TUBAL PAPERS SIGNED Flowsheet Date 10/01/2016 Morrow Score Blood Edema Fundus Height Fundus Units Glucose Ketones Leukocytes Nitrite Labor Signs Protein Cervic Dilation Cervic Effacement Cervic Station neg none 32 wks none negative none neg Type Weight in lbs Pre/Post Dialysis Refused 178.168598703232 BP Diastolic BP Location Tested BP Systolic BP Type 62 104 sitting Fetus Heart Rate Present A 139 Present Fetus Movement A Yes Comments Flowsheet Date 10/15/2016 Morrow Score Blood Edema Fundus Height Fundus Units Glucose Ketones Leukocytes Nitrite Labor Signs Protein Cervic Dilation Cervic Effacement Cervic Station neg none 33 cm none negative none neg Type Weight in lbs Pre/Post Dialysis Refused 179.609757757188 BP Diastolic BP Location Tested BP Systolic BP Type 60 110 sitting Fetus Heart Rate Present A 141 Present Fetus Movement A Yes Comments 36wk labs next Flowsheet Date 11/04/2016 Morrow Score Blood Edema Fundus Height Fundus Units Glucose Ketones Leukocytes Nitrite Labor Signs Protein Cervic Dilation Cervic Effacement Cervic Station neg none 39 cm none negative none neg 0cm 20% - 3 Type Weight in lbs Pre/Post Dialysis Refused 185.139684253767 BP Diastolic BP Location Tested BP Systolic BP Type 62 104 sitting Fetus Heart Rate Present A 152 Present Fetus Movement A Yes Comments 36.6 wks CHERYL, plan for induc tion around 11-20-16. Flowsheet Date 11/11/2016 Morrow Score Blood Edema Fundus Height Fundus Units Glucose Ketones Leukocytes Nitrite Labor Signs Protein Cervic Dilation Cervic Effacement Cervic Station neg 1+ 39 cm none negative Nance Kohli neg 0cm 50% -2 Type Weight in lbs Pre/Post Dialysis Refused 184.400359382784 BP Diastolic BP Location Tested BP Systolic BP Type 66 108 sitting Fetus Heart Rate Present A 133 Present Fetus Movement Comments reports occasional ctx's, no t painful. IOL scheduled for November 20 per pt. SVE: cervix soft, head low, Flowsheet Date 11/18/2016 Morrow Score Blood Edema Fundus Height Fundus Units Glucose Ketones Leukocytes Nitrite Labor Signs Protein Cervic Dilation Cervic Effacement Cervic Station neg trace 35 cm none negative none neg 0cm 0% -4 Type Weight in lbs Pre/Post Dialysis Refused 184.792767045622 BP Diastolic BP Location Tested BP Systolic BP Type 66 106 sitting Fetus Heart Rate Present A 140 Present Fetus Movement A Yes Comments Flowsheet Date 11/25/2016 Morrow Score Blood Edema Fundus Height Fundus Units Glucose Ketones Leukocytes Nitrite Labor Signs Protein Cervic Dilation Cervic Effacement Cervic Station neg 1+ 38 cm none trace Uterine Contract ions neg 2cm 70% -2 Type Weight in lbs Pre/Post Dialysis Refused 187.275643720200 BP Diastolic BP Location Tested BP Systolic BP Type 62 122 sitting Fetus Heart Rate Present A 132 Present Fetus Movement A Yes Comments Cervix dilation measured tod ay (2cm). Patient is to [facility] at [facility] for induction of labor. LABOR, PREECLAMPSIA PRECAUTIONS AND KICK COUNTS DISCUSSED Flowsheet Date 01/07/2017 Morrow Score Blood Edema Fundus Height Fundus Units Glucose Ketones Leukocytes Nitrite Labor Signs Protein Cervic Dilation Cervic Effacement Cervic Station Type Weight in lbs Pre/Post Dialysis Refused 172.458726748204 BP Diastolic BP Location Tested BP Systolic BP Type Fetus Heart Rate Present Fetus Movement Comments Menstrual History Last Menstrual Date Menses Monthly On Bcp Conception Prior Menses Frequency Hcg Plus Date Menarche Onset Age 1002/25/2016 false Genetic Screening And Infection History Question Response Note Patient's Age Will Be 35 Years Or Older At Estim ated Date of Delivery true Thalassemia (Niuean, Latvian, Mediterranean, Or Background): MCV < 80 false Neural Tube Defect (Meningomyelocele, Spina Bifi da, Or Anencephaly) false Congenital Heart Defect false Down Syndrome false Merrick-Sachs (eg, Pentecostalism, Cajun, Wolof-North Star) f alse Chelsey Disease false Sickle Cell Disease Or Trait () false Hemophilia Or Other Blood Disorders false Muscular Dystrophy false Cystic Fibrosis false [place]'s Chorea false Mental Retardation/Autism false If Yes, Was Person Tested For Fragile X? false Other Inherited Genetic Or Chromosomal Disorder false Maternal Metabolic Disorder (eg, Type 1 Diabetes , PKU) false Patient Or Baby's Father Had A Child With Defects Not Listed Above false Recurrent Loss, Or A Stillbirth false Medications (including Suppl ements, Vitamins, Herbs, OTC Drugs), Illicit/Recreational Drugs, Alcohol false If Yes, Agent(s) And Strength/Dosage false Any Other Genetic History false Live With Someone With TB Or Exposed To TB false Patient Or Partner Has History Of Genital Herpes false Rash Or Viral Illness Since Last Menstrual Perio d false History Of STD, Gonorrhea, Chlamydia, HPV, Syphi lis true hpv Other Infection History false Plans and Education First Trimester Discussed Date Discussion Item Discussion Note Discuss ed By 04/16/2016 Anticipated course of care [facility] 04/16/2016 Alcohol [facility] 04/16/2016 Intimate partner violence [facility] 04/16/2016 Environmental/work hazards [facility] [place] [facility] 04/16/2016 Screening for aneuploidy [facility] 04/16/2016 Nutrition counseling ; special diet; dietary precautions (mercury, listeriosis) [facility] 04/16/2016 Childbirth classes/hospital facilities [facility] 04/16/2016 HIV and other routine tests [facility] 04/16/2016 Risk factors identif ied by history [facility] 04/16/2016 Weight gain counseling [facility] 04/16/2016 Exercise [facility] 04/16/2016 Teratogens [facility] 04/16/2016 Use of any medicatio ns (including supplements, vitamins, herbs, or OTC drugs) [facility] 04/16/2016 both [facility] 04/16/2016 Sexual activity [facility] 04/16/2016 Tobacco/smoking cess ation counseling (ask, advise, assess, assist, and arrange) [facility] 04/16/2016 Illicit/recreational drugs norma epps 04/16/2016 Dental care [facility] 04/16/2016 Travel [facility] 04/16/2016 Seat belt use [facility] 04/16/2016 Indications for ultrasonography [facility] 04/16/2016 Avoidance of saunas or hot tubs [facility] 04/16/2016 Toxoplasmosis precautions (cats/raw meat) [facility] Second Trimester Discussed Date Discussion Item Discussion Note Discuss ed By 11/11/2016 Selecting a care provider 11/11/16 pt undecided on peds [email or web address] 11/11/2016 family planning/tubal sterilization 10/2616 pt signed BTL papers back in 10/02, pt OF 11/25/2016 TODAY - PT DOES NOT WANT TUBAL LIG [email or web address] 11/25/2016 Depression screening (when indicated) [place] [id number] 11/25/2016 Abnormal lab values [facility] 11/25/2016 Signs and symptoms o f labor [place] [id number] 11/25/2016 Intimate partner violence ms [email or web address] 11/25/2016 Tobacco/smoking cess ation counseling (ask, advise, assess, assist, and arrange) [place] [id number] Third Trimester Discussed Date Discussion Item Discussion Note Discuss ed By 11/25/2016 [facility] 11/11[facility]2016 Anesthesia plans yes to epidural , if needed, cb-rma 11/11/16 [email or web address] 11/25/2016 education (n ewborn screening, jaundice, SIDS/safe sleeping position, car seat) [facility] 11/11/2016 Circumcision baby girl [email or web address] 11/25/2016 [facility] 11/25[facility]2016 movement monitoring [email or web address] 11/11/2016 11/11/16 both br east and bottle, cb-rma [email or web address] 11/25/2016 Labor signs [facility] 11/25/2016 depression [facility] juan 11/25/2016 Family medical leave or disability forms [facility] 11/25/2016 Tobacco/smoking cess ation counseling (ask, advise, assess, assist, and arrange) [facility] 11/25/2016 Signs and symptoms o f preeclampsia jad Delivery Information Delivery Date Delivery Type Labor Anesthesia Weeks Gestation Incision Type Labor Labor Length Hrs Delivered By Post Complications Tubal Sterilization Discharge Date Comments 7 Sponta neous [facility] [address] Aranda None false 11/28/2016 Discharge Information Feeding Method Contraceptive Method Maternal HG B and HCT Levels Bottle condoms Ob Episode Information Episode Created Date Number of Fetuses Patient Bloodtype Patient rh Status Prepregnancy Weight lbs Domestic Partner Domestic Partner Phone Father Name Electrical Test Technician Status 09/16/19 18 1 O Positive 173 CLOSED Fetus Data First Name Last Name Admitted to NICU Weight (g) Sex Living Outcome Pediatric Complications Fetus ID Race Codes Race Delivery Type , Spontane ous [id number] Esau Calculation Initial Esau Date Initial Exam Date Initial Exam Provider Initial Ultrasound Date Last Menstrual Period Date Ultra Sound Weeks Gestation 05/04/2018 09/15/2017 [email or web address] 09/02/2017 07/28/2017 5 Eighteen To Twenty Week Esau Update Ultra Sound Date Fundal Height At Umbil Quickening Date Ultra Sound Latest Weeks Gestation Final Esau Confirmed By Final Esau Confirmed Date Final Esau Date Ultra Sound Latest Days Gestation 0 05/04/20 18 0 Pre-quinten Flowsheet Flowsheet Date 09/15/2017 Morrow Score Blood Edema Fundus Height Fundus Units Glucose Ketones Leukocytes Nitrite Labor Signs Protein Cervic Dilation Cervic Effacement Cervic Station neg none 7 wks none negative neg Type Weight in lbs Pre/Post Dialysis Refused 173.409227880721 BP Diastolic BP Location Tested BP Systolic BP Type 58 88 sitting Fetus Heart Rate Present Fetus Movement Comments Given AMA, referred for MFM, genetic counseling, and level 2 US at [facility] Flowsheet Date 10/15/2017 Morrow Score Blood Edema Fundus Height Fundus Units Glucose Ketones Leukocytes Nitrite Labor Signs Protein Cervic Dilation Cervic Effacement Cervic Station Type Weight in lbs Pre/Post Dialysis Refused 170.643373929312 BP Diastolic BP Location Tested BP Systolic BP Type 70 112 sitting Fetus Heart Rate Present Fetus Movement Comments Flowsheet Date 09/26/2020 Morrow Score Blood Edema Fundus Height Fundus Units Glucose Ketones Leukocytes Nitrite Labor Signs Protein Cervic Dilation Cervic Effacement Cervic Station Type Weight in lbs Pre/Post Dialysis Refused Preoperative 174.23353762803 BP Diastolic BP Location Tested BP Systolic BP Type Fetus Heart Rate Present Fetus Movement Comments Flowsheet Date 06/18/2022 Morrow Score Blood Edema Fundus Height Fundus Units Glucose Ketones Leukocytes Nitrite Labor Signs Protein Cervic Dilation Cervic Effacement Cervic Station Type Weight in lbs Pre/Post Dialysis Refused With clothes 176.271765141595 BP Diastolic BP Location Tested BP Systolic BP Type 72 L arm 104 sitting Fetus Heart Rate Present Fetus Movement Comments Menstrual History Last Menstrual Date Menses Monthly On Bcp Conception Prior Menses Frequency Hcg Plus Date Menarche Onset Age 0307/28/2017 false Delivery Information Delivery Date Delivery Type Labor Anesthesia Weeks Gestation Incision Type Labor Labor Length Hrs Delivered By Post Complications Tubal Sterilization Discharge Date Comments 8 Sponta neous 11.2 Discharge Information Feeding Method Contraceptive Method Maternal HG B and HCT Levels
[2024-07-27] MEDS: SODIUM CHLORIDE 0.9% IV 1,000 ML 999 ML IV CONT (15:54)
[2024-07-27] MEDS: dexAMETHasone SOD PHOS INJ 10 MG/ML 1 ML VIAL IV PUSH (15:55)
[2024-07-27] MEDS: KETOROLAC 15 MG/ML VIAL (*BKC) IV PUSH (15:55)
[2024-07-27 15:56] LABS: Basophils Percent Auto 0.5 % (0.2-1.2); Eosinophils Absolute Auto 0.1 K/mm3 (0-0.3); Eosinophils Percent Auto 1.4 % (0-4.4); Hematocrit 31.4 % (37.0-47.0); Hemoglobin 9.5 g/dL (12.0-15.0); Immature Granulocyte Absolute 0.01 K/mm3 (0.00-0.031); Immature Granulocyte Percent A 0.2 % (0-0.5); Lymphocytes Absolute Auto 3.13 K/mm3 (0.9-3.2); Mean Corpuscular HGB Conc 30.3 g/dl (32-36); Mean Corpuscular Hemoglobin 22.7 pg (26-34); Mean Corpuscular Volume 74.9 fl (80-100); Mean Platelet Volume 10.4 fl (7.4-10.4); Monocytes Absolute Auto 0.4 K/mm3 (0.1-0.6); Monocytes Percent Auto 5.8 % (2.6-8.5); Neutrophils Absolute Auto 2.6 K/mm3 (1.3-6.7); Neutrophils Percent Auto 42.1 % (45.5-73.1); Platelet Count Result 332 k/mm3 (150-375); Red Blood Count 4.19 M/mm3 (4.2-5.4); Red Cell Distribution Width 18.6 % (11.5-14.5); White Blood Count 6.3 K/mm3 (4.5-10.0)
[2024-07-27] MEDS: PROCHLORPERAZINE EDISYLATE 10 MG/2 ML VIAL IV PUSH (15:56)
[2024-07-27] MEDS: diphenhydrAMINE HCl INJ 50 MG/ML VIAL 25 MG IV PUSH (15:56)
[2024-07-27 16:08] LABS: Alanine Aminotransferase 23 U/L (6-35); Albumin Level 4.7 g/dL (3.5-5.1); Alkaline Phosphatase 74 U/L (38-126); Anion Gap 9 mmol/L (4-12); Aspartate Amino Transferase 26 U/L (14-36); Bilirubin,Total 0.4 mg/dL (0.2-1.3); Blood Urea Nitrogen 15 mg/dL (7-17); Calcium 9.4 mg/dL (8.4-10.2); Carbon Dioxide 24 mmol/L (22-30); Chloride 104 mmol/L (98-107); Estimated CRCL calculation 116 ml/min; Estimated Glomerular Filt Rate > 60; Glucose 101 mg/dL (65-110); Potassium 3.8 mmol/L (3.4-5.0); Sodium 137 mmol/L (137-145)
[2024-07-27 16:16] LABS: Ovalocytes 1+; Platelet Estimate Adequate (Adequate)
[2024-07-27 16:17] LABS: Schistocytes None Seen
[2024-07-27 16:32] LABS: Influenza A QL RT-PCR Negative (Negative); Influenza B QL RT-PCR Negative (Negative); RSV RNA, RT-PCR Negative (Negative); SARS-CoV-2 RNA PCR Negative (Negative)
[2024-07-27 17:57] VITALS: BP 114/65; PULSE 82; RESP 18; O2SAT 99
--- OUTSIDE RECORDS SUMMARY | 2024-07-27 18:00 | XMS_ITS | CONTINUITY OF CARE DOCUMENT ---
Author Name ciprianoallanedson Address Unknown Organization [facility] Address [address] [place] [address] [address] [place] [address] Phone [phone] Care Team Providers Care Manager Of Training And Development Name Role Phone Eric Bey MD Unavailable [phone] AJIT BORJA Unavailable AJIT BORJA Unavailable PROBLEMS Condition Status Date Provider Notes Prediabetes active Raymond Ahmedzai Morales's palsy active Raymond Ahmedzai Chest pain active Raymond Ahmedzai Palpitations active Misti Armstrong MD Shortness of breath active Misti Armstrong MD Varicose veins active Eric Bey MD Venous insufficiency active [place] ENCOUNTERS Date Type Provider Location Encounter Diag nosis - In-person encounter Office Visit Eric Bey MD [facility] Venous insufficiency - In-person encounter Office Visit Eric Bey MD [facility] Varicose veins - In-person encounter Office Visit Misti Armstrong MD [facility] PalpitationsShortness of breath VITAL SIGNS Date Observation Value Provider Body Mass Index (Ratio) 28.24 kg/m2 [place] blood pressure, cuff size regular Ja rret blood pressure, diastolic 65 mm[Hg] Ja rret blood pressure, systolic 105 mm[Hg] Bri fishman pulse rate 75 /min Matt weight E&M 175 [lb_av] Matt respiratory rate E&M 12 /min Matt height E&M 66 [in_i] Matt Body Mass Index (Ratio) 28.40 kg/m2 Eric Bey MD blood pressure, diastolic 70 mm[Hg] Cindy derik Licea blood pressure, systolic 109 mm[Hg] Any hailey Licea oxygen saturation, oximetry 95 % Erica Licea pulse rate 70 /min Erica Licea weight E&M 176 [lb_av] Erica Licea blood pressure, cuff size large An derik Licea height E&M 66 [in_i] Erica Licea weight E&M 178 [lb_av] Adeline Lara Body Mass Index (Ratio) 28.73 kg/m2 Denny Armstrong MD blood pressure, diastolic 72 mm[Hg] Cindy derik Licea blood pressure, systolic 107 mm[Hg] Any hailey Licea pulse rate 79 /min Erica Licea oxygen saturation, oximetry 98 % Erica Licea respiratory rate E&M 18 /min Erica scruggs blood pressure, cuff size large An derik Licea weight E&M 178 [lb_av] Erica Licea height E&M 66 [in_i] Erica Licea ALLERGIES No Known Drug Allergies HISTORY OF MEDICATION USE No Known Medication SOCIAL HISTORY Date Observation Value Provider smoking status Never smoker Eric Crockett social history reviewed E&M reviewed - no changes required Eric Bey MD social history reviewed E&M reviewed - no changes required Eric Bey MD smoking status Never smoker Erica Vinayak social history E&M S moking History: P vijaya has never smoked. Raymond Ndiaye smoking status Never smoker Erica Licea social history reviewed E&M reviewed - no changes required Raymond Ndiaye INSURANCE PROVIDERS Payer name Policy type / Coverage type Garland red republican ID [facility] [id number] ADVANCE DIRECTIVES Name Date DISCUSSED - NO DECISION MADE TREATMENT PLAN Date Name Performer [id number],S,asx Eric whittington MD [id number],S,D uplex showed venous insufficency of the GSV bilaterally. We discussed possible venogrpahy/IVUS/iliac stent. I also encouraged the patient to continue using support stockings Eric Bey MD [id number],S, Eric Bey MD [id number],B, Eric Bey MD [id number],C, F francess with PCP Eric Bey MD [id number],C,no sxs Eric Bey MD [id number],C,no sxs Eric Bey MD [id number],S, N o sxs Eric Bey MD [id number],S, P vijaya is having bilateral leg swelling and varicose veins, likely venous insufficiency. Associates with leg pain. Will obtain venous doppler BILE w/ reflux Eric Bey MD [id number],S, Raymond Navarro i [id number],S, Raymond Navarro i [id number],S, Raymond Navarro i [id number],S, Raymond Navarro i Cardiology:asx Eric Bey MD Cardiology:Duplex sh owed venous insufficency of the GSV bilaterally. We discussed possible venogrpahy/IVUS/iliac stent. I also encouraged the patient to continue using support stockings Eric Bey MD Cardiology Erci Bey MD Cardiology Eric Bey MD Cardiology: F aisha with PCP Eric Bey MD Cardiology:no sxs Eric Bey MD Cardiology:no sxs Eric Bey MD Cardiology: N o sxs Eric Bey MD Cardiology: P atient is having bilateral leg swelling and varicose veins, likely venous insufficiency. Associates with leg pain. Will obtain venous doppler BILE w/ reflux Eric Bey MD Cardiology Raymond Ndiaye Cardiology Raymond Ndiaye Cardiology Raymond Ndiaye Cardiology Raymond Ndiaye Date Name Venous Doppler Bilat eral LE - Reflux CT, Coronary Calcium Score Stress Routine Complete Echo HISTORY OF PROCEDURES Procedure Date Procedure Name Provider Procedure Notes S tatus CT- Coronary CA score Misti Armstrong MD completed EKG Misti Armstrong MD completed
--- OUTSIDE RECORDS SUMMARY | 2024-07-27 18:00 | XMS_ITS | Clinical Summary ---
Author Organization [facility] Address [address] [place] [address] Care Team Providers Care Rn Medical Surgical Name Role Phone Rusty Garcia MD Unavailable [...] Comments Blood Pressure 121/61 04/13/2023 9:25 PM [employer] Pulse 70 04/13/2023 9:25 PM [employer] Temperature 36.3 C (97.4 F) 04/13/2023 9:25 PM [employer] Respiratory Rate 16 04/13/2023 9:25 PM [employer] Oxygen Saturation 98% 04/13/2023 9:25 PM [employer] Inhaled Oxygen Concentration - - Weight 79.8 kg (176 lb) 04/13/2023 9:25 PM [employer] Height 167.6 cm (5' 6 ) 04/13/2023 9:25 PM VP OF [employer] Body Mass Index 28.41 04/13/2023 9:25 PM [employer] Plan of Treatment Health Maintenance Due Date [...] patient's age to complete this topic Insurance [facility] C/O PROVIDER SERVICES AILYN MARSH [id number] Care Teams Rn Medical Surgical Relationship Specialty Start Date End Date Sherri Jane PA-C [address] [place] [phone] PCP - General PHYSICIAN FERTILIZER APPLICATOR 04/13/23 Rusty Garcia MD [address] [address] Referring Physician VASCULAR SURGERY 12/17/16
--- OUTSIDE RECORDS SUMMARY | 2024-07-27 18:01 | XMS_ITS | Clinical Summary ---
Author Organization [facility] Address [address] [facility] [place] [address] Care Team Providers Care Barrel Scraper Name Role Phone Sherri Jane PA-C Primary Care Provider + Sherri Jane PA-C Unavailable [phone] Source Comments [facility],non-owned Affiliates and Associated Physician Practices is amultiple site organization consisting of ambulatory clinics and hospital sitesin [place], [place], [place] and [place]. This disclosure is being madepursuant to the Care Everywhere program and may not contain all information available regarding this patient. Last updated 18.[facility] Allergies No known active allergies Medications * Be aware that medications may not be up to date on this document. Alwaysverify current medications with the patient. Medication Sig Dispensed Refills Start Date End Date Status vitamin D, ergocalciferol, (DRISDOL) 1.25 MG (93427 UT) capsule Take 50,000 Units by mouth [...] age to complete this topic Care Teams Barrel Scraper Relationship Specialty Start Date End Date Sherri Jane PA-C [address] [place] [address] PCP - General 11/28/20 Sherri Jane PA-C [address] [place] [phone] 11/28/20
--- OUTSIDE RECORDS SUMMARY | 2024-07-27 18:01 | XMS_ITS | Patient Health Summary ---
Author Organization [facility] Address [address] [place] [address] Care Team Providers Care Log Yard Derrick Operator Name Role Phone Sherri Jane PA-C Primary Care Provider + Sherri Jane PA-C Unavailable [phone] Note from [facility],non-owned Affiliates and Associated Physician Practices is amultiple site organization consisting of ambulatory clinics and hospital sitesin [place], [place], [place] and [place]. This disclosure is being madepursuant to the Care Everywhere program and may not contain all information available regarding this patient. Last updated 18.[facility] Allergies No known active allergies Medications * Be aware that medications may not be up to date on this document. Alwaysverify current medications with the patient. * vitamin D, ergocalciferol, (DRISDOL) 1.25 MG (86539 UT) capsule Take 50,000 Units by mouth [...] Santoyo MD - 11/28/2020 Eliza Morales Franck NINFA-SALES PLANNING ANALYST VASCULAR LAB OR DERABLES * SONOGRAM - COMPLETE (08/21/2016 1:59 PM CDT) Only the most recent of4 resultswithin the time period is included. Anatomical Region Laterality Modality Other 08/21/2016 1:59 PM CDT Narrative 08/21/2016 11:18 PM CDT [facility] PHONE: FAX: Pat. Name: JAZZ RAGLAND. No: [id number] Study Date: 08/21/2016 1:59pm , Age: 13 1975, 41 Pregnancies: 5, Para 4 Height: 67 in Weight: 154 lb LMP: Unknown GA by 1st: 26w1d GA by US: 27w1d GA Selected: 26w1d (From First S) ALESIA: 11/26/2016 Referring MD: Gio Epps MD Public Records Officer: Rachel Fitzpatrick RDMS/LANDON BMI: 24.12 Hist/Ind: Complete anatomic survey AMA History of macrosomia Low Risk NIPT MEASUREMENTS & AGE GROWTH EVALUATION Measurement GA Range Srce %for GA Ratios ----- ---- ------- BPD 6.7 cm 27w0d (89l9b-92p6h) Hadl BPD 68% FL/BPD 0.78 (0.71 - 0.87) HC 24.9 cm 27w1d (36d4w-62a3b) Hadl HC 70% FL/AC 0.23 (0.20 - 0.24) AC 22.4 cm 26w6d (00c7s-96p2k) Hadl AC 63% HC/AC 1.11 (1.00 - 1.19) FL 5.2 cm 27w6d (22f4k-20n7h) Hadl FL 86% CI 0.76 (0.70 - 0.86) HL 4.6 cm 27w0d (24j2k-01w2f) Mikael HL 65% GA for sonogram 27w1d (82b0f-32c7j) Weight Estimate: based on (BPD,HC,AC,FL) Avg Weight: [...] <Electronic Signature> 08/21/2016 11:18pm Alan Epps MD [facility] ORDERABLES * PANORAMA TEST (PO REF LAB) (05/28/2016) Comment Genetics normal female NIPT BLOOD SPECIMEN / Unknown Historical Provider LAB - CHEMISTRY O RDERABLES * IMAGING/RADIOLOGY/XRAY RESULTS ORDER (09/14/2014 10:03 PM CDT) Anatomical Region Laterality Modality Other Narrative 09/14/2014 10:03 PM CDT Ordered by an unspecified provider. Scanned Document IMAGING Care Teams Log Yard Derrick Operator Relationship Specialty Start Date End Date Sherri Jane PA-C [address] [place] [address] PCP - General 11/28/20 Sherri Jane PA-C [address] [place] [address] 11/28/20
--- OUTSIDE RECORDS SUMMARY | 2024-07-27 18:01 | XMS_ITS | Referral Summary ---
Author Organization [facility] Address [address] [place] [address] Care Team Providers Care Resource Manager Name Role Phone Sherri Jane PA-C Primary Care Provider + Sherri Jane PA-C Unavailable [phone] Source Comments [facility],non-owned Affiliates and Associated Physician Practices is amultiple site organization consisting of ambulatory clinics and hospital sitesin [place], [place], [place] and [place]. This disclosure is being madepursuant to the Care Everywhere program and may not contain all information available regarding this patient. Last updated 18.[facility] Allergies No known active allergies Medications * Be aware that medications may not be up to date on this document. Alwaysverify current medications with the patient. Medication Sig Dispensed Refills Start Date End Date Status vitamin D, ergocalciferol, (DRISDOL) 1.25 MG (87904 UT) capsule Take 50,000 Units by mouth every 30 days Active Support HoseIndications:Stevenson s insufficiency Pharmacy to measure patient for correct size. Compression Pressure: 20-30mmHg knee high graduated(1 pair) 1 Each 6 12/01/2020 Active Active Problems Patient Care Coordination No te Formatting of this note migh t be different from the original. [facility] 05/2016 Problem Noted Date Diagnosed Date Prediabetes [...] of Treatment Not on file Care Teams Resource Manager Relationship Specialty Start Date End Date Sherri Jane PA-C [address] [place] [phone] PCP - General 11/28/20 Sherri Jane PA-C [address] [place] [phone] 11/28/20
== END 2024-07-27 18:00 | disposition home or self-care (01) ==
PROVIDERS: Physician Assistant; Emergency Provider Student in an Organized Health Care Education/Training Program
DX: G43.909 Migraine, unspecified, not intractable, without status migrainosus (principal); Z20.822 Contact with and (suspected) exposure to COVID-19
CPT/HCPCS: 36415; 70450; 80053; 85025; 87637; 96361; 96374; 96375; 99284; J0780; J1100; J1200; J1885; J7030